=== PATIENT | male | born 1980 | race African-American/Black ===

== ENCOUNTER 2016-12-02 16:09 | Emergency (ER) | payer BC ==
[2016-12-02] MEDS ORDERED: KETOROLAC 30 MG/ML 1 ML VIAL IVP STA (17:15)
[2016-12-02] MEDS ORDERED: SODIUM CHLORIDE 0.9% 1,000 ML IV STA (17:15)
--- NOTE | 2016-12-02 17:20 | ED ---
Abdominal Pain HPI - General Chief Complaint: Abdominal Pain Stated Complaint: Abdominal Pain Time Seen by Provider: 12/02/16 17:08 Source: patient, RN notes reviewed Mode of arrival: ambulatory Limitations: no limitations - History of Present Illness Initial Comments: 36-year-old male presents to the emergency Department chief complaint of chronic lower abdominal pain. Patient states that ever since the baby he's had chronic abdominal pain. Patient states multiple surgeons multiple specialists and never figured out. Patient states that he recently moved here from [place] and he continues to have discomfort states that he could be seen. Patient denies any nausea vomiting fever or chills. Patient states pain is no different than his chronic abdominal pain. Patient states the pain gets just be so excruciating so he rushed to the emergency department. Patient states he hasn't had any other symptoms with this. Patient states there is nothing new or changing. Patient denies any recent fever, chills, shortness of breath, chest pain, back pain, nausea vomiting, numbness or tingling, dysuria or hematuria, constipation or diarrhea, headaches or visual changes, or any other current symptoms. - Related Data Home Medications Medication Instructions Recorded Confirmed Acetaminophen-Codeine 300-30mg 1 tab PO BID PRN 12/02/16 12/02/16 [Tylenol #3] Cyclobenzaprine HCl [Amrix] 15 mg PO DAILY PRN 12/02/16 12/02/16 Allergies Allergy/AdvReac Type Severity Reaction Status Date / Time No Known Allergies Allergy Verified 12/02/16 17:23 Review of Systems ROS Statement: Those systems with pertinent positive or pertinent negative responses have been documented in the HPI. ROS Other: All systems not noted in ROS Statement are negative. Past Medical History Additional Past Medical History / Comment(s): pericarditis, bowel obstruction History of Any Multi-Drug Resistant Organisms: None Reported Past Surgical History: Bowel Resection, Hernia Repair Past Psychological History: No Psychological Hx Reported Smoking Status: Current every day smoker Past Alcohol Use History: Daily Past Drug Use History: None Reported General Exam - General Exam Comments Initial Comments: General: The patient is awake and alert, in no distress, and does not appear acutely ill. Eye: Pupils are equal, round and reactive to light, extra-ocular movements are intact; there is normal conjunctiva bilaterally. No signs of icterus. Ears, nose, mouth and throat: There are moist mucous membranes. Neck: The neck is supple, there is no tenderness. Cardiovascular: There is a regular rate and rhythm. No murmur, rub or gallop is appreciated. Respiratory: Lungs are clear to auscultation, respirations are non-labored, breath sounds are equal. No wheezes, stridor, rales, or rhonchi. Gastrointestinal: Soft, non-distended, non-tender abdomen without masses or organomegaly noted. There is no rebound or guarding present. No CVA tenderness. Bowel sounds are unremarkable. Back: There is no tenderness to palpation in the midline. There is no obvious deformity. No rashes noted. Musculoskeletal: Normal ROM, no tenderness, There is no pedal edema. There is no calf tenderness or swelling. Sensation intact. Pulses equal bilaterally 2+. Neurological: CN II-XII intact, There are no obvious motor or sensory deficits. Coordination appears grossly intact. Speech is normal. Skin: Skin is warm and dry and no rashes or lesions are noted. Psychiatric: Cooperative, appropriate mood & affect, normal judgment. Limitations: no limitations Course Vital Signs 12/02/16 12/02/16 12/02/16 16:18 16:43 17:30 Temperature 97.7 F Pulse Rate 112 H 91 98 Respiratory 20 18 18 Rate Blood Pressure 132/99 114/54 129/79 O2 Sat by Pulse 99 98 98 Oximetry 12/02/16 18:00 Temperature Pulse Rate 86 Respiratory 18 Rate Blood Pressure 118/70 O2 Sat by Pulse 98 Oximetry Medical Decision Making - Medical Decision Making 36-year-old male presents to the emergency department with a chief complaint of chronic abdominal pain. This time the patient's lab work was reviewed and does not have any Modality. We Did Discuss That We'll Give Him Surgery On-Call since He Is New to the Area to Follow-Up with an Further Evaluate. Patient Stated He Understood He Isn't Given the Plan. He States He Is Going on for Years. This Time We Will Discharged Home. - Lab Data Result diagrams: 12/02/16 17:30 12/02/16 17:30 Lab Results 12/02/16 12/02/16 12/02/16 Range/Units 17:30 17:30 18:20 WBC 9.8 (3.8-10.6) k/uL RBC 4.79 (4.30-5.90) m/uL Hgb 15.3 (13.0-17.5) gm/dL Hct 46.4 (39.0-53.0) % MCV 96.8 (80.0-100.0) fL MCH 31.8 (25.0-35.0) pg MCHC 32.9 (31.0-37.0) g/dL RDW 13.0 (11.5-15.5) % Plt Count 231 (150-450) k/uL Neutrophils % 65 % Lymphocytes % 26 % Monocytes % 4 % Eosinophils % 2 % Basophils % 0 % Neutrophils # 6.3 (1.3-7.7) k/uL Lymphocytes # 2.5 (1.0-4.8) k/uL Monocytes # 0.4 (0-1.0) k/uL Eosinophils # 0.2 (0-0.7) k/uL Basophils # 0.0 (0-0.2) k/uL Sodium 144 (137-145) mmol/L Potassium 5.0 (3.5-5.1) mmol/L Chloride 106 (98-107) mmol/L Carbon Dioxide 23 (22-30) mmol/L Anion Gap 15 mmol/L BUN 10 (9-20) mg/dL Creatinine 0.90 (0.66-1.25) mg/dL Est GFR (MDRD) Af Amer >60 (>60 ml/min/1.73 sqM) Est GFR (MDRD) Non-Af >60 (>60 ml/min/1.73 sqM) Glucose 101 H (74-99) mg/dL Calcium 9.5 (8.4-10.2) mg/dL Total Bilirubin 0.5 (0.2-1.3) mg/dL AST 31 (17-59) U/L ALT 20 L (21-72) U/L Alkaline Phosphatase 83 (38-126) U/L Total Protein 8.1 (6.3-8.2) g/dL Albumin 4.6 (3.5-5.0) g/dL Amylase 58 (30-110) U/L Lipase 50 (23-300) U/L Urine Color Light Yellow Urine Appearance Clear (Clear) Urine pH 5.0 (5.0-8.0) Ur Specific [place] 1.008 (1.001-1.035) Urine Protein Negative (Negative) Urine Glucose (UA) Negative (Negative) Urine Ketones Negative (Negative) Urine Blood Negative (Negative) Urine Nitrate Negative (Negative) Urine Bilirubin Negative (Negative) Urine Urobilinogen <2.0 (<2.0) mg/dL Ur Leukocyte Esterase Negative (Negative) - Radiology Data Radiology results: report reviewed, image reviewed Disposition Clinical Impression: Chronic abdominal pain Disposition: HOME SELF-CARE Condition: Stable Instructions: Abdominal Pain (ED) Additional Instructions: Please use medication as discussed. Please follow up with family doctor if symptoms have not improved over the next two days. Please return to the emergency room if your symptoms increase or worsen or for any other concerns. Referrals: Merissa Wolfe MD [Primary Care Provider] - 1-2 days Abdullahi Vargas MD [STAFF PHYSICIAN] - 1-2 days Time of Disposition: 18:52
[2016-12-02 17:39] LABS: Basophils % (A) 0 %; CH 32.6; CHCM 33.8; Eosinophils # (A) 0.2 k/uL (0-0.7); Eosinophils % (A) 2 %; HCT 46.4 % (39.0-53.0); HDW 2.24; HGB 15.3 gm/dL (13.0-17.5); Luc # (Auto) 0.29; Luc % (Auto) 3; Lymphocytes # (A) 2.5 k/uL (1.0-4.8); Lymphocytes % (A) 26 %; MCH 31.8 pg (25.0-35.0); MCHC 32.9 g/dL (31.0-37.0); MCV 96.8 fL (80.0-100.0); Mean Platelet Volume 7.1; Monocytes # (A) 0.4 k/uL (0-1.0); Monocytes % (A) 4 %; Neutrophils # (A) 6.3 k/uL (1.3-7.7); Neutrophils % (A) 65 %; RBC 4.79 m/uL (4.30-5.90); WBC 9.8 k/uL (3.8-10.6)
--- NOTE | 2016-12-02 17:44 | XR ---
EXAMINATION TYPE: XR abdomen 2V DATE OF EXAM: 12/02/2016 5:39 PM COMPARISON: 04/07/2011 HISTORY: Abdominal pain TECHNIQUE: 2 views FINDINGS: Bowel gas pattern is normal. There is no sign of intestinal obstruction or pneumoperitoneum . Fecal pattern is normal. There is no sign of a mass. Lung bases are clear. There are no pathologic calcifications over the kidneys. IMPRESSION: Nonacute abdomen. No change.
[2016-12-02 17:52] LABS: ALT 20 U/L (21-72); AST 31 U/L (17-59); Alkaline Phosphatase 83 U/L (38-126); Amylase 58 U/L (30-110); Anion Gap 15 mmol/L; Blood Urea Nitrogen 10 mg/dL (9-20); Calcium 9.5 mg/dL (8.4-10.2); Carbon Dioxide 23 mmol/L (22-30); Chloride 106 mmol/L (98-107); Glucose 101 mg/dL (74-99); Non-African American GFR(MDRD) >60 (>60 ml/min/1.73 sqM); Sodium 144 mmol/L (137-145); Total Bilirubin 0.5 mg/dL (0.2-1.3); Total Protein 8.1 g/dL (6.3-8.2)
[2016-12-02 18:30] VITALS: RESP 18
[2016-12-02 18:35] LABS: Appearance,Urine Clear (Clear); Bilirubin,Urine Negative (Negative); Glucose,Urine (UA) Negative (Negative); Ketones,Urine Negative (Negative); Leukocyte Esterase,Urine Negative (Negative); Nitrite,Urine Negative (Negative); Protein,Urine Negative (Negative); Specific Gravity,Urine 1.008 (1.001-1.035); UA Billing (MACRO vs. MICRO) CHEM; Urobilinogen,Urine <2.0 mg/dL (<2.0)
[2016-12-02 19:11] VITALS: BP 127/82; PULSE 82; TEMP 97.2
== END 2016-12-02 19:11 | disposition home or self-care (01) ==
LOC: EC 16:09
DX: R10.30 Lower abdominal pain, unspecified (principal); G89.29 Other chronic pain; F17.200 Nicotine dependence, unspecified, uncomplicated
CPT/HCPCS: 36415; 80053; 82150; 83690; 85025; 81003; 87086; 74020; 99284; 96374; 96361; J1885

== ENCOUNTER → 2017-04-08 | Outpatient (CLI) | payer OTHER ==
--- NOTE | 2017-04-08 07:00 | XR ---
EXAMINATION TYPE: XR cervical spine limited, 3 VIEWS DATE OF EXAM ORDERED: 04/08/2017 HISTORY: pain. COMPARISON: None. FINDINGS: Vertebral body height and alignment are maintained. Atlantoaxial relationships are normal. There is extensive hypertrophic spondylosis extending from C3-4 through to C6-7. Prevertebral soft t issues are normal. There is uncovertebral joint disease, most marked at C5-6 and C6-7. IMPRESSION: 1. NO ACUTE OSSEOUS LESION. 2. DEGENERATIVE CHANGE.
--- NOTE | 2017-04-08 07:01 | XR ---
EXAMINATION TYPE: XR lumbar spine 2 or 3V, 3 VIEWS DATE OF EXAM ORDERED: 04/08/2017 HISTORY: pain. COMPARISON: None. FINDINGS: Vertebral body height and alignment are maintained. There is no spondylolysis or spondylol isthesis. Disc spaces are well maintained. The pedicles are intact. IMPRESSION: NORMAL LUMBAR SPINE.
--- NOTE | 2017-04-08 07:03 | XR ---
EXAMINATION TYPE: XR thoracic spine complete, 3 VIEWS DATE OF EXAM ORDERED: 04/08/2017 HISTORY: pain. COMPARISON: None. FINDINGS: There is a gentle dextroscoliosis. Vertebral body height and alignment are maintained. No fractures are seen. There is minimal hypertrop hic spondylosis in the mid dorsal spine. Paraspinal soft tissues are normal. The pedicles are intact. IMPRESSION: 1. NO ACUTE OSSEOUS LESION. 2. MILD DEGENERATIVE CHANGE.
== END | disposition home or self-care (01) ==
LOC: RADPROMAIN 00:09
PROVIDERS: ATTEND Internal Medicine
DX: M47.812 Spondylosis without myelopathy or radiculopathy, cervical region (principal); M47.814 Spondylosis without myelopathy or radiculopathy, thoracic region
CPT/HCPCS: 72040; 72072; 72100

== ENCOUNTER 2017-04-27 22:29 | Observation (INO) | payer BC, OTHER ==
[2017-04-27] MEDS ORDERED: RX INFO: IV CONTRAST WAS GIVEN 1 EACH MISC MISCELLANE PRN (23:00)
[2017-04-27] MEDS: SODIUM CHLORIDE 0.9% 500 ML IV SCH ×2 (23:00→23:34)
--- NOTE | 2017-04-27 23:01 | ED ---
General Adult HPI - General Chief complaint: Skin/Abscess/Foreign Body Stated complaint: Male Time Seen by Provider: 04/27/17 22:50 Source: patient Mode of arrival: ambulatory Limitations: no limitations - History of Present Illness Initial comments: Patient is a 36-year-old male with past medical history of perirectal abscess which was treated with incision and drainage and outside hospital approximately one year ago. Patient reports that for the past 3 days he has experienced perirectal pain, and today he noticed purulent foul-smelling drainage from his perineum. Patient states that approximately 3 days ago he began to notice tenderness in his right buttock around his anus. The pain has progressively worsened and he has felt increasing swelling which she now describes as feeling as though it is the size of a softball. Patient states that because of this pain and swelling he's been unable to walk or sit comfortably. Patient denies any history of hemorrhoids, Crohn's disease or inflammatory bowel disease, receptive anal intercourse or anal injury. A shunt does report that he has a "bowel tract rupture" the required abdominal surgery as a child, he states that they had to feed him with a syringe throughout hole in his head after his bowel surgery. He also states that parts were taken out of his ankle to repair his abdomen. - Related Data Home Medications Medication Instructions Recorded Confirmed No Known Home Medications [No 04/27/17 04/27/17 Known Home Medications] Allergies Allergy/AdvReac Type Severity Reaction Status Date / Time No Known Allergies Allergy Verified 04/27/17 23:03 Review of Systems ROS Statement: Those systems with pertinent positive or pertinent negative responses have been documented in the HPI. ROS Other: All systems not noted in ROS Statement are negative. Constitutional: Reports: chills. Denies: fever Eyes: Denies: vision change ENT: Denies: throat pain Respiratory: Denies: cough Cardiovascular: Denies: chest pain Endocrine: Denies: fatigue Gastrointestinal: Reports: constipation, other (Pain with bowel movements). Denies: abdominal pain, nausea, vomiting, diarrhea Genitourinary: Denies: urgency Musculoskeletal: Denies: back pain Skin: Reports: lesions Neurological: Denies: headache Psychiatric: Denies: anxiety Hematological/Lymphatic: Denies: easy bleeding, easy bruising Past Medical History Additional Past Medical History / Comment(s): pericarditis, bowel obstruction History of Any Multi-Drug Resistant Organisms: None Reported Past Surgical History: Bowel Resection, Hernia Repair Past Psychological History: No Psychological Hx Reported Smoking Status: Current every day smoker Past Alcohol Use History: Daily Past Drug Use History: Marijuana General Exam Limitations: no limitations General appearance: alert, other (Appears uncomfortable) Head exam: Present: atraumatic, normocephalic, normal inspection Eye exam: Present: normal appearance, PERRL ENT exam: Present: normal exam, mucous membranes moist Neck exam: Present: normal inspection. Absent: tenderness, meningismus, lymphadenopathy Respiratory exam: Present: normal lung sounds bilaterally. Absent: respiratory distress, wheezes, rales, rhonchi, stridor Cardiovascular Exam: Present: regular rate, tachycardia. Absent: systolic murmur, diastolic murmur GI/Abdominal exam: Present: soft, normal bowel sounds. Absent: distended, tenderness, guarding, rebound, rigid Rectal exam: Present: normal rectal tone, mass, tenderness, other (Large area of induration with purulent drainage in the left buttock lateral to the anus, patient not cooperative with rectal exam so he did state it was uncomfortable when I attempted). Absent: hemorrhoids Extremities exam: Present: normal inspection, full ROM, normal capillary refill. Absent: tenderness, pedal edema, joint swelling, calf tenderness Back exam: Absent: tenderness, CVA tenderness (R), muscle spasm, paraspinal tenderness, vertebral tenderness Neurological exam: Present: alert Psychiatric exam: Present: agitated, anxious, manic Skin exam: Present: warm, dry, other Course Vital Signs 04/27/17 04/27/17 04/28/17 22:30 23:36 00:26 Temperature 98.3 F Pulse Rate 115 H 81 76 Respiratory 20 18 16 Rate Blood Pressure 160/99 140/91 111/69 O2 Sat by Pulse 99 98 96 Oximetry - Reevaluation(s) Reevaluation #1: Patient was re-evaluated, sleeping comfortably in bed 04/28/17 01:06 Reevaluation #2: Patient was updated on plan for admission 04/28/17 01:30 Medical Decision Making - Medical Decision Making Patient seen and evaluated Vital signs reviewed, revealed tachycardia, afebrile normotensive History is somewhat convoluted as the patient appears to have flight of thoughts , he is speaking rapidly and at times nonsensical. He provided a long story about a previous "bowel tract rupture" and details including being fed with a syringe 0 hole in the top of his head. I am uncertain what the patient is trying to convey to me with the story or if he has any significance to his current condition. Physical exam concerning for perirectal abscess Complete sepsis workup and CT of the pelvis were ordered for evaluation IV Zosyn ordered for antibiotic CT reveals a left-sided. No abscess with surrounding inflammatory changes consistent with cellulitis Patient care was discussed with Dr. Vargas, covering for Dr. Cespedes who is the patient's PCP preference. Dr. Vargas recommends calling surgery carton forming machine adjuster for this patient as he has not an established patient of Dr. Cespedes. Patient care was discussed with surgery on-call, Dr Julia Castellon who accepts the admission for perirectal abscess, agrees with workup and treatment with IV Zosyn. Admission orders placed - Lab Data Result diagrams: 04/27/17 23:10 04/27/17 23:10 Lab Results 04/27/17 04/27/17 04/27/17 Range/Units 23:10 23:10 23:10 WBC 10.8 H (3.8-10.6) k/uL RBC 4.39 (4.30-5.90) m/uL Hgb 14.3 (13.0-17.5) gm/dL Hct 43.0 (39.0-53.0) % MCV 98.0 (80.0-100.0) fL MCH 32.6 (25.0-35.0) pg MCHC 33.2 (31.0-37.0) g/dL RDW 14.1 (11.5-15.5) % Plt Count 299 (150-450) k/uL Neutrophils % 60 % Lymphocytes % 29 % Monocytes % 7 % Eosinophils % 1 % Basophils % 1 % Neutrophils # 6.5 (1.3-7.7) k/uL Lymphocytes # 3.1 (1.0-4.8) k/uL Monocytes # 0.7 (0-1.0) k/uL Eosinophils # 0.1 (0-0.7) k/uL Basophils # 0.1 (0-0.2) k/uL PT (9.0-12.0) sec INR (<1.2) APTT (22.0-30.0) sec Sodium 150 H (137-145) mmol/L Potassium 4.1 (3.5-5.1) mmol/L Chloride 113 H (98-107) mmol/L Carbon Dioxide 24 (22-30) mmol/L Anion Gap 13 mmol/L BUN 7 L (9-20) mg/dL Creatinine 0.90 (0.66-1.25) mg/dL Est GFR (MDRD) Af Amer >60 (>60 ml/min/1.73 sqM) Est GFR (MDRD) Non-Af >60 (>60 ml/min/1.73 sqM) Glucose 94 (74-99) mg/dL Plasma Lactic Acid Jf 1.1 (0.7-2.0) mmol/L Calcium 9.0 (8.4-10.2) mg/dL Total Bilirubin 0.2 (0.2-1.3) mg/dL AST 34 (17-59) U/L ALT 28 (21-72) U/L Alkaline Phosphatase 111 (38-126) U/L Total Protein 7.1 (6.3-8.2) g/dL Albumin 4.1 (3.5-5.0) g/dL Urine Color Urine Appearance (Clear) Urine pH (5.0-8.0) Ur Specific [place] (1.001-1.035) Urine Protein (Negative) Urine Glucose (UA) (Negative) Urine Ketones (Negative) Urine Blood (Negative) Urine Nitrite (Negative) Urine Bilirubin (Negative) Urine Urobilinogen (<2.0) mg/dL Ur Leukocyte Esterase (Negative) 04/27/17 04/27/17 Range/Units 23:10 23:10 WBC (3.8-10.6) k/uL RBC (4.30-5.90) m/uL Hgb (13.0-17.5) gm/dL Hct (39.0-53.0) % MCV (80.0-100.0) fL MCH (25.0-35.0) pg MCHC (31.0-37.0) g/dL RDW (11.5-15.5) % Plt Count (150-450) k/uL Neutrophils % % Lymphocytes % % Monocytes % % Eosinophils % % Basophils % % Neutrophils # (1.3-7.7) k/uL Lymphocytes # (1.0-4.8) k/uL Monocytes # (0-1.0) k/uL Eosinophils # (0-0.7) k/uL Basophils # (0-0.2) k/uL PT 10.6 (9.0-12.0) sec INR 1.1 (<1.2) APTT 25.0 (22.0-30.0) sec Sodium (137-145) mmol/L Potassium (3.5-5.1) mmol/L Chloride (98-107) mmol/L Carbon Dioxide (22-30) mmol/L Anion Gap mmol/L BUN (9-20) mg/dL Creatinine (0.66-1.25) mg/dL Est GFR (MDRD) Af Amer (>60 ml/min/1.73 sqM) Est GFR (MDRD) Non-Af (>60 ml/min/1.73 sqM) Glucose (74-99) mg/dL Plasma Lactic Acid Jf (0.7-2.0) mmol/L Calcium (8.4-10.2) mg/dL Total Bilirubin (0.2-1.3) mg/dL AST (17-59) U/L ALT (21-72) U/L Alkaline Phosphatase (38-126) U/L Total Protein (6.3-8.2) g/dL Albumin (3.5-5.0) g/dL Urine Color Colorless Urine Appearance Clear (Clear) Urine pH 5.5 (5.0-8.0) Ur Specific [place] 1.001 (1.001-1.035) Urine Protein Negative (Negative) Urine Glucose (UA) Negative (Negative) Urine Ketones Negative (Negative) Urine Blood Negative (Negative) Urine Nitrite Negative (Negative) Urine Bilirubin Negative (Negative) Urine Urobilinogen <2.0 (<2.0) mg/dL Ur Leukocyte Esterase Negative (Negative) Disposition Clinical Impression: Perirectal abscess Disposition: ADMITTED IP TO THIS [facility] Condition: Good
[2017-04-27 23:40] LABS: Basophils # (A) 0.1 k/uL (0-0.2); Basophils % (A) 1 %; CH 32.6; CHCM 33.4; Eosinophils # (A) 0.1 k/uL (0-0.7); Eosinophils % (A) 1 %; HDW 2.34; HGB 14.3 gm/dL (13.0-17.5); Luc # (Auto) 0.34; Luc % (Auto) 3; Lymphocytes # (A) 3.1 k/uL (1.0-4.8); Lymphocytes % (A) 29 %; MCH 32.6 pg (25.0-35.0); MCHC 33.2 g/dL (31.0-37.0); Mean Platelet Volume 7.3; Monocytes # (A) 0.7 k/uL (0-1.0); Monocytes % (A) 7 %; Neutrophils # (A) 6.5 k/uL (1.3-7.7); Neutrophils % (A) 60 %; RBC 4.39 m/uL (4.30-5.90); RDW 14.1 % (11.5-15.5); WBC 10.8 k/uL (3.8-10.6); WBC (Perox) 9.74
[2017-04-27 23:41] LABS: Appearance,Urine Clear (Clear); Bilirubin,Urine Negative (Negative); Glucose,Urine (UA) Negative (Negative); Ketones,Urine Negative (Negative); Leukocyte Esterase,Urine Negative (Negative); Nitrite,Urine Negative (Negative); PH, Urine 5.5 (5.0-8.0); Protein,Urine Negative (Negative); Specific Gravity,Urine 1.001 (1.001-1.035); UA Billing (MACRO vs. MICRO) CHEM; Urobilinogen,Urine <2.0 mg/dL (<2.0)
[2017-04-27] MEDS ORDERED: PIPERACILLIN-TAZOBACTAM 3.375 GM in DEXTROSE/WATER 1 50ML.BAG IVPB STA (23:43)
[2017-04-27 23:48] LABS: INR 1.1 (<1.2); Prothrombin Time 10.6 sec (9.0-12.0)
[2017-04-27 23:57] LABS: ALT 28 U/L (21-72); AST 34 U/L (17-59); Alkaline Phosphatase 111 U/L (38-126); Anion Gap 13 mmol/L; Blood Urea Nitrogen 7 mg/dL (9-20); Carbon Dioxide 24 mmol/L (22-30); Chloride 113 mmol/L (98-107); Glucose 94 mg/dL (74-99); Non-African American GFR(MDRD) >60 (>60 ml/min/1.73 sqM); Potassium 4.1 mmol/L (3.5-5.1); Sodium 150 mmol/L (137-145); Total Bilirubin 0.2 mg/dL (0.2-1.3); Total Protein 7.1 g/dL (6.3-8.2)
[2017-04-28] MEDS: SODIUM CHLORIDE 0.9% 500 ML IV SCH ×2 (00:30→01:01)
--- NOTE | 2017-04-28 00:54 | CT ---
EXAM: CT Abdomen and Pelvis With Intravenous Contrast CLINICAL HISTORY: Botox TECHNIQUE: Axial computed tomography images of the abdomen and pelvis with intravenous contrast. CTDI is 15.3 mGy and DLP is 662.10 mGy-cm. This CT exam was performed using one or more of the following dose reduction techniques: automated exposure control, adjustment of the mA and/or kV according to patient size, and/or use of iterative reconstruction technique. COMPARISON: None. FINDINGS: Lower thorax: No acute findings. ABDOMEN: Liver: Unremarkable. No mass. Gallbladder and bile ducts: Unremarkable. No calcified stones. No ductal dilation. Pancreas: Unremarkable. No mass. No ductal dilation. Spleen: Unremarkable. No splenomegaly. Adrenals: Unremarkable. No mass. Kidneys and ureters: Unremarkable. No solid mass. No hydronephrosis. Stomach and bowel: Evaluation is limited without the use of oral contrast material. Within this limitation, no gross abnormality is seen. Appendix: No findings to suggest acute appendicitis. PELVIS: Bladder: Unremarkable. No mass. Reproductive: Unremarkable as visualized. ABDOMEN and PELVIS: Intraperitoneal space: Unremarkable. No free air. No significant fluid collection. Bones/joints: No acute fracture. No dislocation. Soft tissues: Subcutaneous fatty infiltration is seen involving the medial left buttock/perianal region. There appears to be a 3.9 x 2.3 x 1. 4 cm ill-defined hypodense lesion with peripheral enhancement in this region (series 3, image 89 and series 13, image 48) likely representing an abscess. Differential includes a phlegmon. Vasculature: Unremarkable. No abdominal aortic aneurysm. Lymph nodes: Unremarkable. No enlarged lymph nodes. IMPRESSION: Subcutaneous fatty infiltration involving the medial left buttock/perianal region. A 3.9 x 2.3 x 1.4 cm ill-defined hypodense lesion with peripheral enhancement in this region, likely representing a perianal abscess. Differential includes a phlegmon. MRI of the pelvis maybe performed for further evaluation/classification. Perianal abscesses can be seen in patient's with IBD, such as Crohn's. Correlate clinically.
[2017-04-28] MEDS ORDERED: NALOXONE 0.4 MG/ML 1 ML VIAL IV PRN (01:13)
[2017-04-28] MEDS: SODIUM CHLORIDE 0.9% 1,000 ML IV SCH ×4 (05:41→19:18)
--- NOTE | 2017-04-28 08:20 | P.GSHP ---
History of Present Illness H&P Date: 04/28/17 Patient is a 36-year-old black male who presents to the emergency room with a complaint of swelling in his left lateral perianal area. He states that this is become progressively worse over the past 3-4 days. He has had a prior abscess drained at this site approximately a year ago. He has had fever and chills however he is not certain as to how high his temperature has been. He denies any nausea or vomiting. His last bowel movement was yesterday. He ate last yesterday afternoon. Patient denies any trauma to the perianal area he denies any homosexual activity. Past surgical history : 1. I&D abscess perianal area 2. Abdominal bowel resection and hernia repair as an infant 3. Ankle surgery Past medical history: Negative Medications: Negative ALLERGIES: Negative Social history: Smoking one pack per day Alcohol: Beer daily Marijuana: Negative Recreational drugs: Negative Review of systems: HEENT: Negative Lungs: Negative Heart: Pericarditis approximately 3 years ago GI: As above : Negative - Constitutional Comment: thin - Cardiovascular Cardiovascular: Reports as per HPI - Respiratory Respiratory: Reports as per HPI - Gastrointestinal Gastrointestinal: Reports as per HPI - Genitourinary (Female) Genitourinary: Reports as per HPI - Integumentary Integumentary: Reports as per HPI Past Medical History Additional Past Medical History / Comment(s): pericarditis, bowel obstruction History of Any Multi-Drug Resistant Organisms: None Reported Past Surgical History: Bowel Resection, Hernia Repair Past Anesthesia/Blood Transfusion Reactions: No Reported Reaction Past Psychological History: No Psychological Hx Reported Smoking Status: Current every day smoker Past Alcohol Use History: Daily Past Drug Use History: Marijuana Medications and Allergies Home Medications Medication Instructions Recorded Confirmed Type No Known Home Medications [No 04/27/17 04/27/17 History Known Home Medications] Allergies Allergy/AdvReac Type Severity Reaction Status Date / Time No Known Allergies Allergy Verified 04/27/17 23:03 Surgical - Exam Vital Signs Temp Pulse Resp BP Pulse Ox 98.3 F 115 H 20 160/99 99 04/27/17 22:30 04/27/17 22:30 04/27/17 22:30 04/27/17 22:30 04/27/17 22:30 - General thin - Eyes normal ocular movement - ENT normal pinna, normal nares - Neck no masses, trachea midline, no lymphadectomy, no venous distension - Respiratory normal expansion, normal respiratory effort, clear to auscultation - Cardiovascular Rhythm: regular Heart Sounds: normal: S1, S2 - Abdomen no masses well healed scar Abdomen: soft, bowel sounds - Rectum Left perianal swelling Rectum: normal sphincter tone Results - Labs 04/27/17 23:10 04/27/17 23:10 Abnormal Lab Results - Last 24 Hours (Table) 04/27/17 04/27/17 Range/Units 23:10 23:10 WBC 10.8 H (3.8-10.6) k/uL Sodium 150 H (137-145) mmol/L Chloride 113 H (98-107) mmol/L BUN 7 L (9-20) mg/dL Diabetes panel 04/27/17 Range/Units 23:10 Sodium 150 H (137-145) mmol/L Potassium 4.1 (3.5-5.1) mmol/L Chloride 113 H (98-107) mmol/L Carbon Dioxide 24 (22-30) mmol/L BUN 7 L (9-20) mg/dL Creatinine 0.90 (0.66-1.25) mg/dL Glucose 94 (74-99) mg/dL Calcium 9.0 (8.4-10.2) mg/dL AST 34 (17-59) U/L ALT 28 (21-72) U/L Alkaline Phosphatase 111 (38-126) U/L Total Protein 7.1 (6.3-8.2) g/dL Albumin 4.1 (3.5-5.0) g/dL Calcium panel 04/27/17 Range/Units 23:10 Calcium 9.0 (8.4-10.2) mg/dL Albumin 4.1 (3.5-5.0) g/dL Pituitary panel 04/27/17 Range/Units 23:10 Sodium 150 H (137-145) mmol/L Potassium 4.1 (3.5-5.1) mmol/L Chloride 113 H (98-107) mmol/L Carbon Dioxide 24 (22-30) mmol/L BUN 7 L (9-20) mg/dL Creatinine 0.90 (0.66-1.25) mg/dL Glucose 94 (74-99) mg/dL Calcium 9.0 (8.4-10.2) mg/dL Adrenal panel 07/16/17 Range/Units 23:10 Sodium 150 H (137-145) mmol/L Potassium 4.1 (3.5-5.1) mmol/L Chloride 113 H (98-107) mmol/L Carbon Dioxide 24 (22-30) mmol/L BUN 7 L (9-20) mg/dL Creatinine 0.90 (0.66-1.25) mg/dL Glucose 94 (74-99) mg/dL Calcium 9.0 (8.4-10.2) mg/dL Total Bilirubin 0.2 (0.2-1.3) mg/dL AST 34 (17-59) U/L ALT 28 (21-72) U/L Alkaline Phosphatase 111 (38-126) U/L Total Protein 7.1 (6.3-8.2) g/dL Albumin 4.1 (3.5-5.0) g/dL - Imaging CT scan - abdomen: report reviewed, image reviewed CT scan - pelvis: report reviewed, image reviewed Assessment and Plan Plan: Impression/plan: 1. This 6-year-old black male with perianal abscess 2. History of substance abuse Plan: 1. I&D perianal abscess Risk and benefits have been discussed with the patient he understands and wishes to proceed. Risks include but are not limited to bleeding infection reaction to the anesthetic and the abscess returning. The patient wishes to proceed with surgery.
[2017-04-28] MEDS ORDERED: HEPARIN SODIUM,PORCINE 5,000 UNIT/ML 1 ML VIAL SQ ONE (08:21)
[2017-04-28] MEDS ORDERED: IV FLUID CONTINUATION 50 ML IV ONE (08:35)
[2017-04-28] MEDS ORDERED: LACTATED RINGERS 1,000 ML IV ONE (08:35)
[2017-04-28] MEDS ORDERED: ONDANSETRON 4 MG/2 ML VIAL IVP ONE (08:47)
[2017-04-28] MEDS ORDERED: DEXAMETHASONE SOD PHOSPHATE 10 MG/ML 1 ML VIAL IV ONE (08:48)
[2017-04-28] MEDS ORDERED: fentaNYL (PF) 50 MCG/ML 2 ML AMP ONE (09:08)
[2017-04-28] MEDS ORDERED: SUCCINYLCHOLINE CHLORIDE 100 MG/5 ML SYR IV ONE (09:08)
[2017-04-28] MEDS ORDERED: LIDOCAINE 1% INJ 10MG/ML (20 ML MDV) ONE (09:08)
[2017-04-28] MEDS ORDERED: PHENYLEPHRINE-0.9% NACL SYG 1 MG/10 ML SYRINGE ONE (09:08)
[2017-04-28] MEDS ORDERED: ePHEDrine 50 MG/ML 1 ML AMP ONE (09:08)
[2017-04-28] MEDS ORDERED: PROPOFOL 10 MG/ML 20 ML VIAL IV ONE (09:08)
[2017-04-28] MEDS ORDERED: MIDAZOLAM 2 MG/2 ML VIAL ONE (09:08)
--- NOTE | 2017-04-28 10:04 | P.OP ---
Date of Procedure: 04/28/17 Preoperative Diagnosis: Left perianal abscess Postoperative Diagnosis: phlegmon/abscess cavity/ chronic induration Procedure(s) Performed: Incision and drainage of abscess, biopsy of indurated cavity wall Implants: Anesthesia: LARS Surgeon: Desiree Castellon Estimated Blood Loss (ml): 5 IV fluids (ml): 700 Pathology: other (Wall of abscess cavity) Condition: stable Disposition: PACU Indications for Procedure: Painful indurated draining fluctuant area left perianal region Operative Findings: phlegman / Abscess cavity Description of Procedure: Patient is a 36-year-old black male who presented to the emergency room with swelling and induration and some suppurative drainage from the left perianal area. Preoperative computed tomography scan was consistent with a perianal abscess. Of significance is the fact that the patient has had drainage of this area and a smoldering complained of induration and swelling over the past year. This became more swollen and small amout of purulent draining over the past 4 days. The patient is believed to have an indurated abscess in the left perianal area. He agreed to incision and drainage. Patient was taken to the operating suite and following induction of general anesthesia was placed in the jackknife position. The area of induration was noted in the left perianal area. Incision was made in this area and the area was noted to be very indurated and approximately 5-8 mm deep before entering the area of the abscess cavity this was approximately 10 x 4 cm in size. We extended to a depth of approximately 2 cm. Upon entering the abscess cavity the area was indurated and there was some suppurative drainage. The amount of drainage was minimal. Cultures were obtained. The wall of the abscess cavity was very thickened and indurated and a biopsy was obtained of the wall. There is no evidence of any penetration into the area of the colon. The area of induration is lateral to the colon. To fully open the cavity approximately a 4 cm incision was performed. There was a 1 cm cruciate extension of the incision. Following this the cavity was well irrigated with a liter of saline solution. After being assured that there was no evidence of any bleeding the most distal portion of the limb of the incision was closed using a nylon suture. The cavity was still widely open. The skin and wall of the cavity was very thickened and indurated. The cavity was then packed with gauze. The patient tolerated the procedure in stable condition. All instrument and sponge counts were correct at the end of the case.
[2017-04-28] MEDS ORDERED: HYDROmorphone 1 MG/ML 1 ML SYRINGE IVP ONE (10:39)
[2017-04-28] MEDS: PIPERACILLIN-TAZOBACTAM 3.375 GM in DEXTROSE/WATER 1 50ML.BAG IVPB SCH ×2 (11:25→17:04)
[2017-04-28] MEDS: MORPHINE SULFATE 4 MG/ML SYRINGE IV PRN ×2 (11:38→15:15)
[2017-04-28] MEDS ORDERED: HYDROcodone/APAP 5-325MG 1 EACH TAB PO PRN (20:18)
--- NOTE | 2017-04-28 20:26 | P.CONS ---
History of Present Illness - Reason for Consult Consult date: 04/28/17 - Chief Complaint Left Buttocks pain - History of Present Illness Pleasant 36-year-old male who presents to emergency center with significant pain to his left buttocks area. The patient relates he's had small abscess in the region in the past have all been treated readily with some topical therapy. Over the last 4 days he's been having increasing amounts of pain and swelling to the left buttocks. Apparently a large abscess had developed and it was not spontaneously draining. He developed fevers and chills and increasing amount of pain. Because of the symptoms he presented to the emergency center. Imaging revealed evidence of a significant abscess in this area and counseling was taken to the operating room today for the incision and drainage. Abscess plus a large phlegmon was noted and was drained, surgical closure and a drain tube was placed. Patient's pain is better controlled at this time. Not having significant fevers or chills. Overall feeling somewhat better. Nursing staff relates there was putrid drainage from the area. At this time the patient relates that he's been able to eat and drink after surgery with no difficulty with nausea or emesis. No other new acute complaints. Review of Systems HEENT:Denies headache or acute visual change. Denies sinus or mouth discomforts. Denies neck stiffness or pain. Denies significant oral cavity pain. Denies difficulty on swallowing. Lungs: Denies significant shortness of breath, cough, sputum production, or hemoptysis. Cardiovascular: Denies significant shortness of breath, chest pain, chest wall pain, orthopnea, dyspnea on exertion, syncope Gastrointestinal:Denies nausea, vomiting, diarrhea, constipation, hematemesis, melena, hematochezia. No no significant change of bowel habit noticed. Musculoskeletal: denies significant myalgias or arthralgias. No new joint swelling. Denies new back pain. Skin: Per the HPI Neuro: Denies headache or visual change. Denies any new onset weakness or difficulty with ambulation. Denies falls or seizures. Psychiatric:Denies anxiety or depression. Endocrine: Denies significant fatigue, denies significant weight loss or weight gain. Past Medical History Additional Past Medical History / Comment(s): pericarditis, bowel obstruction History of Any Multi-Drug Resistant Organisms: None Reported Past Surgical History: Bowel Resection, Hernia Repair Past Anesthesia/Blood Transfusion Reactions: No Reported Reaction Past Psychological History: No Psychological Hx Reported Additional Psychological History / Comment(s): Patient lives with his girlfriend and her daughter. Used to work in manufacturing. Utilizes a bicycle for transportation. Positive daily tobacco and alcohol use. Denies injection or recreational drug use. No experience. No extensive travels. Pet cat in the home. Parents are alive and well Smoking Status: Current every day smoker Past Alcohol Use History: Daily Past Drug Use History: Marijuana Medications and Allergies Home Medications and Allergies Comment(s): Current Medications Sodium Chloride (Saline 0.9%) 1,000 mls @ 125 mls/hr IV .Q8H [facility] Last Admin: 04/28/17 19:18 Dose: 125 mls/hr Piperacillin/Tazobactam/ (Dextrose 3.375 gm/ IV Solution) 50 mls @ 12.5 mls/hr IVPB Q8HR [facility] Last Admin: 04/28/17 17:04 Dose: 12.5 mls/hr Miscellaneous Information (Rx Info: Iv Contrast Was Given) 1 each MISCELLANE DAILY PRN PRN Reason: Per Protocol Stop: 04/29/17 23:01 Last Admin: 04/27/17 23:34 Dose: 1 each Morphine Sulfate (Morphine Sulfate (Inj)) 4 mg IV Q4HR PRN PRN Reason: Pain Last Admin: 04/28/17 15:15 Dose: 4 mg Naloxone HCl (Narcan) 0.2 mg IV Q2M PRN PRN Reason: Opioid Reversal Home Medications Medication Instructions Recorded Confirmed Type No Known Home Medications [No 04/27/17 04/27/17 History Known Home Medications] Allergies Allergy/AdvReac Type Severity Reaction Status Date / Time No Known Allergies Allergy Verified 04/28/17 08:36 Physical Exam Vitals: Vital Signs Temp Pulse Pulse Pulse Resp BP BP 04/28/17 15:47 98.2 F 81 16 140/81 04/28/17 12:30 64 138/64 04/28/17 12:15 72 144/81 04/28/17 12:00 131/79 04/28/17 11:45 71 145/82 04/28/17 11:30 90 141/91 04/28/17 11:15 77 131/81 04/28/17 11:00 98.0 F 88 16 138/99 04/28/17 10:52 76 16 146/86 04/28/17 10:40 89 16 128/81 04/28/17 10:25 87 16 131/85 04/28/17 10:12 97.6 F 105 H 24 130/87 04/28/17 08:36 97.6 F 75 16 04/28/17 07:42 87 16 04/28/17 07:00 97.8 F 87 16 04/28/17 02:27 97.6 F 80 16 04/28/17 01:49 97.0 F L 2 L 18 117/71 04/28/17 00:26 76 16 111/69 04/27/17 23:36 81 18 140/91 04/27/17 22:30 98.3 F 115 H 20 160/99 BP Pulse Ox 04/28/17 15:47 98 04/28/17 12:30 04/28/17 12:15 04/28/17 12:00 04/28/17 11:45 04/28/17 11:30 04/28/17 11:15 04/28/17 11:00 95 04/28/17 10:52 97 04/28/17 10:40 91 L 04/28/17 10:25 98 04/28/17 10:12 99 04/28/17 08:36 141/94 97 04/28/17 07:42 136/84 99 04/28/17 07:00 136/84 99 04/28/17 02:27 131/85 98 04/28/17 01:49 95 04/28/17 00:26 96 04/27/17 23:36 98 04/27/17 22:30 99 Intake and Output 04/28/17 04/28/17 04/28/17 06:59 14:59 22:59 Intake Total 550 1785 Output Total 705 600 Balance 550 1080 -600 Intake: IV 850 Intake, IV Titration 550 935 Amount Piperacillin-Tazobactam 3 50 .375 gm In Dextrose/Water 1 50ml.bag @ 12.5 mls/hr IVPB ONCE STA Rx#: [id number] Sodium Chloride 0.9% 1, 500 935 000 ml @ 125 mls/hr IV . Q8H [facility] Rx#:[id number] Output: Urine 700 600 Estimated Blood Loss 5 Other: Voiding Method Toilet # Voids 1 Pleasant 36-year-old male who is of a thin muscular build HEENT: Anicteric conjunctiva are pink and moist nasal mucosa grossly intact without significant lesions, there is no thrush. Neck: The neck is supple without significant lymphadenopathy or thyromegaly. Lungs: Good bilateral air entry without significant crackles or wheezing. There is no significant bronchial sounds. There is no egophony or dullness. Heart: Regular rate and rhythm with an audible S1-S2, no S3 no S4. There is no significant murmur click or rub, PMI was nondisplaced. Abdomen: Positive bowel sounds soft and nontender without palpable masses or organomegaly. There was no guarding or rebound. Extremities: The upper extremities have excellent pulses they are symmetric, no significant petechiae or telangiectasia. No splinter hemorrhages were noted. The lower extremities are free from significant edema. The peripheral pulses were 2+ and symmetric. Neuro: Awake alert oriented to person place and time. There are no acute new gross focal sensory motor deficits. Skin: With the nurse present the left buttocks evaluated. The surgical wound is noted. It is not unpacked given the recent packing from surgery. The dressing is changed that was sero sanguinous and purulent. Site is tender. Minimal erythema is noted. The rectal area is intact without evidence of extensive rectal tenderness Results CBC & Chem 7: 04/27/17 23:10 04/27/17 23:10 Labs: Abnormal Lab Results - Last 24 Hours (Table) 04/27/17 04/27/17 Range/Units 23:10 23:10 WBC 10.8 H (3.8-10.6) k/uL Sodium 150 H (137-145) mmol/L Chloride 113 H (98-107) mmol/L BUN 7 L (9-20) mg/dL Microbiology - Last 24 Hours (Table) 04/28/17 09:54 Anaerobic Culture - Preliminary Perianal 04/28/17 09:54 Wound Culture - Preliminary Perianal 04/28/17 09:54 Anaerobic Culture - Preliminary Perianal 04/28/17 09:54 Wound Culture - Preliminary Perianal 04/27/17 23:10 Urine Culture - Preliminary Urine,Voided Laboratory Results WBC 10.8 k/uL (3.8-10.6) H 04/27/17 23:10 RBC 4.39 m/uL (4.30-5.90) 04/27/17 23:10 Hgb 14.3 gm/dL (13.0-17.5) 04/27/17 23:10 Hct 43.0 % (39.0-53.0) 04/27/17 23:10 MCV 98.0 fL (80.0-100.0) 04/27/17 23:10 MCH 32.6 pg (25.0-35.0) 04/27/17 23:10 MCHC 33.2 g/dL (31.0-37.0) 04/27/17 23:10 RDW 14.1 % (11.5-15.5) 04/27/17 23:10 Plt Count 299 k/uL (150-450) 04/27/17 23:10 Neutrophils % 60 % 04/27/17 23:10 Lymphocytes % 29 % 04/27/17 23:10 Monocytes % 7 % 04/27/17 23:10 Eosinophils % 1 % 04/27/17 23:10 Basophils % 1 % 04/27/17 23:10 Neutrophils # 6.5 k/uL (1.3-7.7) 04/27/17 23:10 Lymphocytes # 3.1 k/uL (1.0-4.8) 04/27/17 23:10 Monocytes # 0.7 k/uL (0-1.0) 04/27/17 23:10 Eosinophils # 0.1 k/uL (0-0.7) 04/27/17 23:10 Basophils # 0.1 k/uL (0-0.2) 04/27/17 23:10 PT 10.6 sec (9.0-12.0) 04/27/17 23:10 INR 1.1 (<1.2) 04/27/17 23:10 APTT 25.0 sec (22.0-30.0) 04/27/17 23:10 Sodium 150 mmol/L (137-145) H 04/27/17 23:10 Potassium 4.1 mmol/L (3.5-5.1) 04/27/17 23:10 Chloride 113 mmol/L (98-107) H 04/27/17 23:10 Carbon Dioxide 24 mmol/L (22-30) 04/27/17 23:10 Anion Gap 13 mmol/L 04/27/17 23:10 BUN 7 mg/dL (9-20) L 04/27/17 23:10 Creatinine 0.90 mg/dL (0.66-1.25) 04/27/17 23:10 Est GFR (MDRD) Af Amer >60 (>60 ml/min/1.73 sqM) 04/27/17 23:10 Est GFR (MDRD) Non-Af >60 (>60 ml/min/1.73 sqM) 04/27/17 23:10 Glucose 94 mg/dL (74-99) 04/27/17 23:10 Plasma Lactic Acid Jf 1.1 mmol/L (0.7-2.0) 04/27/17 23:10 Calcium 9.0 mg/dL (8.4-10.2) 04/27/17 23:10 Total Bilirubin 0.2 mg/dL (0.2-1.3) 04/27/17 23:10 AST 34 U/L (17-59) 04/27/17 23:10 ALT 28 U/L (21-72) 04/27/17 23:10 Alkaline Phosphatase 111 U/L (38-126) 04/27/17 23:10 Total Protein 7.1 g/dL (6.3-8.2) 04/27/17 23:10 Albumin 4.1 g/dL (3.5-5.0) 04/27/17 23:10 Urine Color Colorless 04/27/17 23:10 Urine Appearance Clear (Clear) 04/27/17 23:10 Urine pH 5.5 (5.0-8.0) 04/27/17 23:10 Ur Specific [place] 1.001 (1.001-1.035) 04/27/17 23:10 Urine Protein Negative (Negative) 04/27/17 23:10 Urine Glucose (UA) Negative (Negative) 04/27/17 23:10 Urine Ketones Negative (Negative) 04/27/17 23:10 Urine Blood Negative (Negative) 04/27/17 23:10 Urine Nitrite Negative (Negative) 04/27/17 23:10 Urine Bilirubin Negative (Negative) 04/27/17 23:10 Urine Urobilinogen <2.0 mg/dL (<2.0) 04/27/17 23:10 Ur Leukocyte Esterase Negative (Negative) 04/27/17 23:10 Microbiology 04/28/17 09:54 Perianal Anaerobic Culture - Preliminary 04/28/17 09:54 Perianal Wound Culture - Preliminary 04/28/17 09:54 Perianal Anaerobic Culture - Preliminary 04/28/17 09:54 Perianal Wound Culture - Preliminary 04/27/17 23:10 Urine,Voided Urine Culture - Preliminary CT scan - pelvis: image reviewed (Abscess/phlegmon noted left buttocks) Assessment and Plan (1) Abscess of left buttock Narrative/Plan: Pleasant 36-year-old male presents to hospital with increasing pain to his left buttocks. A significant abscess/phlegmon was noted. He has been taking to the operating room for the drainage. He is now doing somewhat better. Other than pain at the site he is doing well. He does have a mild leukocytosis related to the abscess process. As he improves would be a candidate for transition to oral antibiotic therapy. The patient does not have a known history of MRSA, and the drainage was quite putrid in nature which would not correlate well to staph infection. Constantly likely will utilize Augmentin the time of his discharge. Local wound care could be with iodoform gauze, as long as his girlfriend can be trained to pack. Offloaded the site well he is in bed We discussed the etiology. He utilizes a bicycle for transportation. It is likely the trauma from the seat that is causing the difficulty. He should obtain a different seat that with improved padding should cause less trauma to this area. As noted he is thin and does not have a significant amount of underlying fatty subcutaneous tissue. Status: Acute (2) Leukocytosis Status: Acute
[2017-04-28] MEDS: HYDROcodone/APAP 5-325MG 1 EACH TAB PO PRN (21:04)
[2017-04-29] MEDS: PIPERACILLIN-TAZOBACTAM 3.375 GM in DEXTROSE/WATER 1 50ML.BAG IVPB SCH ×4 (00:14→23:50)
[2017-04-29] MEDS: HYDROcodone/APAP 5-325MG 1 EACH TAB PO PRN ×4 (03:33→23:50)
[2017-04-29] MEDS: SODIUM CHLORIDE 0.9% 1,000 ML IV SCH (11:06)
[2017-04-29] MEDS ORDERED: LACTATED RINGERS 1,000 ML IV SCH (11:45)
--- NOTE | 2017-04-29 12:12 | P.CONS ---
History of Present Illness - Reason for Consult Hypernatremia - History of Present Illness Patient is a 36-year-old black male who presents to the emergency room with a complaint of swelling in his left lateral perianal area. He states that this is become progressively worse over the past 3-4 days. He has had a prior abscess drained at this site approximately a year ago. He has had fever and chills however he is not certain as to how high his temperature has been. He denies any nausea or vomiting. His last bowel movement was yesterday. He ate last yesterday afternoon. She underwent incision and drainage and infectious disease evaluate the patient and patient is presently on Zosyn for the buttock abscess. Patient is on IV normal saline leading to hyponatremia which is being disconnected and patient was encouraged to drink water will repeat basic metabolic profile today. Review of Systems REVIEW OF SYSTEMS: CONSTITUTIONAL: No fever, no malaise, no fatigue. HEENT: No recent visual problems or hearing problems. Denied any sore throat. CARDIOVASCULAR: No chest pain, orthopnea, PND, no palpitations, no syncope. PULMONARY: No shortness of breath, no cough, no hemoptysis. GASTROINTESTINAL: No diarrhea, no nausea, no vomiting, no abdominal pain. Normoactive bowel sounds. NEUROLOGICAL: No headaches, no weakness, no numbness. HEMATOLOGICAL: Denies any bleeding or petechiae. GENITOURINARY: Denies any burning micturition, frequency, or urgency. MUSCULOSKELETAL/RHEUMATOLOGICAL: Denies any joint pain, swelling, or any muscle pain. ENDOCRINE: Denies any polyuria or polydipsia. The rest of the 14-point review of systems is negative. Past Medical History Additional Past Medical History / Comment(s): pericarditis, bowel obstruction History of Any Multi-Drug Resistant Organisms: None Reported Past Surgical History: Bowel Resection, Hernia Repair Past Anesthesia/Blood Transfusion Reactions: No Reported Reaction Past Psychological History: No Psychological Hx Reported Additional Psychological History / Comment(s): Patient lives with his girlfriend and her daughter. Used to work in manufacturing. Utilizes a bicycle for transportation. Positive daily tobacco and alcohol use. Denies injection or recreational drug use. No experience. No extensive travels. Pet cat in the home. Parents are alive and well Smoking Status: Current every day smoker Past Alcohol Use History: Daily Past Drug Use History: Marijuana Medications and Allergies Home Medications Medication Instructions Recorded Confirmed Type No Known Home Medications [No 04/27/17 04/27/17 History Known Home Medications] Allergies Allergy/AdvReac Type Severity Reaction Status Date / Time No Known Allergies Allergy Verified 04/28/17 08:36 Physical Exam Vitals: Vital Signs Temp Pulse Resp BP Pulse Ox 04/29/17 07:00 98.1 F 51 L 14 154/90 95 04/29/17 04:50 97 F L 99 18 161/99 96 04/28/17 15:47 98.2 F 81 16 140/81 98 04/28/17 12:30 64 138/64 04/28/17 12:15 72 144/81 Intake and Output 04/28/17 04/29/17 04/29/17 22:59 06:59 14:59 Intake Total 455 1505 Output Total 950 300 Balance -495 1205 Intake: Intake, IV Titration 1000 Amount Sodium Chloride 0.9% 1, 1000 000 ml @ 125 mls/hr IV . Q8H [facility] Rx#:[id number] Oral 455 505 Output: Urine 950 300 Other: # Voids 2 1 PHYSICAL EXAMINATION: GENERAL: The patient is alert and oriented x3, not in any acute distress. Well developed, well nourished. HEENT: Pupils are round and equally reacting to light. EOMI. No scleral icterus. No conjunctival pallor. Normocephalic, atraumatic. No pharyngeal erythema. No thyromegaly. CARDIOVASCULAR: S1 and S2 present. No murmurs, rubs, or gallops. Is having loud S1 and S2 probably related to his thin body habitus PULMONARY: Chest is clear to auscultation, no wheezing or crackles. ABDOMEN: Soft, nontender, nondistended, normoactive bowel sounds. No palpable organomegaly. MUSCULOSKELETAL: No joint swelling or deformity. EXTREMITIES: No cyanosis, clubbing, or pedal edema. NEUROLOGICAL: Gross neurological examination did not reveal any focal deficits. SKIN: Abscess site area exam deferred to infectious disease and surgery. Results CBC & Chem 7: 04/27/17 23:10 04/27/17 23:10 Labs: Microbiology - Last 24 Hours (Table) 04/28/17 09:54 Gram Stain - Preliminary Perianal Wound Culture - Preliminary 04/28/17 09:54 Gram Stain - Preliminary Perianal Wound Culture - Preliminary 04/27/17 23:10 Blood Culture - Preliminary Blood No Growth after 24 hours 04/28/17 09:54 Anaerobic Culture - Preliminary Perianal 04/28/17 09:54 Anaerobic Culture - Preliminary Perianal 04/27/17 23:10 Urine Culture - Preliminary Urine,Voided Assessment and Plan Plan: 1 abscess in the left buttock: Patient is status post incision and drainage patient is on Zosyn. Patient was encouraged to drink water because of hyponatremia and normal saline will be dyspnea. 2 hypernatremia secondary to IV normal saline will repeat basic met profile profiled describing IV normal saline. 3 Alcoholl abuse: Patient will be monitored for any withdrawal symptoms which I do not expect. counselling was provided 4 nicotine abuse: Counseling was provided
[2017-04-29 12:29] LABS: Anion Gap 8 mmol/L; Blood Urea Nitrogen 9 mg/dL (9-20); Calcium 8.6 mg/dL (8.4-10.2); Carbon Dioxide 24 mmol/L (22-30); Chloride 106 mmol/L (98-107); Glucose 89 mg/dL (74-99); Non-African American GFR(MDRD) >60 (>60 ml/min/1.73 sqM); Potassium 3.9 mmol/L (3.5-5.1); Sodium 138 mmol/L (137-145)
[2017-04-29] MEDS: MORPHINE SULFATE 4 MG/ML SYRINGE IV PRN (13:57)
--- NOTE | 2017-04-29 13:58 | P.PN ---
Subjective Patient is postop day #1 I&D of perianal abscess the patient was also noted to have hypernatremia which has been addressed as per internal medicine. His sodium was 1:15 is now 138. The patient also has a history of alcohol abuse and smoking. The patient today states that his discomfort has improved. Preliminary cultures revealed no organisms and no growth after 24 hours. He has been seen by Dr. Chinchilla who has suggested Augmentin at the time of discharge. Additionally it was felt that the etiology of this may be from top, related to a bicycle which he uses for transportation. Objective - Vital Signs Vital signs: Vital Signs Temp 98.1 F 04/29/17 07:00 Pulse 51 L 04/29/17 07:00 Resp 14 04/29/17 07:00 BP 154/90 04/29/17 07:00 Pulse Ox 95 04/29/17 07:00 Intake & Output 04/28/17 04/29/17 04/29/17 18:59 06:59 18:59 Intake Total 1785 1960 Output Total 1305 650 Balance 480 1310 Intake: IV 850 Intake, IV Titration 935 1000 Amount Sodium Chloride 0.9% 1, 935 1000 000 ml @ 125 mls/hr IV . Q8H [facility] Rx#:[id number] Oral 960 Output: Urine 1300 650 Estimated Blood Loss 5 Other: # Voids 1 - Constitutional General appearance: Present: thin - Respiratory Respiratory: bilateral: CTA - Cardiovascular Rhythm: regular Heart sounds: normal: S1, S2 - Gastrointestinal Gastrointestinal Comment(s): Perianal incision clean and dry/ packing in place General gastrointestinal: Present: normal bowel sounds, soft - Psychiatric Psychiatric: Present: appropriate affect, intact judgment & insight - Labs CBC & Chem 7: 04/27/17 23:10 04/29/17 12:05 Labs: Microbiology - Last 24 Hours (Table) 04/27/17 23:10 Urine Culture - Final Urine,Voided 04/28/17 09:54 Gram Stain - Preliminary Perianal Wound Culture - Preliminary 04/28/17 09:54 Gram Stain - Preliminary Perianal Wound Culture - Preliminary 04/27/17 23:10 Blood Culture - Preliminary Blood No Growth after 24 hours 04/28/17 09:54 Anaerobic Culture - Preliminary Perianal 04/28/17 09:54 Anaerobic Culture - Preliminary Perianal Assessment and Plan Plan: Impression/plan: 1. This 36-year-old black male with perianal abscess 2. History of substance abuse Plan: 1. I&D perianal abscess/postop day #1 2. Probable discharge home tomorrow
[2017-04-29 15:01] VITALS: RESP 16
[2017-04-30] MEDS: MORPHINE SULFATE 4 MG/ML SYRINGE IV PRN (04:31)
[2017-04-30 07:23] LABS: Anion Gap 7 mmol/L; Blood Urea Nitrogen 8 mg/dL (9-20); Carbon Dioxide 29 mmol/L (22-30); Chloride 103 mmol/L (98-107); Glucose 81 mg/dL (74-99); Non-African American GFR(MDRD) >60 (>60 ml/min/1.73 sqM); Potassium 4.2 mmol/L (3.5-5.1); Sodium 139 mmol/L (137-145)
[2017-04-30 08:12] VITALS: BP 175/100; PULSE 57; TEMP 97.4
[2017-04-30] MEDS: PIPERACILLIN-TAZOBACTAM 3.375 GM in DEXTROSE/WATER 1 50ML.BAG IVPB SCH (11:17)
[2017-04-30] MEDS: HYDROcodone/APAP 5-325MG 1 EACH TAB PO PRN (11:27)
--- NOTE | 2017-04-30 14:10 | P.PN ---
Subjective Patient is postop day #2 I&D of perianal abscess the patient was also noted to have hypernatremia which has been addressed as per internal medicine. The patient also has a history of alcohol abuse and smoking. The patient today states that his discomfort has improved. Preliminary cultures revealed no organisms and no growth after 24 hours. He has been seen by Dr. Chinchilla who has suggested Augmentin at the time of discharge. Additionally it was felt that the etiology of this may be from iritation related to a bicycle which he uses for transportation. Objective - Vital Signs Vital signs: Vital Signs Temp 97.4 F L 04/30/17 07:00 Pulse 57 L 04/30/17 07:00 Resp 16 04/30/17 07:00 BP 175/100 04/30/17 07:00 Pulse Ox 97 04/30/17 07:00 Intake & Output 04/29/17 04/30/17 04/30/17 18:59 06:59 18:59 Intake Total 2605 240 Output Total 1275 600 Balance 1330 -360 Intake: Intake, IV Titration 1050 Amount Piperacillin-Tazobactam 3 50 .375 gm In Dextrose/Water 1 50ml.bag @ 12.5 mls/hr IVPB Q8HR [facility] Rx#: [id number] Sodium Chloride 0.9% 1, 1000 000 ml @ 125 mls/hr IV . Q8H [facility] Rx#:[id number] Oral 1555 240 Output: Urine 1275 600 Other: Voiding Method Urinal # Voids 2 2 - Constitutional General appearance: Present: thin - Respiratory Respiratory: bilateral: CTA - Cardiovascular Rhythm: regular Heart sounds: normal: S1, S2 - Gastrointestinal Gastrointestinal Comment(s): Perianal incision clean and dry Decreased induration General gastrointestinal: Present: normal bowel sounds, soft - Psychiatric Psychiatric: Present: appropriate affect, intact judgment & insight - Labs CBC & Chem 7: 04/27/17 23:10 04/30/17 06:18 Labs: Abnormal Lab Results - Last 24 Hours (Table) 04/30/17 Range/Units 06:18 BUN 8 L (9-20) mg/dL Microbiology - Last 24 Hours (Table) 04/28/17 09:54 Gram Stain - Final Perianal Wound Culture - Final 04/28/17 09:54 Gram Stain - Final Perianal Wound Culture - Final 07/16/17 23:10 Blood Culture - Preliminary Blood No Growth after 48 hours 04/27/17 23:10 Urine Culture - Final Urine,Voided Assessment and Plan Plan: Impression/plan: 1. This 36-year-old black male with perianal abscess 2. History of substance abuse Plan: 1. I&D perianal abscess/postop day #2 2. Probable discharge home today
--- NOTE | 2017-04-30 14:18 | P.DS ---
Providers Date of admission: 04/28/17 01:17 Attending physician: Desiree Castellon Consults: 04/28/17 10:04 Consult Physician Routine Consulting Provider: Calvin Chinchilla Consult Reason/Comments: abcess Do you want consulting provider notified?: Yes 04/29/17 05:45 Consult Physician Routine Consulting Provider: Ha Leavitt Consult Reason/Comments: Low Heart rate, high blood pressure Do you want consulting provider notified?: Yes, Notify in am Primary care physician: Yan[facility] Course: Patient is a 36-year-old black male who presented to the emergency room with swelling in the perianal area. He underwent incision and drainage in the operating room. He is feeling better at this time with decreased induration. He is been seen by infectious disease who recommended discharge home on Augmentin. Patient Condition at Discharge: Good Plan - Discharge Summary New Discharge Prescriptions: New Amoxic-Pot Clav 500-125 mg [Augmentin 500-125 mg] 1 tab PO Q12HR #14 tab Discharge Medication List Amoxic-Pot Clav 500-125 mg [Augmentin 500-125 mg] 1 tab PO Q12HR #14 tab [Rx] Follow up Appointment(s)/Referral(s): Merissa Wolfe MD [Primary Care Provider] - 1-2 days Activity/Diet/Wound Care/Special Instructions: Sitz baths 3 times a day Iodoform gauze packing change twice a day Do not drive until seen by Dr. Lora Do not drive if taking narcotic pain medication Discharge Disposition: HOME SELF-CARE
--- NOTE | 2017-04-30 16:59 | P.PN ---
Subjective Principal diagnosis: Abscess left buttocks Pleasant 36-year-old male who presents to emergency center with significant pain to his left buttocks area. The patient relates he's had small abscess in the region in the past have all been treated readily with some topical therapy. Over the last 4 days he's been having increasing amounts of pain and swelling to the left buttocks. Apparently a large abscess had developed and it was not spontaneously draining. He developed fevers and chills and increasing amount of pain. Because of the symptoms he presented to the emergency center. Imaging revealed evidence of a significant abscess in this area and counseling was taken to the operating room today for the incision and drainage. Abscess plus a large phlegmon was noted and was drained, surgical closure and a drain tube was placed. Patient's pain is better controlled at this time. Not having significant fevers or chills. Overall feeling somewhat better. Nursing staff relates there was putrid drainage from the area. At this time the patient relates that he's been able to eat and drink after surgery with no difficulty with nausea or emesis. No other new acute complaints. Is feeling considerably better today. Pain is improving. Drainage is improving. Ability to move about his improved. Fevers resolved. Objective - Vital Signs Vital signs: Vital Signs Temp 97.4 F L 04/30/17 07:00 Pulse 57 L 04/30/17 07:00 Resp 16 04/30/17 07:00 BP 175/100 04/30/17 07:00 Pulse Ox 97 04/30/17 07:00 Intake & Output 04/29/17 04/30/17 04/30/17 18:59 06:59 18:59 Intake Total 2605 240 Output Total 1275 600 Balance 1330 -360 Intake: Intake, IV Titration 1050 Amount Piperacillin-Tazobactam 3 50 .375 gm In Dextrose/Water 1 50ml.bag @ 12.5 mls/hr IVPB Q8HR LO Rx#: [id number] Sodium Chloride 0.9% 1, 1000 000 ml @ 125 mls/hr IV . Q8H LO Rx#:[id number] Oral 1555 240 Output: Urine 1275 600 Other: Voiding Method Urinal # Voids 2 2 - Exam Pleasant 36-year-old male who is of a thin muscular build HEENT: Anicteric conjunctiva are pink and moist nasal mucosa grossly intact without significant lesions, there is no thrush. Neck: The neck is supple without significant lymphadenopathy or thyromegaly. Lungs: Good bilateral air entry without significant crackles or wheezing. There is no significant bronchial sounds. There is no egophony or dullness. Heart: Regular rate and rhythm with an audible S1-S2, no S3 no S4. There is no significant murmur click or rub, PMI was nondisplaced. Abdomen: Positive bowel sounds soft and nontender without palpable masses or organomegaly. There was no guarding or rebound. Extremities: The upper extremities have excellent pulses they are symmetric, no significant petechiae or telangiectasia. No splinter hemorrhages were noted. The lower extremities are free from significant edema. The peripheral pulses were 2+ and symmetric. Neuro: Awake alert oriented to person place and time. There are no acute new gross focal sensory motor deficits. Skin: left buttocks evaluated. The surgical wound is noted. It is unpacked very little difficulty repacking was without significant pain The dressing is changed that was sero sanguinous no longer purulent. Tenderness is improved erythema resolved. The rectal area is intact without evidence of extensive rectal tenderness - Labs CBC & Chem 7: 04/27/17 23:10 04/30/17 06:18 Labs: Abnormal Lab Results - Last 24 Hours (Table) 04/30/17 Range/Units 06:18 BUN 8 L (9-20) mg/dL Microbiology - Last 24 Hours (Table) 04/28/17 09:54 Gram Stain - Final Perianal Wound Culture - Final 04/28/17 09:54 Gram Stain - Final Perianal Wound Culture - Final 04/27/17 23:10 Blood Culture - Preliminary Blood No Growth after 48 hours Laboratory Results WBC 10.8 k/uL (3.8-10.6) H 04/27/17 23:10 RBC 4.39 m/uL (4.30-5.90) 04/27/17 23:10 Hgb 14.3 gm/dL (13.0-17.5) 04/27/17 23:10 Hct 43.0 % (39.0-53.0) 04/27/17 23:10 MCV 98.0 fL (80.0-100.0) 04/27/17 23:10 MCH 32.6 pg (25.0-35.0) 04/27/17 23:10 MCHC 33.2 g/dL (31.0-37.0) 04/27/17 23:10 RDW 14.1 % (11.5-15.5) 04/27/17 23:10 Plt Count 299 k/uL (150-450) 04/27/17 23:10 Neutrophils % 60 % 04/27/17 23:10 Lymphocytes % 29 % 04/27/17 23:10 Monocytes % 7 % 04/27/17 23:10 Eosinophils % 1 % 04/27/17 23:10 Basophils % 1 % 04/27/17 23:10 Neutrophils # 6.5 k/uL (1.3-7.7) 04/27/17 23:10 Lymphocytes # 3.1 k/uL (1.0-4.8) 04/27/17 23:10 Monocytes # 0.7 k/uL (0-1.0) 04/27/17 23:10 Eosinophils # 0.1 k/uL (0-0.7) 04/27/17 23:10 Basophils # 0.1 k/uL (0-0.2) 04/27/17 23:10 PT 10.6 sec (9.0-12.0) 04/27/17 23:10 INR 1.1 (<1.2) 04/27/17 23:10 APTT 25.0 sec (22.0-30.0) 04/27/17 23:10 Sodium 139 mmol/L (137-145) 04/30/17 06:18 Potassium 4.2 mmol/L (3.5-5.1) 04/30/17 06:18 Chloride 103 mmol/L (98-107) 04/30/17 06:18 Carbon Dioxide 29 mmol/L (22-30) 04/30/17 06:18 Anion Gap 7 mmol/L 04/30/17 06:18 BUN 8 mg/dL (9-20) L 04/30/17 06:18 Creatinine 0.90 mg/dL (0.66-1.25) 04/30/17 06:18 Est GFR (MDRD) Af Amer >60 (>60 ml/min/1.73 sqM) 04/30/17 06:18 Est GFR (MDRD) Non-Af >60 (>60 ml/min/1.73 sqM) 04/30/17 06:18 Glucose 81 mg/dL (74-99) 04/30/17 06:18 Plasma Lactic Acid Jf 1.1 mmol/L (0.7-2.0) 04/27/17 23:10 Calcium 9.0 mg/dL (8.4-10.2) 04/30/17 06:18 Total Bilirubin 0.2 mg/dL (0.2-1.3) 04/27/17 23:10 AST 34 U/L (17-59) 04/27/17 23:10 ALT 28 U/L (21-72) 04/27/17 23:10 Alkaline Phosphatase 111 U/L (38-126) 04/27/17 23:10 Total Protein 7.1 g/dL (6.3-8.2) 04/27/17 23:10 Albumin 4.1 g/dL (3.5-5.0) 04/27/17 23:10 Urine Color Colorless 04/27/17 23:10 Urine Appearance Clear (Clear) 04/27/17 23:10 Urine pH 5.5 (5.0-8.0) 04/27/17 23:10 Ur Specific [place] 1.001 (1.001-1.035) 04/27/17 23:10 Urine Protein Negative (Negative) 04/27/17 23:10 Urine Glucose (UA) Negative (Negative) 04/27/17 23:10 Urine Ketones Negative (Negative) 04/27/17 23:10 Urine Blood Negative (Negative) 04/27/17 23:10 Urine Nitrite Negative (Negative) 04/27/17 23:10 Urine Bilirubin Negative (Negative) 04/27/17 23:10 Urine Urobilinogen <2.0 mg/dL (<2.0) 04/27/17 23:10 Ur Leukocyte Esterase Negative (Negative) 04/27/17 23:10 Microbiology 04/28/17 09:54 Perianal Gram Stain - Final 04/28/17 09:54 Perianal Wound Culture - Final 04/28/17 09:54 Perianal Gram Stain - Final 04/28/17 09:54 Perianal Wound Culture - Final 04/27/17 23:10 Blood Blood Culture - Preliminary No Growth after 48 hours 04/27/17 23:10 Urine,Voided Urine Culture - Final 04/28/17 09:54 Perianal Anaerobic Culture - Preliminary 04/28/17 09:54 Perianal Anaerobic Culture - Preliminary Assessment and Plan (1) Abscess of left buttock Narrative/Plan: Pleasant 36-year-old male presents to hospital with increasing pain to his left buttocks. A significant abscess/phlegmon was noted. He has been taking to the operating room for the drainage. He is now doing somewhat better. Other than pain at the site he is doing well. He does have a mild leukocytosis related to the abscess process. As he improves would be a candidate for transition to oral antibiotic therapy. The patient does not have a known history of MRSA, and the drainage was quite putrid in nature which would not correlate well to staph infection. Constantly likely will utilize Augmentin the time of his discharge. Local wound care could be with iodoform gauze, as long as his girlfriend can be trained to pack. Offloaded the site well he is in bed We discussed the etiology. He utilizes a bicycle for transportation. It is likely the trauma from the seat that is causing the difficulty. He should obtain a different seat that with improved padding should cause less trauma to this area. As noted he is thin and does not have a significant amount of underlying fatty subcutaneous tissue. As noted as noted the patient is improved. He said good drainage of the abscess. His pain is under good control. No evidence of any positive blood cultures. He is ready for discharge to home. Antibiotic therapy is alter to Augmentin to cover the usual pathogens especially since MRSA has not been isolated. Limiting trauma to his buttocks will be helpful and changing his bicycle seat may also help. Home care nurse will help with packing likely he' ll the next week or so. If Needed he can be sent from the surgical office for outpatient follow-up Status: Acute (2) Leukocytosis Status: Acute
== END 2017-04-30 18:32 | disposition home health service (06) ==
LOC: EC 22:29 → 3SUR 04-28 01:17 → INTOOBSV 04-28 01:17
PROVIDERS: ADMIT Surgery; ATTEND Surgery
DX: K61.0 Anal abscess (principal); E87.0 Hyperosmolality and hypernatremia; L02.31 Cutaneous abscess of buttock; R00.0 Tachycardia, unspecified; I31.9 Disease of pericardium, unspecified; K56.60 Unspecified intestinal obstruction; F17.210 Nicotine dependence, cigarettes, uncomplicated; F10.10 Alcohol abuse, uncomplicated
CPT/HCPCS: 46050; 96366 ×3; 96365; 99285; 36415; 93005; 88304; 80053; 80048 ×2; 83605; 85025; 85610; 85730; 81003; 87040; 87070; 87086; 87205; 87075; 74177; G0378 ×3; J2250; J2270 ×3; J1644; J1100; J2405; J2001; J3010; J1170; J2543 ×3; Q9967; J2370; J0330; J2704

== ENCOUNTER → 2019-03-17 | Outpatient (CLI) | payer OTHER ==
--- NOTE | 2019-03-18 21:59 | EST ---
EXERCISE STRESS DATE OF SERVICE: 03/18/2019 AGE: 38 SEX: Male. HT: 5'9" WT: 142 pounds PROTOCOL: STAGE: 3 DURATION OF EXERCISE: 9:00 HEART RATE REST: 91 BLOOD PRESSURE REST: 153/96 MAXIMUM HEART RATE ACHIEVED: 169 MAXIMUM BLOOD PRESSURE: 180/88 85% MPHR: 155 100% MPHR: 182 METS: 10.1 INDICATIONS: Chest pain. CLINICAL INFORMATION: STRESS DATA: Pre-testing physical examination showed a heart rate of 91, pressure 153/96 mmHg. Baseline EKG showed sinus mechanism. The patient exercised on the treadmill according to Dillon protocol for a total of 9 minutes and achieved 10.1 METs. Maximum heart rate was 169, which is about 100% of maximum predicted heart rate. Maximum blood pressure was 180/88 mmHg. Clinically, the patient did not have any symptoms of chest pain or discomfort and the EKG did not show any significant ST or T- wave abnormalities concerning for ischemia. CONCLUSION: 1. Excellent exercise tolerance. 2. Normal EKG in response to exercise. 3. Essentially normal stress test for the patient. MMODL / IJN: [id number] /
== END | disposition home or self-care (01) ==
LOC: RADNMMAIN 09:05
PROVIDERS: ATTEND Family Medicine
DX: R94.31 Abnormal electrocardiogram [ECG] [EKG] (principal)
CPT/HCPCS: 93017

== ENCOUNTER 2019-07-26 20:55 | Observation (INO) | payer OTHER ==
--- NOTE | 2019-07-26 21:00 | ED ---
Chest Pain HPI - General Stated Complaint: Poss Stemi Time Seen by Provider: 07/26/19 20:56 Source: RN notes reviewed, old records reviewed Mode of arrival: EMS Limitations: no limitations - History of Present Illness Initial Comments: This is a 38-year-old male the ER for evaluation of chest pain today chest pain much improved currently. History of high blood pressure possible history of MO although he did not follow up, family history of heart disease and history of smoking MARIJUANA and cigarettes. Patient comes in with chest pain left-sided heaviness now currently improved. Otherwise no travel history no sick contacts no shortness of breath currently no diaphoresis cough or congestion. No recent fevers or illness MD Complaint: chest pain -: hour(s) (1) Onset: during rest Pain Location: left chest Pain Radiation: none Severity: moderate Severity scale (1-10): 4 Quality: tightness Consistency: constant Improves With: nothing Worsens With: nothing Anginal Symptoms: dyspnea Treatments Prior to Arrival: none - Related Data Home Medications Medication Instructions Recorded Confirmed Hydrochlorothiazide 25 mg PO DAILY 07/26/19 07/26/19 Lisinopril 20 mg PO DAILY 07/26/19 07/26/19 Allergies Allergy/AdvReac Type Severity Reaction Status Date / Time No Known Allergies Allergy Verified 07/26/19 21:13 Review of Systems ROS Statement: Those systems with pertinent positive or pertinent negative responses have been documented in the HPI. ROS Other: All systems not noted in ROS Statement are negative. EKG Findings - EKG Comments: EKG Findings:: EKG shows sinus rhythm rate of 83, IL 124, QRS 86, QTc 425 Past Medical History Additional Past Medical History / Comment(s): pericarditis, bowel obstruction History of Any Multi-Drug Resistant Organisms: None Reported Past Surgical History: Bowel Resection, Hernia Repair Past Anesthesia/Blood Transfusion Reactions: No Reported Reaction Past Psychological History: No Psychological Hx Reported Additional Psychological History / Comment(s): Patient lives with his girlfriend and her daughter. Used to work in manufacturing. Utilizes a bicycle for transportation. Positive daily tobacco and alcohol use. Denies injection or recreational drug use. No experience. No extensive travels. Pet cat in the home. Parents are alive and well Smoking Status: Current every day smoker Past Alcohol Use History: Daily Past Drug Use History: Marijuana General Exam General appearance: alert, in no apparent distress Head exam: Present: atraumatic, normocephalic, normal inspection Eye exam: Present: normal appearance, PERRL, EOMI. Absent: scleral icterus, conjunctival injection, periorbital swelling ENT exam: Present: normal exam, mucous membranes moist Neck exam: Present: normal inspection. Absent: tenderness, meningismus, lymphadenopathy Respiratory exam: Present: normal lung sounds bilaterally. Absent: respiratory distress, wheezes, rales, rhonchi, stridor Cardiovascular Exam: Present: regular rate, normal rhythm, normal heart sounds. Absent: systolic murmur, diastolic murmur, rubs, gallop, clicks GI/Abdominal exam: Present: soft, normal bowel sounds. Absent: distended, tenderness, guarding, rebound, rigid Extremities exam: Present: normal inspection, full ROM, normal capillary refill. Absent: tenderness, pedal edema, joint swelling, calf tenderness Back exam: Present: normal inspection Neurological exam: Present: alert, oriented X3, CN II-XII intact Psychiatric exam: Present: normal affect, normal mood Skin exam: Present: warm, dry, intact, normal color. Absent: rash Course Vital Signs 07/26/19 07/26/19 20:56 21:05 Temperature 97.1 F L Pulse Rate 70 Respiratory 18 20 Rate Blood Pressure 143/98 O2 Sat by Pulse 99 Oximetry - Reevaluation(s) Reevaluation #1: 07/26/19 22:51 Medical records reviewed Reevaluation #2: 07/26/19 22:51 Patient has no current chest pain - Consultations Consultation #1: With cardiology, cardiology is aware of EKGs, will treat as chest pain multiple conversations with cardiology repeat EKGs, will admit for cardiology observation, Dr. Barnes is agreeable Chest Pain MDM - MDM 38 male the ER with history of heart disease high blood pressure smoking coming in with chest pain. Patient will be admitted, patient has history of chest pain. He thinks he has a history of heart attack. Abnormal EKGs. Patient be admitted for cardiac observation and management Critical Care Time Critical Care Time: Yes Total Critical Care Time: 31 Disposition Clinical Impression: Chest pain Disposition: [facility] Condition: Undetermined Is patient prescribed a controlled substance at d/c from ED?: No Referrals: Nehemiah Bedoya DO [Primary Care Provider] - 1-2 days
[2019-07-26] MEDS ORDERED: SODIUM CHLORIDE 0.9% 1,000 ML IV STA (21:16)
[2019-07-26 21:25] LABS: Basophils % (A) 0 %; Eosinophils # (A) 0.2 k/uL (0-0.7); Eosinophils % (A) 2 %; HCT 42.7 % (39.0-53.0); Lymphocytes # (A) 3.2 k/uL (1.0-4.8); Lymphocytes % (A) 31 %; MCH 33.8 pg (25.0-35.0); MCHC 35.1 g/dL (31.0-37.0); MCV 96.3 fL (80.0-100.0); Mean Platelet Volume 6.2; Monocytes # (A) 0.8 k/uL (0-1.0); Monocytes % (A) 7 %; Neutrophils # (A) 5.9 k/uL (1.3-7.7); Neutrophils % (A) 56 %; Platelet Count 219 k/uL (150-450); RBC 4.44 m/uL (4.30-5.90); RDW 12.8 % (11.5-15.5); WBC 10.5 k/uL (3.8-10.6)
[2019-07-26 21:34] LABS: INR 0.9 (<1.2); Prothrombin Time 10.1 sec (9.0-12.0)
[2019-07-26 21:35] LABS: ALT 34 U/L (21-72); AST 45 U/L (17-59); African American GFR (CKD) >90 (>60 ml/min/1.73 sqM); Albumin 4.5 g/dL (3.5-5.0); Alkaline Phosphatase 87 U/L (38-126); Anion Gap 14 mmol/L; Blood Urea Nitrogen 15 mg/dL (9-20); Calcium 9.5 mg/dL (8.4-10.2); Carbon Dioxide 18 mmol/L (22-30); Chloride 104 mmol/L (98-107); Creatine Kinase 150 U/L (55-170); Glucose 97 mg/dL (74-99); Magnesium 1.7 mg/dL (1.6-2.3); Partial Thromboplastin Time 23.8 sec (22.0-30.0); Sodium 136 mmol/L (137-145); Total Bilirubin 0.4 mg/dL (0.2-1.3); Total Protein 7.7 g/dL (6.3-8.2)
[2019-07-26] MEDS ORDERED: HEPARIN SODIUM,PORCINE 5,000 UNIT/ML 1 ML VIAL IV ONE (22:50)
[2019-07-26] MEDS ORDERED: ASPIRIN 81 MG PO STA (22:50)
[2019-07-26] MEDS ORDERED: HEPARIN SODIUM,PORCINE 5,000 UNIT/ML 1 ML VIAL IV PRN (22:50)
[2019-07-26] MEDS ORDERED: NITROGLYCERIN SL TABS 0.4 MG TAB SUBLINGUAL PRN (22:50)
--- NOTE | 2019-07-26 22:57 | XR ---
EXAMINATION TYPE: XR chest 2V DATE OF EXAM: 07/26/2019 COMPARISON: 05/20/2011 HISTORY: Chest pain TECHNIQUE: Frontal and lateral views of the chest are obtained. FINDINGS: Heart and mediastinum are normal. Lungs are clear. Diaphragm is normal. Bony thorax appear s normal. There are chest leads. IMPRESSION: Normal chest. No change.
[2019-07-26] MEDS ORDERED: HEPARIN SOD,PORK IN 0.45% NACL 25,000 UNIT in 0.45% NACL 1 250ML.BAG IV SCH (23:00)
[2019-07-27 06:56] LABS: Mean Platelet Volume 6.9; Platelet Count 198 k/uL (150-450)
[2019-07-27 08:24] LABS: Cholesterol 184 mg/dL (<200); HDL Cholesterol 65 mg/dL (40-60); Triglycerides 422 mg/dL (<150)
[2019-07-27] MEDS ORDERED: ASPIRIN 81 MG PO SCH (09:00)
[2019-07-27] MEDS ORDERED: METOPROLOL TARTRATE 25 MG TAB PO SCH (09:00)
[2019-07-27] MEDS ORDERED: FENOFIBRATE 160 MG TAB PO SCH (09:00)
[2019-07-27] MEDS ORDERED: ASPIRIN 325 MG TAB PO SCH (09:00)
[2019-07-27 11:54] VITALS: RESP 18; TEMP 98.4
--- NOTE | 2019-07-27 12:31 | P.CRDCN ---
History of Present Illness History of present illness: This is a pleasant 38-year-old -[place] male past medical history significant for hypertension, chronic daily alcohol use, chronic nicotine dependance and regular marijuana use. He states he had an MO 5 yrs ago but is unclear on the details. He does not recall having a stent or heart catheterization. We have been asked to see him in consultation secondary to chest pain. He states yesterday while he was sitting down watching television he developed a pain in the left precordial region described as someone reaching in and squeezing his heart. The episode was brief lasting only a few minutes and subsided on its own with no specific aggravating or alleviating factors. The discomfort was associated with mild shortness of breath. No palpitations, nausea, vomiting, dizziness or diaphoresis. The pain is not respirophasic and not reproducible on exam. He has experienced pain like this in the past and underwent an exercise stress test per his PCP March 2019 that was negative for evidence of stress-induced ischemia with excellent exercise tolerance. He is seen and examined resting comfortably in bed in no acute distress. He denies active chest discomfort. Multiple EKGs obtained in the emergency department and reviewed reveal sinus mechanism, LVH, ST-T changes in the anterior, lateral and inferior leads consistent with early repolarization. Consistent with old EKGs back to 2017. No acute changes. Chest x-ray is negative for an acute cardiopulmonary process. Laboratory data reviewed, WBC 10.5, hemoglobin 15, platelets 198, sodium 136, potassium 4.0, creatinine 1.06, magnesium 1.7, cardiac enzymes negative 3, proBNP 17, triglycerides 422. Current daily cardiac medications include lisinopril 20 mg daily and hydrochlorothiazide 25 mg daily. At the time of my exam: CONSTITUTIONAL: Denies fever. Denies chills. EYES: Denies blurred vision. Denies vision changes. Denies eye pain. EARS, NOSE, MOUTH & THROAT: Denies headache. Denies sore throat. Denies ear pain. CARDIOVASCULAR: Denies chest pain. Denies shortness of breath. Denies orthopnea. Denies PND. Denies palpitations. RESPIRATORY: Denies cough. GASTROINTESTINAL: Denies abdominal pain. Denies diarrhea. Denies constipation. Denies nausea. Denies vomiting. MUSCULOSKELETAL: Denies myalgias. INTEGUMENTARY: Denies pruitis. Denies rash. NEUROLOGIC: Denies numbness. Denies tingling. Denies weakness. PSYCHIATRIC: Denies anxiety. Denies depression. ENDOCRINE: Denies fatigue. Denies weight change. Denies polydipsia. Denies polyurina. GENITOURINARY: Denies burning, hematuria or urgency with micturation. HEMATOLOGIC: Denies history of anemia. Denies bleeding. Blood pressure 135/89 heart rate 77 afebrile maintaining oxygen saturation on room air GENERAL: This is a 38-year-old -[place] male in no apparent distress at the time of my examination. HEENT: Head is atraumatic, normocephalic. Pupils are equal, round. Sclerae anicteric. Conjunctivae are clear. Mucous membranes of the mouth are moist. Neck is supple. There is no jugular venous distention. No carotid bruit is heard. LUNGS: Clear to auscultation no wheezes, rales or rhonchi. No chest wall tenderness is noted on palpation or with deep breathing. HEART: Regular rate and rhythm with murmur at the left sternal border, no rubs or gallops. S1 and S2 heard. ABDOMEN: Soft, nontender. Bowel sounds are heard. No organomegaly noted. EXTREMITIES: No evidence of peripheral edema and no calf tenderness noted. VASCULAR: Radial and dorsalis pedis pulses palpated, no evidence of clubbing. NEUROLOGIC: Patient is awake, alert and oriented x3. ASSESSMENT Chest pain at rest, atypical for angina. An acute event has been ruled out. Hypertension Dyslipidemia Chronic nicotine dependence Daily alcohol use PLAN An acute coronary event has been ruled out. Discontinue heparin infusion. Obtain 2D echocardiogram and doppler study to assess cardiac structure and function. Perform stress echocardiogram secondary to baseline EKG abnormalities, echo imaging preferred. Smoking and alcohol cessation strongly recommended. Thank you kindly for this consultation. Nurse Practitioner note has been reviewed, I agree with a documented findings an d plan of care. Patient was seen and examined. Past Medical History Past Medical History: Hypertension Additional Past Medical History / Comment(s): pericarditis, bowel obstruction History of Any Multi-Drug Resistant Organisms: None Reported Past Surgical History: Bowel Resection, Hernia Repair Past Anesthesia/Blood Transfusion Reactions: No Reported Reaction Past Psychological History: No Psychological Hx Reported Additional Psychological History / Comment(s): Patient lives with his girlfriend and her daughter. Used to work in manufacturing. Utilizes a bicycle for transportation. Positive daily tobacco and alcohol use. Denies injection or recreational drug use. No experience. No extensive travels. Pet cat in the home. Parents are alive and well Smoking Status: Current every day smoker Past Alcohol Use History: Daily, Heavy Past Drug Use History: Marijuana - Past Family History Mother Family Medical History: Cancer, Coronary Artery Disease (CAD), Diabetes Mellitus, Hypertension Father Family Medical History: Coronary Artery Disease (CAD) Medications and Allergies Home Medications Medication Instructions Recorded Confirmed Type Hydrochlorothiazide 25 mg PO DAILY 07/26/19 07/26/19 History Lisinopril 20 mg PO DAILY 07/26/19 07/26/19 History Allergies Allergy/AdvReac Type Severity Reaction Status Date / Time No Known Allergies Allergy Verified 07/26/19 21:13 Physical Exam Vitals: Vital Signs Temp Pulse Pulse Resp BP BP Pulse Ox 07/27/19 07:25 98.2 F 79 16 116/81 99 07/27/19 04:00 98.4 F 75 18 118/78 100 07/27/19 00:00 98 F 80 18 120/83 99 07/26/19 23:00 80 15 112/82 99 07/26/19 22:30 81 16 117/84 99 07/26/19 22:00 90 18 123/89 100 07/26/19 21:05 20 07/26/19 20:56 97.1 F L 70 18 143/98 99 Intake and Output 07/26/19 07/27/19 07/27/19 22:59 06:59 14:59 Intake Total 100 Output Total 400 Balance 100 -400 Intake: Amount of Fluid Infused ( 100 ml) Output: Urine 400 Other: Weight 63.503 kg Results 07/27/19 06:44 07/26/19 21:11 Cardiac Enzymes 07/26/19 07/26/19 07/27/19 Range/Units 21:11 21:11 03:34 AST 45 (17-59) U/L Troponin I <0.012 <0.012 (0.000-0.034) ng/mL 07/27/19 Range/Units 06:44 AST (17-59) U/L Troponin I <0.012 (0.000-0.034) ng/mL Coagulation 07/26/19 07/27/19 Range/Units 21:11 06:44 PT 10.1 (9.0-12.0) sec APTT 23.8 36.5 H (22.0-30.0) sec CBC 07/26/19 07/27/19 Range/Units 21:11 06:44 WBC 10.5 (3.8-10.6) k/uL RBC 4.44 (4.30-5.90) m/uL Hgb 15.0 (13.0-17.5) gm/dL Hct 42.7 (39.0-53.0) % Plt Count 219 198 (150-450) k/uL Comprehensive Metabolic Panel 07/26/19 Range/Units 21:11 Sodium 136 L (137-145) mmol/L Potassium 4.0 (3.5-5.1) mmol/L Chloride 104 (98-107) mmol/L Carbon Dioxide 18 L (22-30) mmol/L BUN 15 (9-20) mg/dL Creatinine 1.06 (0.66-1.25) mg/dL Glucose 97 (74-99) mg/dL Calcium 9.5 (8.4-10.2) mg/dL AST 45 (17-59) U/L ALT 34 (21-72) U/L Alkaline Phosphatase 87 (38-126) U/L Total Protein 7.7 (6.3-8.2) g/dL Albumin 4.5 (3.5-5.0) g/dL Current Medications Generic Name Dose Route Start Last Admin Trade Name Freq PRN Reason Stop Dose Admin Heparin Sodium (Porcine) 0 unit 07/26/19 22:50 Heparin IV Q6HR PRN Low PTT Protocol Heparin Sodium/Sodium Chloride 250 mls @ 7.62 mls/hr 07/26/19 23:00 07/26/19 23:26 25,000 unit/ Sodium Chloride IV 12 units/kg/hr .Q24H LO 7.62 mls/hr Administration Protocol 12 UNITS/KG/HR Metoprolol Tartrate 25 mg 07/27/19 09:00 Lopressor PO BID LO Nitroglycerin 0.4 mg 07/26/19 22:50 Nitrostat SUBLINGUAL Q5M PRN Chest Pain Intake and Output 07/26/19 07/27/19 07/27/19 22:59 06:59 14:59 Intake Total 100 Output Total 400 Balance 100 -400 Intake: Amount of Fluid Infused ( 100 ml) Output: Urine 400 Other: Weight 63.503 kg 07/27/19 06:44 07/26/19 21:11
[2019-07-27 15:54] VITALS: BP 143/94; PULSE 73
--- NOTE | 2019-07-27 16:40 | P.HPIM ---
History of Present Illness 32-year-old male came in for chest pain was admitted to rule out a concurrent syndromes patient does have history of hypertension patient is on a diuretic therapy and SHYANNE inhibitor for that. Patient started having chest pain which a ppears to be noncardiac after smoking marijuana and nicotine. Chest pain has some pleuritic competent moderate severity nonradiating denied any nausea vomiting diaphoresis nonpleuritic not associated with food. Patient chest pain resolved patient underwent stress test in March 2019 that was negative patient is cleared by cardiology to be discharged rule out acute Beck syndromes with the teachers of troponins and EKGs. Review of Systems REVIEW OF SYSTEMS: CONSTITUTIONAL: No fever, no malaise, no fatigue. HEENT: No recent visual problems or hearing problems. Denied any sore throat. CARDIOVASCULAR: No orthopnea, PND, no palpitations, no syncope. PULMONARY: No shortness of breath, no cough, no hemoptysis. GASTROINTESTINAL: No diarrhea, no nausea, no vomiting, no abdominal pain. NEUROLOGICAL: No headaches, no weakness, no numbness. HEMATOLOGICAL: Denies any bleeding or petechiae. GENITOURINARY: Denies any burning micturition, frequency, or urgency. MUSCULOSKELETAL/RHEUMATOLOGICAL: Denies any joint pain, swelling, or any muscle pain. ENDOCRINE: Denies any polyuria or polydipsia. The rest of the 14-point review of systems is negative. Past Medical History Past Medical History: Hypertension Additional Past Medical History / Comment(s): pericarditis, bowel obstruction History of Any Multi-Drug Resistant Organisms: None Reported Past Surgical History: Bowel Resection, Hernia Repair Past Anesthesia/Blood Transfusion Reactions: No Reported Reaction Past Psychological History: No Psychological Hx Reported Additional Psychological History / Comment(s): Patient lives with his girlfriend and her daughter. Used to work in manufacturing. Utilizes a bicycle for transportation. Positive daily tobacco and alcohol use. Denies injection or recreational drug use. No experience. No extensive travels. Pet cat in the home. Parents are alive and well Smoking Status: Current every day smoker Past Alcohol Use History: Daily, Heavy Past Drug Use History: Marijuana - Past Family History Mother Family Medical History: Cancer, Coronary Artery Disease (CAD), Diabetes Mellitus, Hypertension Father Family Medical History: Coronary Artery Disease (CAD) Medications and Allergies Home Medications Medication Instructions Recorded Confirmed Type Hydrochlorothiazide 25 mg PO DAILY 07/26/19 07/26/19 History Lisinopril 20 mg PO DAILY 07/26/19 07/26/19 History Allergies Allergy/AdvReac Type Severity Reaction Status Date / Time No Known Allergies Allergy Verified 07/26/19 21:13 Physical Exam Vitals: Vital Signs Temp Pulse Pulse Resp BP BP BP 07/27/19 15:54 98.4 F 73 143/94 07/27/19 11:53 98.4 F 77 18 135/89 07/27/19 07:25 98.2 F 79 16 116/81 07/27/19 04:00 98.4 F 75 18 118/78 07/27/19 00:00 98 F 80 18 120/83 07/26/19 23:00 80 15 112/82 07/26/19 22:30 81 16 117/84 07/26/19 22:00 90 18 123/89 07/26/19 21:05 20 07/26/19 20:56 97.1 F L 70 18 143/98 Pulse Ox 07/27/19 15:54 99 07/27/19 11:53 100 07/27/19 07:25 99 07/27/19 04:00 100 07/27/19 00:00 99 07/26/19 23:00 99 07/26/19 22:30 99 07/26/19 22:00 100 07/26/19 21:05 07/26/19 20:56 99 Intake and Output 07/27/19 07/27/19 07/27/19 06:59 14:59 22:59 Intake Total 100 Output Total 400 Balance 100 -400 Intake: Amount of Fluid Infused ( 100 ml) Output: Urine 400 Other: Weight 63.503 kg PHYSICAL EXAMINATION: GENERAL: The patient is alert and oriented x3, not in any acute distress. Well developed, well nourished. HEENT: Pupils are round and equally reacting to light. EOMI. No scleral icterus. No conjunctival pallor. Normocephalic, atraumatic. No pharyngeal erythema. No thyromegaly. CARDIOVASCULAR: S1 and S2 present. No murmurs, rubs, or gallops. PULMONARY: Chest is clear to auscultation, no wheezing or crackles. ABDOMEN: Soft, nontender, nondistended, normoactive bowel sounds. No palpable organomegaly. MUSCULOSKELETAL: No joint swelling or deformity. EXTREMITIES: No cyanosis, clubbing, or pedal edema. NEUROLOGICAL: Gross neurological examination did not reveal any focal deficits. SKIN: No rashes. Results CBC & Chem 7: 07/27/19 06:44 07/26/19 21:11 Labs: Abnormal Lab Results - Last 24 Hours (Table) 07/26/19 07/27/19 07/27/19 Range/Units 21:11 06:44 06:44 APTT 36.5 H (22.0-30.0) sec Sodium 136 L (137-145) mmol/L Carbon Dioxide 18 L (22-30) mmol/L Triglycerides 422 H (<150) mg/dL HDL Cholesterol 65 H (40-60) mg/dL Thrombosis Risk Factor Assmnt - Choose All That Apply Any of the Below Risk Factors Present?: Yes Each Factor Represents 1 point: Acute NC Other Risk Factors: No Other congenital or acquired thrombophilia - If yes, enter type in comment: No Thrombosis Risk Factor Assessment Total Risk Factor Score: 1 Thrombosis Risk Factor Assessment Level: Low Risk Assessment and Plan Plan: -Chest pain noncardiac appears to be musculoskeletal resolved ruled out acute concurrent syndromes had a recent stress test area at counseling regarding marijuana use good and uses provided. -Hypertension patient blood pressure is well controlled and patient will be resumed and continued on SHYANNE inhibitor and diuretic therapy -Nicotine dependence and marijuana use: Counseling was provided -Alcohol abuse: Counseling was provided
--- NOTE | 2019-07-27 16:41 | P.DS ---
Providers Date of admission: 07/26/19 22:50 Attending physician: Andrew Barnes Consults: 07/26/19 22:50 Consult Physician Urgent Consulting Provider: Pj Alvarado Consult Reason/Comments: cp Do you want consulting provider notified?: Yes Primary care physician: Nehemiah Bedoya [facility] Course: As mentioned in HPI Patient Condition at Discharge: Undetermined Plan - Discharge Summary Discharge Rx Participant: No New Discharge Prescriptions: No Action Lisinopril 20 mg PO DAILY Hydrochlorothiazide 25 mg PO DAILY Discharge Medication List Hydrochlorothiazide 25 mg PO DAILY 07/26/19 [History] Lisinopril 20 mg PO DAILY 07/26/19 [History] Follow up Appointment(s)/Referral(s): Nehemiah Bedoya DO [Primary Care Provider] - 3 Days Nicole Burton MD [STAFF PHYSICIAN] - 08/12/19 1:15 pm Patient Instructions/Handouts: Chest Pain (DC) Discharge Disposition: HOME SELF-CARE
--- NOTE | 2019-07-27 18:55 | P.STRESS ---
- Stress Test Note Stress Test Results/Findings: Exam Performed: stress echo exercise Exam Date: 07/27/19 Reason for Exam: CHEST PAIN Height: 5 ft 9 in Weight: 63.503 kg Protocol: STRESS ECHO Stage: 3 Duration of Exercise: 10:07 MINUTES Resting Heart Rate: 78 Resting Blood Pressure: 136/100 Maximum Achieved Heart Rate: 182 Maximum Achieved Blood Pressure: 169/91 85% PMHR: 155 100% PMHR: 182 METS: 11.5 Technologist Comment: Stress Test Results/Findings: This is a 38-year-old gentleman was admitted to hospital with chest pain and shortness of breath. Stress data: Baseline EKG showed sinus rhythm with normal VA interval, QRS duration with early repolarization changes. Patient blood pressure at rest is 136/100 with pulse rate of 78. Patient walked on the Dillon protocol for 10 minutes achieving a maximum rate of 182 with blood pressure 161/91. EKGs taken during and after x-rays continued to show some early repolarization changes without any ischemic changes. Echo data: Baseline echo images show normal wall motion and thickening. Exercise echo images showed progressive augmentation of wall motion and thickening in all the segments. Final impression: #1. Negative stress test #2. Negative stress echo
--- NOTE | 2019-07-28 09:08 | ECHOS ---
Stress Test Results/Findings: Exam Performed: stress echo exercise Exam Date: 07/27/19 Reason for Exam: CHEST PAIN Height: 5 ft 9 in Weight: 63.503 kg Protocol: STRESS ECHO Stage: 3 Duration of Exercise: 10:07 MINUTES Resting Heart Rate: 78 Resting Blood Pressure: 136/100 Maximum Achieved Heart Rate: 182 Maximum Achieved Blood Pressure: 169/91 85% PMHR: 155 100% PMHR: 182 METS: 11.5 Technologist Comment: Stress Test Results/Findings: This is a 38-year-old gentleman was admitted to hospital with chest pain and shortness of breath. Stress data: Baseline EKG showed sinus rhythm with normal AL interval, QRS duration with early repolarization changes. Patient blood pressure at rest is 136/100 with pulse rate of 78. Patient walked on the Dillon protocol for 10 minutes achieving a maximum rate of 182 with blood pressure 161/91. EKGs taken during and after x-rays continued to show some early repolarization changes without any ischemic changes. Echo data: Baseline echo images show normal wall motion and thickening. Exercise echo images showed progressive augmentation of wall motion and thickening in all the segments. Final impression: #1. Negative stress test #2. Negative stress echo MTDD
--- NOTE | 2019-08-25 11:27 | ECHOF ---
Referral Reason: MEASUREMENTS -------- HEIGHT: 175.3 cm WEIGHT: 63.5 kg BP: 116/81 RVIDd: 3.0 cm (< 3.3) IVSd: 1.1 cm (0.6 - 1.1) LVIDd: 4.2 cm (3.9 - 5.3) LVPWd: 1.3 cm (0.6 - 1.1) IVSs: 1.3 cm LVIDs: 3.2 cm LVPWs: 1.5 cm LAESV Index (A-L): 19.70 ml/m Ao Diam: 3.3 cm (2.0 - 3.7) AV Cusp: 1.9 cm (1.5 - 2.6) LA Diam: 3.3 cm (2.7 - 3.8) MV EXCURSION: 23.189 mm (> 18.000) MV EF SLOPE: 207 mm/s (70 - 150) EPSS: 0.4 cm MV E Alphonse: 0.49 m/s MV DecT: 190 ms MV A Alphonse: 0.56 m/s MV E/A Ratio: 0.88 RAP: 5.00 mmHg RVSP: 19.85 mmHg FINDINGS -------- Sinus rhythm. This was a technically adequate study. The left ventricular size is normal. There is mild concentric left ventricular hypertrophy. Overa ll left ventricular systolic function is mildly impaired with, an EF between 45 - 50 %. The diastol ic filling pattern is normal for the age of the patient 6.06. The right ventricle is normal in size. LA is midly dilated 29-33ml/m2. The right atrial size is normal. Interatrial and interventricular septum intact. The aortic valve is trileaflet and appears structurally normal. There is no evidence of aortic regu rgitation. There is no evidence of aortic stenosis. Mild mitral regurgitation is present. Mild tricuspid regurgitation present. There is no evidence of pulmonary hypertension. The right v entricular systolic pressure, as measured by Doppler, is 19.85mmHg. There is no pulmonic regurgitation present. The aortic root size is normal. Normal inferior vena cava with normal inspiratory collapse consistent with estimated right atrial pre ssure of 5 mmHg. There is no pericardial effusion. CONCLUSIONS -------- 1. Sinus rhythm. 2. This was a technically adequate study. 3. The left ventricular size is normal. 4. There is mild concentric left ventricular hypertrophy. 5. Overall left ventricular systolic function is mildly impaired with, an EF between 45 - 50 %. 6. The diastolic filling pattern is normal for the age of the patient 6.06 7. The right ventricle is normal in size. 8. LA is midly dilated 29-33ml/m2. 9. The right atrial size is normal. 10. Interatrial and interventricular septum intact. 11. The aortic valve is trileaflet and appears structurally normal. 12. There is no evidence of aortic regurgitation. 13. There is no evidence of aortic stenosis. 14. Mild mitral regurgitation is present. 15. Mild tricuspid regurgitation present. 16. There is no evidence of pulmonary hypertension. 17. The right ventricular systolic pressure, as measured by Doppler, is 19.85mmHg. 18. There is no pulmonic regurgitation present. 19. The aortic root size is normal. 20. Normal inferior vena cava with normal inspiratory collapse consistent with estimated right atrial pressure of 5 mmHg. 21. There is no pericardial effusion. [employer]: Gely Diaz RDCS
== END 2019-07-27 17:18 | disposition home or self-care (01) ==
LOC: EC 20:55 → 1SOBS 22:50
PROVIDERS: ADMIT Hospitalist; ATTEND Hospitalist
DX: R07.89 Other chest pain (principal); R94.31 Abnormal electrocardiogram [ECG] [EKG]; R06.00 Dyspnea, unspecified; I10 Essential (primary) hypertension; E78.5 Hyperlipidemia, unspecified; F12.90 Cannabis use, unspecified, uncomplicated; F17.200 Nicotine dependence, unspecified, uncomplicated; F10.10 Alcohol abuse, uncomplicated; Z79.899 Other long term (current) drug therapy; Z87.19 Personal history of other diseases of the digestive system; Z86.79 Personal history of other diseases of the circulatory system; I25.2 Old myocardial infarction; Z83.3 Family history of diabetes mellitus; Z80.9 Family history of malignant neoplasm, unspecified; Z82.49 Family history of ischemic heart disease and other diseases of the circulatory system
CPT/HCPCS: 93005 ×2; 96366; 96376; 96361; 96365; 99291; 36415; 93306; 93351; 83880; 80061; 80053; 82550; 83690; 83735; 84484 ×2; 85025; 85049; 85610; 85730 ×2; 71046; G0378 ×2; J1644 ×2

== ENCOUNTER → 2020-07-07 | Outpatient (CLI) | payer OTHER ==
[2020-07-07 16:46] LABS: HCT 48.5 % (39.0-53.0); HGB 16.3 gm/dL (13.0-17.5); MCH 32.5 pg (25.0-35.0); MCHC 33.5 g/dL (31.0-37.0); MCV 96.9 fL (80.0-100.0); Mean Platelet Volume 7.8; Platelet Count 185 k/uL (150-450); RDW 13.3 % (11.5-15.5); WBC 8.6 k/uL (3.8-10.6)
== END | disposition home or self-care (01) ==
LOC: LABPAT 16:24
PROVIDERS: ATTEND Surgery Plastic and Reconstructive Surgery
DX: Z01.818 Encounter for other preprocedural examination (principal); D64.9 Anemia, unspecified
CPT/HCPCS: 36415; 85027

== ENCOUNTER 2020-07-10 07:14 | Day surgery (SDC) | payer OTHER ==
--- NOTE | 2020-07-09 15:56 | P.GSHP ---
History of Present Illness H&P Date: 07/10/20 CHIEF COMPLAINT: Ventral hernia HISTORY OF PRESENT ILLNESS: The patient is a 39-year-old male who presents with a history of swelling and pain along the abdomen from a hernia. Now he presents for surgical intervention. PAST MEDICAL HISTORY: Please see list. PAST SURGICAL HISTORY: Please see list. MEDICATIONS: Please see list. ALLERGIES: Please see list. SOCIAL HISTORY: Please see list. FAMILY HISTORY: No reports of Crohn disease or ulcerative colitis. REVIEW OF ORGAN SYSTEMS: CONSTITUTIONAL: No reports of fevers or chills. PHYSICAL EXAM: VITAL SIGNS: Stable GENERAL: Well-developed pleasant male in no acute distress. HEENT: No scleral icterus. Extraocular movements grossly intact. Moist buccal mucosa. NECK: Supple without lymphadenopathy. CHEST: Unlabored respirations. Equal bilateral excursions. CARDIOVASCULAR: Regular rate and rhythm. Distal 2+ pulses. ABDOMEN: Soft, nondistended. Palpable defect of the abdomen. No peritoneal signs. MUSCULOSKELETAL: No clubbing, cyanosis, or edema. ASSESSMENT: 1. Ventral hernia PLAN: 1. Recommend proceeding with robotic ventral hernia repair with mesh. 2. Benefits and risks of surgical intervention was discussed including possibility of open technique. 3. DVT prophylaxis. 4. Antibiotic prophylaxis. Past Medical History Past Medical History: Hypertension Additional Past Medical History / Comment(s): pericarditis, bowel obstruction History of Any Multi-Drug Resistant Organisms: None Reported Past Surgical History: Bowel Resection, Hernia Repair Past Anesthesia/Blood Transfusion Reactions: No Reported Reaction Smoking Status: Current every day smoker - Past Family History Mother Family Medical History: Cancer, Coronary Artery Disease (CAD), Diabetes Mellitus, Hypertension Father Family Medical History: Coronary Artery Disease (CAD) Medications and Allergies Home Medications Medication Instructions Recorded Confirmed Type hydroCHLOROthiazide 25 mg PO DAILY 07/26/19 07/26/19 History lisinopriL 20 mg PO DAILY 07/26/19 07/26/19 History Allergies Allergy/AdvReac Type Severity Reaction Status Date / Time lisinopril Allergy Rash/Hives Verified 07/06/20 11:44
[~2020-07-10 07:14] MED LIST: ACETAMINOPHEN TAB 500 MG TAB PO STA; DEXAMETHASONE SOD PHOSPHATE 10 MG/ML 1 ML VIAL IV ONE; GABAPENTIN 300 MG CAP PO STA; HEPARIN SODIUM,PORCINE 5,000 UNIT/ML 1 ML VIAL SQ ONE; HYDROmorphone 0.5 MG/0.5 ML SYRINGE IVP PRN; LACTATED RINGERS 1,000 ML IV SCH; ONDANSETRON 4 MG/2 ML VIAL IVP ONE; SCOPOLAMINE 1.5MG/72HR PATCH TRANSDERM ONE; TAMSULOSIN 0.4 MG CAP.ER.24H PO STA
[2020-07-10 08:11] LABS: ALT 37 U/L (4-49); AST 79 U/L (17-59); African American GFR (CKD) >90 (>60 ml/min/1.73 sqM); Albumin 4.8 g/dL (3.5-5.0); Alkaline Phosphatase 80 U/L (38-126); Anion Gap 9 mmol/L; Blood Urea Nitrogen 10 mg/dL (9-20); Calcium 9.1 mg/dL (8.4-10.2); Carbon Dioxide 28 mmol/L (22-30); Chloride 105 mmol/L (98-107); Glucose 101 mg/dL (74-99); Non-African American GFR(CKD) >90 (>60 ml/min/1.73 sqM); Sodium 142 mmol/L (137-145); Total Bilirubin 1.1 mg/dL (0.2-1.3)
[2020-07-10 08:28] LABS: Potassium 4.7 mmol/L (3.5-5.1)
[2020-07-10] MEDS ORDERED: MIDAZOLAM 2 MG/2 ML VIAL IV ONE (08:29)
[2020-07-10] MEDS ORDERED: fentaNYL (PF) 50 MCG/ML 2 ML AMP IV ONE (08:29)
--- NOTE | 2020-07-10 08:42 | P.ANPRN ---
Procedure Note - Anesthesia - Nerve Block Performed Bilateral Transversus Abdominis Single Time Out Performed: Yes Date of Procedure: 07/10/20 Procedure Start Time: Procedure Stop Time: : Indication: Acute Post-Operative Pain, Requested by Surgeon Sedation Type: Sedate with meaningful contact maintained Position: Supine Catheter: None Needle Types: Pajunk Needle Gauge: 21 Ultrasound used to visualize needle placement: Yes Ultrasound used to observe medication spread: Yes Injectate: 0.5% Ropivacaine (see comment for volume) (30 ml) Blood Aspirated: No Pain Paresthesia on Injection Noted: No Resistance on Injection: Normal Image Stored and Saved: Yes Events: Uneventful and Well Tolerated
[2020-07-10] MEDS ORDERED: ROCURONIUM 10 MG/ML (5 ML VIAL) IV ONE (08:59)
[2020-07-10] MEDS ORDERED: GLYCOPYRROLATE 0.2 MG/ML 2 ML VIAL ONE (08:59)
[2020-07-10] MEDS ORDERED: fentaNYL (PF) 50 MCG/ML 2 ML AMP ONE (08:59)
[2020-07-10] MEDS ORDERED: NEOSTIGMINE 1 MG/ML 10 ML VIAL ONE (08:59)
[2020-07-10] MEDS ORDERED: HYDROmorphone (PF) 1 MG/ML ONE (08:59)
[2020-07-10] MEDS ORDERED: LIDOCAINE 1% INJ 10MG/ML (20 ML MDV) ONE (08:59)
[2020-07-10] MEDS ORDERED: SUCCINYLCHOLINE CHLORIDE 100 MG/5 ML SYR IV ONE (08:59)
[2020-07-10] MEDS ORDERED: hydrALAZINE HCL 20 MG/ML 1 ML VIAL ONE (08:59)
[2020-07-10] MEDS ORDERED: MIDAZOLAM 2 MG/2 ML VIAL ONE (08:59)
[2020-07-10] MEDS ORDERED: PROPOFOL 10 MG/ML 20 ML VIAL IV ONE (08:59)
[2020-07-10] MEDS ORDERED: LIDOCAINE 1%-EPI 1:100,000 20 ML VIAL SQ ONE (09:26)
[2020-07-10 10:20] VITALS: TEMP 97.5
[2020-07-10 10:25] VITALS: RESP 16
[2020-07-10] MEDS: KETOROLAC 15 MG/ML 1 ML VIAL IVP SCH ×2 (11:12→12:23)
[2020-07-10] MEDS ORDERED: KETOROLAC 15 MG/ML 1 ML VIAL IVP ONE (11:13)
[2020-07-10] MEDS ORDERED: LACTATED RINGERS 1,000 ML IV ONE (11:14)
--- NOTE | 2020-07-10 11:16 | P.OP ---
Date of Procedure: 07/10/20 Description of Procedure: SURGEON: MICHELLE LINN MD IUSS ANALYST: None. PREOPERATIVE DIAGNOSES: 1. Left lower quadrant abdominal pain 2. History of bowel obstruction 3. History of gastroschisis and abdominal wall hernia repair as a child 4. Hypertensive heart disease 5. Tobacco use POSTOPERATIVE DIAGNOSES: 1. Severe peritoneal adhesions with frozen abdomen 2. Left lower quadrant abdominal pain 3. History of bowel obstruction 4. History of gastroschisis and abdominal wall hernia repair as a child 5. Hypertensive heart disease 6. Tobacco use PROCEDURES PERFORMED: 1. Aborted robot-assisted incisional hernia repair with lysis of adhesions 2. Diagnostic laparoscopy ANESTHESIA: General, local, abdominal wall block ESTIMATED BLOOD LOSS: 5 mL. SPECIMENS REMOVED: None. COMPLICATIONS: None. OPERATIVE FINDINGS: 1. Complete frozen abdomen from severe peritoneal adhesions as a result, procedure aborted INDICATIONS: The patient is a 39-year-old male with history of multiple abdominal surgeries a child including gastroschisis with abdominal wall hernia repair. He presented with abdominal pain concerning for peritoneal lesions and occult incisional hernia. Given the severity of his symptoms, he elected for surgical intervention. Benefits and risks, including possibility of open technique were described at length. Informed consent was obtained. DESCRIPTION OF PROCEDURE: Patient was brought to the operating room, laid in supine position. After general induction, the abdomen was prepped and draped in standard sterile fashion. Prior to incision, a timeout protocol was confirmed with surgical team regarding patient's name including procedure to be performed. Preoperative medications including antibiotics were given. Additionally, bilateral SCDs including subcutaneous DVT prophylaxis was administered. A 5 mm laparoscopic trocar entry was performed at the left upper quadrant subcostal after anesthetizing the skin with local anesthetic. Careful entry with diagnostic laparoscopy into the abdomen demonstrated peritoneal adhesions too dense to advance the trocar and scope. A different entry sight was proposed. A separate 5 mm trocar entry along the right upper quadrant was performed away from any prior incisions. Despite this attempt, severe dense adhesions were also identified prohibiting progression of the case. Findings were consistent with frozen abdomen. The procedure was aborted. All instruments and pneumoperitoneum were evacuated from the abdominal cavity. Local anesthetic was infiltrated in all wounds for postop analgesia. Dermabond was applied to the skin after reapproximating the incisions with 4-0 Monocryl as described. At the end of the procedure, needle, sponge, and instrument count was verified correct by quality control technician. The patient had tolerated the procedure well, was taken to the postanesthesia care unit in stable condition. Intraoperative abdominal films were described with the patient's family where due to features of frozen abdomen, only emergent exploratory laparotomy is advised. Elective surgical exploration in frozen abdomen is contraindicated. Plan - Discharge Summary Discharge Rx Participant: Yes New Discharge Prescriptions: New Acetaminophen Tab [Tylenol Tab] 500 mg PO Q6H PRN #30 tablet PRN Reason: Pain Continue hydroCHLOROthiazide 25 mg PO DAILY amLODIPine [Norvasc] 5 mg PO DAILY Discharge Medication List hydroCHLOROthiazide 25 mg PO DAILY 07/26/19 [History] Acetaminophen Tab [Tylenol Tab] 500 mg PO Q6H PRN #30 tablet 07/10/20 [Rx] amLODIPine [Norvasc] 5 mg PO DAILY 07/10/20 [History] Follow up Appointment(s)/Referral(s): Michelle Linn MD [STAFF PHYSICIAN] - 07/18/20 (YOU WILL NEED TO CALL TO SCHEDULE YOUR FOLLOW UP APPOINTMENT) Patient Instructions/Handouts: *Surgery [facility] - (Anesthesia) Discharge Instructions Outpatient Surgery, Exploratory Laparoscopy (DC) Discharge Disposition: HOME SELF-CARE
[2020-07-10 12:34] VITALS: BP 130/86; PULSE 90
== END 2020-07-10 12:10 | disposition home or self-care (01) ==
LOC: OR 07:14
PROVIDERS: ATTEND Surgery Plastic and Reconstructive Surgery
DX: K66.0 Peritoneal adhesions (postprocedural) (postinfection) (principal); K43.2 Incisional hernia without obstruction or gangrene; Z87.738 Personal history of other specified (corrected) congenital malformations of digestive system; I10 Essential (primary) hypertension; F17.210 Nicotine dependence, cigarettes, uncomplicated; Z88.8 Allergy status to other drugs, medicaments and biological substances; Z79.899 Other long term (current) drug therapy; Z90.49 Acquired absence of other specified parts of digestive tract; Z98.890 Other specified postprocedural states; Z82.49 Family history of ischemic heart disease and other diseases of the circulatory system; Z83.3 Family history of diabetes mellitus; Z80.9 Family history of malignant neoplasm, unspecified
CPT/HCPCS: 64488; 80053; 49320; J2250; J0360; J1644; J1100; J2710; J0690; J2405; J2001; J3010; J1170 ×2; J1885; J0330; J2704

== ENCOUNTER → 2020-07-27 | Outpatient (CLI) | payer OTHER ==
--- NOTE | 2020-07-27 14:07 | FL ---
EXAMINATION TYPE: FL UGI air w small bowel DATE OF EXAM: 07/27/2020 COMPARISON: Correlation CT 04/27/2017. HISTORY: 39-year-old male Z87.19, history of bowel obstruction. Intermittent left-sided pain and swel ling. Recent exploratory surgery on June 2020 showing multiple adhesions and a frozen abdomen. R [facility] history of gastroschisis repaired as an . Total fluoroscopy time: 2 minutes 51 seconds. Total images: 65. TECHNIQUE: A double contrast UGI study is performed with small bowel follow through. FINDINGS: Human Resources Technician image of the abdomen shows nonobstructive bowel gas pattern with scattered mild to moderate sto ol in pelvic phlebolith. The esophagus shows normal motility and emptying into the stomach. There is a small sliding hiatal hernia and moderate to severe gastroesophageal reflux with Valsalva m aneuver. The stomach shows normal distensibility. Mild fold thickening and small foci of contrast accumulation scattered throughout. No filling defect is identified. The duodenal bulb and sweep are unremarkable. The small bowel study shows normal transit to the colon at 2 hours. A few of the left-sided small bow el loops are patulous measuring up to 3.4 cm but with normal mucosal fold pattern throughout the smal l bowel. Spot compression shows no evidence of any stricture or filling defect. The region of the ter vasquez ileum is unremarkable. IMPRESSION: 1. Small sliding hiatal hernia and moderate to severe gastroesophageal reflux elicited with Valsalva maneuver. 2. Mild diffuse fold thickening throughout the stomach, possible gastritis. In addition, there are t iny foci of contrast pooling scattered throughout the stomach. Consider direct visualization to exclu de small ulcers. 3. Normal small bowel transit time of 2 hours. A few of the left-sided jejunal loops are borderline t o mildly dilated measuring up to 3.4 cm. No evidence for bowel obstruction, stricture, or mucosal abn ormality.
== END | disposition home or self-care (01) ==
LOC: RADFLMAIN 07:49
PROVIDERS: ATTEND Surgery Plastic and Reconstructive Surgery
DX: K44.9 Diaphragmatic hernia without obstruction or gangrene (principal); K59.89 Other specified functional intestinal disorders; K21.9 Gastro-esophageal reflux disease without esophagitis; K31.89 Other diseases of stomach and duodenum; Z87.19 Personal history of other diseases of the digestive system
CPT/HCPCS: 74240; 74248

== ENCOUNTER → 2020-09-21 | Outpatient (CLI) | payer OTHER ==
--- NOTE | 2020-09-21 16:06 | XR ---
EXAMINATION TYPE: XR thoracic spine complete DATE OF EXAM: 09/21/2020 COMPARISON: 04/08/2017 HISTORY: Thoracic pain TECHNIQUE: Three-view thoracic spine FINDINGS: There are 12 thoracic type vertebral bodies. The pedicles are intact. There is some side be nding towards the left within the upper thoracic level. Disc heights appear preserved. IMPRESSION: 1. No acute osseous abnormality thoracic spine. 2. No significant interval change
== END | disposition home or self-care (01) ==
LOC: RADXRMAIN 10:21
PROVIDERS: ATTEND Nurse Practitioner Family
DX: M54.6 Pain in thoracic spine (principal)
CPT/HCPCS: 72072

== ENCOUNTER → 2020-12-25 | Outpatient (CLI) | payer OTHER ==
--- NOTE | 2020-12-25 23:19 | MR ---
EXAMINATION TYPE: MR cervical spine wo con DATE OF EXAM: 12/25/2020 COMPARISON: None HISTORY: Neck pain, headaches, left arm weakness Multiplanar multiecho imaging of the cervical spine was performed without contrast. Cervical vertebra have normal alignment. There is mild spurring of the endplates in the mid and lower cervical spine. There is small posterior disc herniation at C4-5. Spinal canal measures 8.5 mm which is the narrowest point. There is a small posterior disc bulge at C6-7. Cervical spinal cord shows no edema. Brainstem is intact. There is no evidence of cervical spinal cord mass. The posterior elements are intact. There is mild cervical hypertrophic facet arthropathy. There is no cervical spine compression fracture. IMPRESSION: Multilevel spondylotic changes. Small posterior disc herniations at C4-5 and C6-7 without any signifi cant spinal stenosis. No fracture.
== END ==
LOC: RADMRIMAIN 19:50
PROVIDERS: ATTEND Orthopaedic Surgery
DX: M50.223 Other cervical disc displacement at C6-C7 level (principal); M47.812 Spondylosis without myelopathy or radiculopathy, cervical region
CPT/HCPCS: 72141

== ENCOUNTER → 2021-02-12 | Outpatient (CLI) | payer OTHER ==
[2021-02-12 14:17] VITALS: BP 128/90; PULSE 105; RESP 18; TEMP 98.7
--- NOTE | 2021-02-12 14:27 | P.PAINCN ---
History of Present Illness - Reason for Consult Consult date: 02/12/21 - History of Present Illness This is 40 years old male with a chronic history of severe neck pain with radiation to the upper extremity and into the shoulder blade area, did 6 months ago and he denies any initiating event, but he reported that the patient used to do a lot of lifting , and repetitive movement, he reported that the intensity of the pain increased over time and currently is constant and increases with any n fredy movement, interfer with the quality of life, he denies any fever or night sweats. Denies any change in bowel movement or urination, but he feels some weakness in his upper extremity, also patient complaining of some occasional numbness and tingling sensation in the upper extremity bilaterally Past Medical History Past Medical History: Chest Pain / Angina, Hypertension Additional Past Medical History / Comment(s): pericarditis, bowel obstruction History of Any Multi-Drug Resistant Organisms: None Reported Past Surgical History: Bowel Resection Additional Past Surgical History / Comment(s): aborted hernia repair, laproscopy 06/2020, Past Anesthesia/Blood Transfusion Reactions: No Reported Reaction Past Psychological History: No Psychological Hx Reported Additional Psychological History / Comment(s): Patient lives with his girlfriend and her daughter. Used to work in manufacturing. Utilizes a bicycle for transportation. Positive daily tobacco and alcohol use. Denies injection or recreational drug use. No experience. No extensive travels. Pet cat in the home. Parents are alive and well Smoking Status: Current every day smoker Past Alcohol Use History: Occasional Additional Past Alcohol Use History / Comment(s): SMOKES 1 PPD SINCE AGE 15 Past Drug Use History: Marijuana Additional Drug Use History / Comment(s): USES MARIJUANA DAILY-INSTRUCTED TO REFRAIN FROM USE FOR AT LEAST 24 HOURS PRIOR TO PROCEDURE - Past Family History Mother Family Medical History: Cancer, Coronary Artery Disease (CAD), Diabetes Mellitus, Hypertension Father Family Medical History: Coronary Artery Disease (CAD) Medications and Allergies Home Medications Medication Instructions Recorded Confirmed Type hydroCHLOROthiazide 25 mg PO DAILY 07/26/19 02/09/21 History Acetaminophen Tab [Tylenol Tab] 500 mg PO Q6H PRN #30 tablet 07/10/20 02/09/21 Rx amLODIPine [Norvasc] 5 mg PO DAILY 07/10/20 02/09/21 History Naproxen Sodium [Aleve] 220 mg PO BID 02/09/21 02/09/21 History Allergies Allergy/AdvReac Type Severity Reaction Status Date / Time lisinopril Allergy Rash/Hives Verified 02/09/21 11:41 Physical Exam Vitals: Vital Signs Temp Pulse Resp BP Pulse Ox 02/12/21 14:08 98.7 F 105 H 18 128/90 97 Physical Examinations : -Constitutiona : Cooperative , not in acute distress . -HEENT : nech : supple , no Lymphadenopathy , normal thyroid size . : eyes : no ptosis , no icterus, no photophobia . - neurologic : Cranial nerve II to XII intact , no focal neurological deffecit . -psychatric : alert , oriented X 3 , appropriate affect , intact judgment and insight . -Lymphatic : no Lymphadenopathy . - musculoskeltal : Cervical Spine motor stregnth in the deltoid and biceps, normal right side , normal Left side motor stregnth biceps and the wrist extensors normal right side ,normal left side . motor stregnth in the triceps muscle . normal Right side , normal Left side deep tendon reflexes normal at the biceps , normal at Brachioradialis , normal at triceps. cervical facet loading test: Positive Bilaterally Spurling test= positive Right , positive left. Neck distraction test= positive Right , positive left. Asad sign= positive right, positive left . Lumber spine moter stegnth lower extremities ,thigh and legs 5/5 Right side , 5/5 Left side Results Comments: Number of the cervical spine multilevel cervical spondylosis with facet arthropathy and multilevel cervical disc disease Assessment and Plan Plan: Assessment and plan=1-cervical spondylosis with cervical facet arthropathy without myelopathy. 2-cervical degenerative disc disease. Patient could benefit from bilateral cervical medial branch block C4, C5 ,C6 and possible RFA Time with Patient: Greater than 30 PQRS Measure Charge Sheet Measure #130: Documentation of Current Meds in Medical Chart: Patient's medications documented in chart Measure #226: Tobacco Use: Screen & Cessation Intervention: Pt screened for to bacco use AND intervention given Measure #111: Pneumonia Vaccination: Pneumococcal vaccine NOT administered or previously given Measure #47: Advance Care Plan: Advance care planning discussed & documented, pt chose/unable to give Measure #412: Opioid Treatment Agreement: No documentation of signed opioid treatment agreement Measure #408: Opioid Therapy Follow-up Evaluation: Patient had NO f/u eval minimum every 3 months during opioid therapy Measure #317: Preventitive Care & Scrn High Bld Press & F/U: Normal blood pressure, f/u not required Measure #128: Body Mass Index (BMI) Screening & Follow-up: BMI documented within normal parameters Measure #131: Pain Assessment & Follow-up: Pain positive & plan documented, Follow-up scheduled Measure #431: Unhealthy Alcohol Use Preventative Care & Scrn: Patient not identified as an unhealthy alcohol user PQRS Narrative: Smoking Status Current every day smoker Blood Pressure 128/90 Pain Intensity [Neck] 7 Scale Used Numeric (1 - 10) Hx Alcohol Use (MH) Yes Home Medications: Ambulatory Orders hydroCHLOROthiazide 25 mg PO DAILY 07/26/19 Acetaminophen Tab [Tylenol Tab] 500 mg PO Q6H PRN #30 tablet 07/10/20 amLODIPine [Norvasc] 5 mg PO DAILY 07/10/20 Naproxen Sodium [Aleve] 220 mg PO BID 02/09/21
== END ==
LOC: PNWHC3 13:36
PROVIDERS: ATTEND Specialist
DX: M47.812 Spondylosis without myelopathy or radiculopathy, cervical region (principal); M50.30 Other cervical disc degeneration, unspecified cervical region; I10 Essential (primary) hypertension; F17.210 Nicotine dependence, cigarettes, uncomplicated
CPT/HCPCS: 99211

== ENCOUNTER 2021-03-09 09:22 | Day surgery (SDC) | payer OTHER ==
[2021-03-07 15:50] VITALS: BMI 21.4
[~2021-03-09 09:22] MED LIST changes: -ACETAMINOPHEN TAB 500 MG TAB PO STA; -DEXAMETHASONE SOD PHOSPHATE 10 MG/ML 1 ML VIAL IV ONE; -GABAPENTIN 300 MG CAP PO STA; -HEPARIN SODIUM,PORCINE 5,000 UNIT/ML 1 ML VIAL SQ ONE; -HYDROmorphone 0.5 MG/0.5 ML SYRINGE IVP PRN; -ONDANSETRON 4 MG/2 ML VIAL IVP ONE; -SCOPOLAMINE 1.5MG/72HR PATCH TRANSDERM ONE; -TAMSULOSIN 0.4 MG CAP.ER.24H PO STA
[2021-03-09 09:45] VITALS: TEMP 98.5
[2021-03-09] MEDS ORDERED: ROPIVACAINE 5MG/ML 20ML VIAL ONE (10:40)
[2021-03-09] MEDS ORDERED: methylPREDNISolone ACETATE 40 MG/ML 1 ML VIAL ONE (10:40)
[2021-03-09] MEDS ORDERED: MIDAZOLAM 2 MG/2 ML VIAL ONE (10:40)
[2021-03-09] MEDS ORDERED: fentaNYL (PF) 50 MCG/ML 2 ML AMP ONE (10:40)
--- NOTE | 2021-03-09 11:00 | P.PCN ---
Date of Procedure: 03/09/21 Procedure(s) Performed: PREOPERATIVE DIAGNOSIS: Cervical Spondylosis with Facet Arthropathy.without myelopathy. POSTOPERATIVE DIAGNOSIS: Cervical Spondylosis Facet Arthropathy. Without myelopathy. PROCEDURES: Diagnostic bilateral C4 , C5 , and C6 medial branch blocks, with fluoroscopic guidance (fluoroscopy images available in radiology department ) ( to target the facet joint at C4- 5 , C5- 6 ) ANESTHESIA:monitered anesthesia care as per anesthesia department. EBL: Minimal PROCEDURE INDICATION: The patient with neck pain secondary to cervical arthropathy unresponsive to more conservative treatments. PROCEDURE DESCRIPTION / TECHNIQUE: The patient was seen and identified in the preoperative area. Risks, benefits, complications, and alternatives were discussed with the patient, the patient agreed to proceed with the procedure and signed the consent. IV was started. Vital signs remained stable throughout the procedure. Patient was taken to the OR and time out was completed. The patient was placed in the prone position on the procedure table. A pillow was placed under the patients chest to increase the cervical interlaminar space. The cervical area was prepped and draped in the usual sterile fashion. Critical pause was taken. Vital signs were closely monitored during the procedure. Conscious sedation was used during the procedure to decrease patients anxiety. Using cross-table lateral fluoroscopy, the centroid of the trapezoid of right C4 , C5 and C6, was identified, marked, and localized with 1% lidocaine 1 ml at each level for skin and Sub Q infiltrations . Subsequently, a 25 G 3 spinal needle was advanced guided by fluoroscopy to the centroid of the trapezoid of Right C4 , C5, C6 . [place] tip position was confirmed at the centroid of the trapezoids of Right C4 , C5 ,C6 with anteroposterior fluoroscopy. Subsequently, 1.5 ml of preservative-free Ropivacaine 0.5% mixed with Depo- Medrol 20 mg and half ml of the mixture was injected after negative aspiration for blood and CSF. [place] was then removed intact the same procedure was repeated at the left , C4 , C5 , and C6 levels. COMPLICATIONS: No acute complications. DISPOSITION / PLANS: The patient was placed in a supine position and transferred to the recovery area in a stable condition for observation and was discharged from the recovery room after meeting discharge criteria. Home discharge instructions given to the patient by the staff. The patient was reexamined prior to discharge. The patient will schedule a follow up in the clinic in 2-4 weeks.
[2021-03-09] MEDS ORDERED: LACTATED RINGERS 1,000 ML IV ONE (11:01)
[2021-03-09 11:32] VITALS: BP 113/77; PULSE 73; RESP 16
--- NOTE | 2021-03-09 13:33 | FL ---
Fluoroscopy HISTORY: Pain 11 seconds fluoroscopy time supplied to the referring clinician. 2 intraoperative C-arm images docum ent the procedure. See dictated report from anesthesia.
== END 2021-03-09 11:35 | disposition home or self-care (01) ==
LOC: ORPAIN 09:22
PROVIDERS: ATTEND Specialist
DX: M47.812 Spondylosis without myelopathy or radiculopathy, cervical region (principal); Z88.8 Allergy status to other drugs, medicaments and biological substances; I10 Essential (primary) hypertension; Z79.1 Long term (current) use of non-steroidal anti-inflammatories (NSAID); Z79.899 Other long term (current) drug therapy
CPT/HCPCS: 64490; 64491; J2250; J1030; J3010; J2795

== ENCOUNTER 2021-04-13 08:34 | Day surgery (SDC) | payer OTHER ==
[2021-04-11 13:21] VITALS: BMI 20.5
[2021-04-13 08:54] VITALS: TEMP 973
[2021-04-13] MEDS ORDERED: LACTATED RINGERS 1,000 ML IV ONE (09:05)
[2021-04-13] MEDS ORDERED: ROPIVACAINE 5MG/ML 20ML VIAL ONE (09:39)
[2021-04-13] MEDS ORDERED: DEXAMETHASONE SOD PHOSPHATE 10 MG/ML 1 ML VIAL ONE (09:39)
[2021-04-13] MEDS ORDERED: IOPAMIDOL M200 10 ML VIAL ONE (09:39)
[2021-04-13] MEDS ORDERED: fentaNYL (PF) 50 MCG/ML 2 ML AMP ONE (09:40)
[2021-04-13] MEDS ORDERED: MIDAZOLAM 2 MG/2 ML VIAL ONE (09:40)
--- NOTE | 2021-04-13 09:57 | P.PCN ---
Date of Procedure: 04/13/21 Description of Procedure: PREOPERATIVE DIAGNOSIS: Cervical Spondylosis with Facet Arthropathy.without myelopathy. POSTOPERATIVE DIAGNOSIS: Cervical Spondylosis Facet Arthropathy. Without myelopathy. PROCEDURES: Diagnostic bilateral C4 , C5 , and C6 medial branch blocks, with fluoroscopic guidance (fluoroscopy images available in radiology department ) ( to target the facet joint at C4- 5 , C5- 6 ) #2 ANESTHESIA:monitered anesthesia care as per anesthesia department. EBL: Minimal PROCEDURE INDICATION: The patient with neck pain secondary to cervical arthropathy unresponsive to more conservative treatments. PROCEDURE DESCRIPTION / TECHNIQUE: The patient was seen and identified in the preoperative area. Risks, benefits, complications, and alternatives were discussed with the patient, the patient agreed to proceed with the procedure and signed the consent. IV was started. Vital signs remained stable throughout the procedure. Patient was taken to the OR and time out was completed. The patient was placed in the prone position on the procedure table. A pillow was placed under the patients chest to increase the cervical interlaminar space. The cervical area was prepped and draped in the usual sterile fashion. Critical pause was taken. Vital signs were closely monitored during the procedure. Conscious sedation was used during the procedure to decrease patients anxiety. Using cross-table lateral fluoroscopy, the centroid of the trapezoid of right C4 , C5 and C6, was identified, marked, and localized with 1% lidocaine 1 ml at each level for skin and Sub Q infiltrations . Subsequently, a 25 G 3 spinal needle was advanced guided by fluoroscopy to the centroid of the trapezoid of Right C4 , C5, C6 . [place] tip position was confirmed at the centroid of the trapezoids of Right C4 , C5 ,C6 with anteroposterior fluoroscopy. Subsequently, 1.5 ml of preservative-free Ropivacaine 0.5% mixed with Depo- Medrol 20 mg and half ml of the mixture was injected after negative aspiration for blood and CSF. [place] was then removed intact the same procedure was repeated at the left , C4 , C5 , and C6 levels. COMPLICATIONS: No acute complications. DISPOSITION / PLANS: The patient was placed in a supine position and transferred to the recovery area in a stable condition for observation and was discharged from the recovery room after meeting discharge criteria. Home discharge instructions given to the patient by the staff. The patient was reexamined prior to discharge. The patient will schedule a follow up in the clinic in 2-4 weeks.
[2021-04-13] MEDS ORDERED: IV FLUID CONTINUATION 1,000 ML IV ONE (10:02)
[2021-04-13 10:05] VITALS: RESP 16
[2021-04-13 10:24] VITALS: BP 113/76; PULSE 79
--- NOTE | 2021-04-13 16:10 | FL ---
Fluoroscopy HISTORY: Pain 19 seconds fluoroscopy time supplied to the referring clinician. 6 intraoperative C-arm images docum ent the procedure. See dictated report from anesthesia.
== END 2021-04-13 10:41 | disposition home or self-care (01) ==
LOC: ORPAIN 08:34
PROVIDERS: ATTEND Anesthesiology
DX: M47.812 Spondylosis without myelopathy or radiculopathy, cervical region (principal); I10 Essential (primary) hypertension; Z88.8 Allergy status to other drugs, medicaments and biological substances; Z79.899 Other long term (current) drug therapy
CPT/HCPCS: 64490; 64491; J2250; J1100; J3010; Q9966; J2795

== ENCOUNTER → 2021-04-26 | Outpatient (CLI) | payer OTHER ==
--- NOTE | 2021-04-26 18:34 | CT ---
EXAMINATION TYPE: CT cervical spine wo con DATE OF EXAM: 04/26/2021 COMPARISON: 12/15/2020 HISTORY: Spondylosis without myelopathy or radiculopathy. CT DLP: 339.50 mGycm Automated exposure control for dose reduction was used. TECHNIQUE: CT scan of the cervical spine is obtained without contrast, axial images are obtained, sa gittal and coronal reformatted images are also reviewed. FINDINGS: Assessment spinal canal limited due to resolution artifact. Grossly craniocervical junction maintaine d. Prevertebral soft tissue structures within normal limits. C2-C3 there is no evidence of disc herniation or canal stenosis. Neural foramina patent. C3-C4 there is degenerative disc disease with bilateral uncovertebral joint hypertrophy. Greater on t he right. Facet arthropathy contributes to mild to moderate right-sided foraminal encroachment. At C4-C5 there is severe degenerative disc disease with posterior spondylosis and bilateral uncoverte bral joint hypertrophy. Facet arthropathy greater on the right. Moderate to severe right-sided forami nal encroachment and mild left foraminal encroachment. Central disc protrusion suspected could not ex clude canal stenosis. At C5-C6 there is extensive hypertrophic cervical spondylosis. Large anterior osteophytic spurs are n oted. There is bilateral uncovertebral joint hypertrophy with moderate to severe right foraminal and mild left foraminal encroachment. Effacement of thecal sac seen. Cannot exclude canal stenosis. At C6-C7 there severe degenerative disc disease with uncovertebral joint hypertrophy and anterior lar ge osteophyte formation. Severe bilateral foraminal encroachment. There is central disc bulging. Effa cement of thecal sac could not exclude canal stenosis. C7-T1 is severe artifact limits assessment spinal canal. There is degenerative disc disease and cervi jonny spondylosis with no obvious foraminal encroachment. IMPRESSION: 1. Severe multilevel hypertrophic and degenerative changes most marked at levels C4-C7. Could not exc lude canal stenosis at these levels. Multilevel severe right-sided foraminal encroachment is noted as discussed above.
== END | disposition home or self-care (01) ==
LOC: RADCTMAIN 17:25
PROVIDERS: ATTEND Orthopaedic Surgery
DX: M47.812 Spondylosis without myelopathy or radiculopathy, cervical region (principal); M99.71 Connective tissue and disc stenosis of intervertebral foramina of cervical region
CPT/HCPCS: 72125

== ENCOUNTER 2021-07-05 13:12 | Day surgery (SDC) | payer OTHER ==
[2021-07-03 15:46] VITALS: BMI 20.7
[2021-07-05] MEDS ORDERED: fentaNYL (PF) 50 MCG/ML 2 ML AMP ONE (13:36)
[2021-07-05] MEDS ORDERED: MIDAZOLAM 2 MG/2 ML VIAL ONE (13:36)
[2021-07-05] MEDS ORDERED: IOPAMIDOL M200 10 ML VIAL ONE (13:36)
[2021-07-05] MEDS ORDERED: DEXAMETHASONE SOD PHOSPHATE 10 MG/ML 1 ML VIAL ONE (13:36)
[2021-07-05 13:42] VITALS: TEMP 97.5
[2021-07-05] MEDS ORDERED: IV FLUID CONTINUATION 800 ML IV ONE (13:52)
--- NOTE | 2021-07-05 13:54 | P.PCN ---
Date of Procedure: 07/05/21 Procedure(s) Performed: . PROCEDURE 1. Cervical epidural steroid injection under fluoroscopic guidance, at C4-5 (fluoroscopy images available in the radiology department ) 2. Cervical epidurogram. PREOPERATIVE DIAGNOSIS: 1- Cervical Degenerative Disc Diseases 2- Cervical herniated disc 3-cervical spondylosis with cervical Facet arthropathy without myelopathy POSTOPERATIVE DIAGNOSIS: : 1- Cervical Degenerative Disc Diseases , 2- Cervical herniated disc. 3-,cervical spondylosis with cervical Facet arthropathy without myelopathy ANESTHESIA: Local anesthesia with lidocaine 1 % , and moderate sedation, with Versed 2 mg and Fentanyl 50 mcg. EBL 0 PROCEDURE INDICATION: The patient with neck pain and radiculitis unresponsive to conservative treatment consents for procedure. PROCEDURE DESCRIPTION / TECHNIQUE: The patient was seen and identified in the preoperative area. Risks, benefits, complications, including but not limited to infections ,bleeding , allergic reactions to the medications ,and not complete pain releife, and alternatives were discussed with the patient, the patient agreed to proceed with the procedure and signed the consent. Patient was taken to the OR and time out was completed. The patient was placed in the prone position on the procedure table. A pillow was placed under the patients chest to increase the cervical interlaminar space. The cervical area was prepped and draped in the usual sterile fashion. Vital signs were closely monitored during the procedure. Conscious sedation was used during the procedure to decrease patients anxiety. Using anterior-posterior fluoroscopy, the C4-5 interlaminar space was identified and the skin over this site was marked and then infiltrated with 1% lidocaine subcutaneously. Subsequently, a 20-gauge 3-1/2-inch Tuohy epidural needle was inserted and advanced toward the epidural space by means of the ``hanging-drop technique and guided by AP and lateral fluoroscopy. The correct needle position in the epidural space was verified with the injection of 2 mL of the water soluble contrast dye Isovue-200 and observing an excellent epidurogram with the epidural spread of the dye, after negative aspiration for blood and CSF and in the absence of paresthesias. then, mixture containing 20 mg Dexamethasone and 1 ml of preservative-free normal saline injected and a washout of epidurogram was seen. Needle was withdrawn intact, skin was cleansed, and bandages were applied. Complications= none. Disposition= patient was placed in supine position and transferred to the recovery room area in stable condition and there was no evidence of upper or lower extremity motor or sensory deficit after the procedure patient was discharged from recovery room after discharge criteria met and home discharge instructions was given by the staff and patient will follow with the pain clinic in 2-4 weeks note = patient had diagnostic medial branch block, he was schedualed to follow up in the pain clinic to discuss with him the results of the block, but he did not follow up with the pain clinic he saw Dr. Caldera ,and ,reffered him to have cervical epidural steroid injection, patient will follow up in the pain clinic, within a few weeks ,to evaluate the result of the injec tion today, also to evaluate the result of the injection of the medial branch block,if patient had a good result, with the medial branch block, then will consider doing RFA of the medial branch cervical area.
[2021-07-05 14:01] VITALS: RESP 16
--- NOTE | 2021-07-05 14:02 | FL ---
Fluoroscopy HISTORY: Pain 2 seconds fluoroscopy time supplied to the referring clinician. 1 intraoperative C-arm images docume nt the procedure. See dictated report from anesthesia.
[2021-07-05 14:09] VITALS: BP 133/90; PULSE 76
== END 2021-07-05 14:28 | disposition home or self-care (01) ==
LOC: ORPAIN 13:12
PROVIDERS: ATTEND Specialist
DX: M50.30 Other cervical disc degeneration, unspecified cervical region (principal); M50.20 Other cervical disc displacement, unspecified cervical region; M47.812 Spondylosis without myelopathy or radiculopathy, cervical region
CPT/HCPCS: 62321; J2250; J1100; J3010; Q9966; 99152

== ENCOUNTER → 2021-07-26 | Outpatient (CLI) | payer OTHER ==
[2021-07-26 11:14] VITALS: BP 130/85; PULSE 77; RESP 18; TEMP 98.5
--- NOTE | 2021-07-26 11:24 | P.PN ---
Subjective Progress Note Date: 07/26/21 This is a 40-year-old gentleman with history of neck pain with radiation to the left arm down to the left hand with occasional numbness and tingling in the fingerswith radicular distribution. The patient received cervical epidural steroid injection recently which did not help his pain however he did have 75% of pain relief after diagnostic cervical medial branch block for levels C4, C5, and C6 bilaterally. The left side of his neck is more painful than the right side. Patient denies new-onset weakness, bowel/bladder incontinence, or any other signs or symptoms of cauda equina syndrome. There are no signs of acute intoxication, and no indications of medication diversion or overuse. In addition to above, 13-point review of systems is also negative for chest pain, shortness of breath, changes in vision, changes in hearing, new onset weakness, abdominal pain, diarrhea, extreme fatigue, malaise, fever, skin changes, homicidal or suicidal ideation, or bowel or bladder incontinence. Vital Signs: Reviewed in EMR Gen: AAOx3, NAD HEENT: PERRLA,hearing grossly normal Pulm: resp unlabored Neck: supple, trachea midline Neuro exam of the upper extremities: Normal muscle strength bilaterally and symmetrical deep tendon reflexes with absent biceps reflex bilaterally Straight leg raising test: Fuad's test: Range of motion of the cervical spine: Mildly decreased with pain with extreme range of motion especially to left rotation Facet loading test: Tenderness in the paravertebral musculature: Positive in the cervical area bilaterally Neuro: CN II-XII grossly intact, Imaging: Reviewed in EMR/chart Assessment: Cervical spondylosis without myelopathy Left cervical radiculopathy Myofascial pain Plan: 1. Explanation: When patients on opioids, opioid and psychological risk scores were reviewed. Diagnoses, prognoses, and multiple treatment options including but not limited to physical therapy, interventional therapies, adjuvant medical therapies, narcotic medication therapies, and surgery were discussed with the patient and all questions were answered to the patient's satisfaction. 2. Opioid agreement:When patients are prescribed opoids through our clinic, opioid agreement is signed with the patient and the patient is warned not to use opioids while driving or before driving and not to combine opioids with benzodiazepines or alcohol. 3. Counseling: When patient is smoking or obese, the patient was counseled extensively on SMOKING CESSATION, BODY MASS INDEX, EXERCISE. Specifically, the patient was instructed regarding the importance of smoking cessation, obesity, and exercise in the context of both chronic pain and overall health. 4. Procedures: Scheduled for cervical medial branch RFA on the left side for levels C4, C5, and C6. We will proceed with the right-sided later on. 5. Consultations: None 6. Investigations: None 7. Medications: None prescribed 8. Disposition: Return to the above-mentioned procedure as soon as possible 9. Maps were reviewed and were appropriate. Objective - Vital Signs Vital signs: Vital Signs Temp 98.5 F 07/26/21 11:07 Pulse 77 07/26/21 11:07 Resp 18 07/26/21 11:07 BP 130/85 07/26/21 11:07 Pulse Ox 98 07/26/21 11:07 Intake & Output 07/25/21 07/26/21 07/26/21 18:59 06:59 18:59 Weight 64.864 kg
== END ==
LOC: PNWHC3 10:59
PROVIDERS: ATTEND Anesthesiology
DX: M47.22 Other spondylosis with radiculopathy, cervical region (principal); M79.18 Myalgia, other site; F17.200 Nicotine dependence, unspecified, uncomplicated; Z88.8 Allergy status to other drugs, medicaments and biological substances
CPT/HCPCS: 99211

== ENCOUNTER 2021-09-28 11:33 | Day surgery (SDC) | payer OTHER ==
[2021-09-27 08:28] VITALS: BMI 19.8
[2021-09-28] MEDS ORDERED: LACTATED RINGERS 1,000 ML IV SCH (11:45)
[2021-09-28 11:57] VITALS: RESP 16; TEMP 98.6
[2021-09-28] MEDS ORDERED: methylPREDNISolone ACETATE 40 MG/ML 1 ML VIAL ONE (12:39)
[2021-09-28] MEDS ORDERED: ROPIVACAINE 5MG/ML 20ML VIAL ONE (12:39)
[2021-09-28] MEDS ORDERED: .fentaNYL (PF) 50 MCG/ML 2 ML AMP ONE ×2 (12:40)
[2021-09-28] MEDS ORDERED: MIDAZOLAM 2 MG/2 ML VIAL ONE ×2 (12:40)
--- NOTE | 2021-09-28 13:09 | P.PCN ---
Date of Procedure: 09/28/21 Procedure(s) Performed: PREOPERATIVE DIAGNOSIS: Cervical spondylosis with Facet Arthropathy without myelopathy. POSTOPERATIVE DIAGNOSIS: Cervical spondylosis with Facet Arthropathy without myelopathy. PROCEDURES: Radiofrequency thermocoagulation, Left C4, C5, C6 medial branch with Fluroscopy [place](fluoroscopy was available in etiology department ) (to denervate the facet joint at Left C4- 5 , C5- 6 ) ANESTHESIA: Monitored anesthesia care as per anesthesia department. EBL: Minimal PROCEDURE INDICATION: The patient with neck pain secondary to cervical arthropathy who had more than 50% relief of her pain with previous diagnostic cervical medial branch block. PROCEDURE DESCRIPTION / TECHNIQUE: The patient was seen and identified in the preoperative area. Risks, benefits, complications, and alternatives were discussed with the patient, the patient agreed to proceed with the procedure and signed the consent. IV was started. Vital signs remained stable throughout the procedure. Patient was taken to the OR and time out was completed. The patient was placed in the prone position on the procedure table. A pillow was placed under the patients chest to increase the cervical interlaminar space. The cervical area was prepped and draped in the usual sterile fashion. Critical pause was taken. Vital signs were closely monitored during the procedure. Conscious sedation was used during the procedure to decrease patients anxiety. Using cross-table lateral fluoroscopy, the centroid of the trapezoid of left C4, C5, and C6 were identified, marked, and localized with 1% lidocaine. Subsequently, a 20 [id number] radiofrequency cannula with a 10-mm active tip was advanced guided by fluoroscopy to the centroid of the trapezoid of left C4, C5, and C6 . Needle tip position was confirmed at the centroid of the trapezoids of left C4, C5, and C6 with anteroposterior fluoroscopy. Each site then underwent sensory testing at 50 Hz and 0 to 1 volt and motor testing at 2 Hz and 0 to 3 volt with local stimulation, but no radicular symptoms down the arm. Thereafter each sites underwent radiofrequency thermocoagulation at 80 degrees celsius for 90 seconds after injecting 0.5 ml of PF Ropivacaine 0.5 %. After thermocoagulation, 1 ml of the block solution containing Depo-Medrol 40 mg and 3 mL of preservative-free normal saline was injected at the left C4, C5, and C6 levels after negative aspiration of CSF and blood and with no paresthesias. Natanael ulas were retracted while injecting lidocaine 1% until the needle is out. Skin was cleansed and bandages were applied. COMPLICATIONS: No acute complications. DISPOSITION / PLANS: The patient was placed in a supine position and transferred to the recovery area in a stable condition for observation and was discharged from the recovery room after meeting discharge criteria. Home discharge instructions given to the patient by the staff. The patient was reexamined prior to discharge. The patient will schedule a follow up in the clinic in 2-4 weeks.
[2021-09-28] MEDS ORDERED: IV FLUID CONTINUATION 1,000 ML IV ONE (13:11)
--- NOTE | 2021-09-28 13:17 | FL ---
EXAMINATION TYPE: FL guided pain mgmt statistic DATE OF EXAM: 09/28/2021 CLINICAL HISTORY: Neck pain. TECHNIQUE: Fluoroscopy. COMPARISON: None. FINDINGS: Fluoroscopic guidance was provided during pain relief procedure performed by Dr. Nails . A total of 28 seconds of fluoroscopic time was utilized during the procedure and 1 spot images are acquired. Single image acquired shows needle localization from posterior approach at several levels in the mid to lower cervical spine. IMPRESSION: As Above.
[2021-09-28 13:33] VITALS: BP 120/82; PULSE 73
== END 2021-09-28 13:53 | disposition home or self-care (01) ==
LOC: ORPAIN 11:33
PROVIDERS: ATTEND Specialist
DX: M47.22 Other spondylosis with radiculopathy, cervical region (principal); M48.02 Spinal stenosis, cervical region
CPT/HCPCS: 64633; 64634; J2250; J1030; J3010; J2795

== ENCOUNTER → 2021-10-24 | Outpatient (CLI) | payer OTHER ==
[2021-10-24 15:32] VITALS: BP 138/91; PULSE 113; RESP 18; TEMP 98.4
--- NOTE | 2021-10-24 16:13 | P.PN ---
Subjective Progress Note Date: 10/24/21 Principal diagnosis: A 41 yr old male with a history of severe and chronic neck pain secondary to cervical degenerative disc diseases and spondylosis with facet arthropathy presents today for evaluation of R sided cervical RFA and follow up of L cervical RFA. Pt completed L sided cervical RFA on 09/28/2021 and his pain level on the left side is currently 9 /10. Pt states he felt significant pain relief on the left side s/p procedure, but that the pain progressed after 1 week. Pain is localized to the mid to lower neck region, dull/ achy in character and at times shoots towards the shoulders bilaterally. Pt states his "shoulders feel swollen" from the radiation of the pain. Pain in his neck is provoked by standing for periods of 1 hr or more, turning head or lifting. Pain is alleviated with medications, injections, physical therapy in the past, a home based PT regimen, massage, laying on his side, heat and rest. Interventional pain procedures completed include L C4, C5, C6 RFA Patient is currently on Gabapentin and Aleve Patient denies any side effects of the medication(s), denies excessive drowsiness or sleepiness, denies suicidal ideation and reports that the current pain medication is helping to control the pain and improve activities of daily living. Patient denies any motor or sensory deficits. Patient denies any fever or night sweats, denies any change in the bowel movements or urination. Physical Examination: -Constitutional: Cooperative. Not in acute distress . -HEENT: Neck is supple. No lymphadenopathy. No thyromegaly. Normal thyroid size. Eyes: No ptosis , no icterus, no photophobia. ENT: No auditory deficits. Normal oropharynx. No Thrush. - Respiratory: Chest clear to auscultations bilaterally. No wheezing. No rhonchi. - Cardiovascular: Regular rate and rhythm. S1 / S2 , no S3 , no S4. - Gastrointestinal: Abdomen soft no tenderness. Bowel sounds positive in all four quadrants. No organomegaly. - Genitourinary: Deferred. - Neurologic: Cranial nerve II to XII intact. No focal neurological deficits. - Psychatric: Alert & oriented x 3. Matching mood & appropriate affect. Judgment and insight intact. - Lymphatic: No Lymphadenopathy. - Musculoskeletal: Cervical spine: Muscle bulk/ tone in the bilateral upper extremities normal. Cervical lateral flexion is limited due to pain Spurling test positive Facet loading test cervical area positive over BL C4, C5, C6, C7 Distraction test positive Lumbar spine: Motor bulk/ tone/ strength lower extremities , thigh and legs : 5/5 Deep tendon reflexes : Normal Knee Jerk. Normal Ankle Jerk . Lumbar Facet Loading Test positive Straight Leg Raise: positive at 30 degree right side/ left side Darrell test: positive right side / left side Range of motion: Range of motion in flexion of the lumbar spine <60 degrees Range of motion: Extension of the lumbar spine <20 degrees Severe tenderness over the Sacroiliac joint: right side / left side Assessment and plan: Chronic neck pain secondary to cervical degenerative disc disease , spondylosis with facet arthropathy without myelopathy Recommendation of R cervical C4, C5, C6 Risks/ benefits of procedure discussed and pt verbalized understanding To follow up within 2-4 weeks after procedure for evaluation and medical management Denies use of aspirin or other anticoagulants All patient questions answered MAPS reviewed and it was appropriate. Prescription filled for BioFreeze gel I have spent 31 minutes on patient care today. Dr Nails was available by phone for the evaluation of this patient. The time was used to review the medical records including relevant urine studies and Prescription history (MAPs), review of the available imaging, evaluation and examination of the patient, coordination of care with the medical staff and if applicable referring physicians, as well as creation of the medical record Objective - Vital Signs Vital signs: Vital Signs Temp 98.4 F 10/24/21 15:14 Pulse 113 H 10/24/21 15:14 Resp 18 10/24/21 15:14 BP 138/91 10/24/21 15:14 Pulse Ox 100 10/24/21 15:14 PQRS Measure Charge Sheet Mode of Arrival: Ambulatory - Pain Location Neck Non-Pharmacological Interventions: Heat, Inactivity, Massage, Meditation, Physical Therapy, Stretching Pharmacological Interventions: Block, PRN Medication PQRS Narrative: Smoking Status Current every day smoker Blood Pressure 138/91 Pain Intensity [Neck] 9 Scale Used Numeric (1 - 10) Hx Alcohol Use (MH) Yes Home Medications: Ambulatory Orders hydroCHLOROthiazide 25 mg PO QAM 07/26/19 amLODIPine [Norvasc] 10 mg PO QAM 07/10/20 Naproxen Sodium [Aleve] 440 mg PO BID PRN 02/09/21 Atorvastatin [Lipitor] 20 mg PO HS 07/05/21 Omeprazole [PriLOSEC] 20 mg PO AC-BRKFST 07/05/21 Meloxicam 15 mg PO 1900 07/25/21 Minocycline [Minocin] 100 mg PO BID 10/18/21
== END ==
LOC: PNWHC3 13:52
PROVIDERS: ATTEND Physician Assistant Medical
DX: M50.30 Other cervical disc degeneration, unspecified cervical region (principal); M47.812 Spondylosis without myelopathy or radiculopathy, cervical region; G89.29 Other chronic pain; F17.200 Nicotine dependence, unspecified, uncomplicated; Z88.8 Allergy status to other drugs, medicaments and biological substances
CPT/HCPCS: 99211

== ENCOUNTER → 2021-11-01 | Outpatient (CLI) | payer OTHER ==
--- NOTE | 2021-11-01 15:55 | US ---
TYPE: US gallbladder DATE OF EXAM: 11/01/2021 COMPARISON: NONE CLINICAL HISTORY: pain. EXAM MEASUREMENTS: Liver Length: 14.5 cm Gallbladder Wall: 0.3 cm CBD: 0.6 cm Right Kidney: 9.6 cm Pancreas: wnl, partially obscured by bowel gas Liver: wnl Gallbladder: wnl Evidence for sonographic Suggs's sign: no CBD: wnl Right Kidney: No hydronephrosis or masses seen, inferior pole obscured by bowel gas IMPRESSION: 1. Normal right upper quadrant ultrasound
== END | disposition home or self-care (01) ==
LOC: RADUSWWP 08:08
PROVIDERS: ATTEND Family Medicine
DX: R74.8 Abnormal levels of other serum enzymes (principal)
CPT/HCPCS: 76705

== ENCOUNTER 2021-12-14 06:57 | Day surgery (SDC) | payer OTHER ==
[2021-12-13 13:23] VITALS: BMI 19.9
[2021-12-14 07:21] VITALS: TEMP 98.3
[2021-12-14] MEDS ORDERED: LACTATED RINGERS 1,000 ML IV ONE ×2 (07:21)
[2021-12-14] MEDS ORDERED: fentaNYL (PF) 50 MCG/ML 2 ML AMP ONE (07:33)
[2021-12-14] MEDS ORDERED: MIDAZOLAM 2 MG/2 ML VIAL ONE (07:33)
[2021-12-14] MEDS ORDERED: ROPIVACAINE 5MG/ML 20ML VIAL ONE (07:33)
--- NOTE | 2021-12-14 07:56 | P.PCN ---
Date of Procedure: 12/14/21 Procedure(s) Performed: PREOPERATIVE DIAGNOSIS: Cervical spondylosis without myelopathy POSTOPERATIVE DIAGNOSIS: Cervical spondylosis without myelopathy PROCEDURES: Radiofrequency thermocoagulation of C5 6 - C6 7 on the right Imaging: Fluoroscopy was used, images where saved to the medical record ANESTHESIA: Anesthesia per nurse facility maintenance technician please see anesthesia record EBL: Minimal PROCEDURE INDICATION: The patient with neck pain secondary to cervical arthropathy who had more than 50% relief of her pain with previous diagnostic cervical medial branch block. PROCEDURE DESCRIPTION / TECHNIQUE: The patient was seen and identified in the preoperative area. Risks, benefits, complications, and alternatives were d iscussed with the patient, the patient agreed to proceed with the procedure and signed the consent. IV was started. Vital signs remained stable throughout the procedure. Patient was taken to the OR and time out was completed. The patient was placed in the prone position on the procedure table. A pillow was placed under the patient's chest to increase the cervical interlaminar space. The cervical area was prepped and draped in the usual sterile fashion. Critical pause was taken. Vital signs were closely monitored during the procedure. Conscious sedation was used during the procedure to decrease patient's anxiety. Using cross-table lateral fluoroscopy, the centroid of the trapezoid of the above referenced levels were identified, marked, and localized with 1% lidocaine. Subsequently, a 20 [id number] radiofrequency cannula with a 10-mm active tip was advanced guided by fluoroscopy to the centroid of the trapezoid of the above referenced levels. Needle tip position was confirmed at the centroid of the trapezoids of the above referenced levels with anteroposterior fluoroscopy. Each site then underwent sensory testing at 50 Hz and 0 to 1 volt and motor testing at 2 Hz and 0 to 3 volt with local stimulation, but no radicular symptoms down the arm. Thereafter the targeted sites underwent radiofrequency thermocoagulation at 80 degrees celsius for 90 seconds after injecting 0.5 ml of PF lidocaine 1%. After thermocoagulation of the targeted sites, 1 ml of 0.5% ropivacaine at each level was then injected after negative aspiration of CSF and blood and with no paresthesias. Cannulas were retracted while injecting her 0.5% ropivacaine until the needle is out. Skin was cleansed and bandages were applied. COMPLICATIONS: No acute complications. DISPOSITION / PLANS: The patient was placed in a supine position and transferred to the recovery area in a stable condition for observation and was discharged from the recovery room after meeting discharge criteria. Home discharge instructions given to the patient by the staff. The patient was reexamined prior to discharge. The patient will schedule a follow up as directed.
[2021-12-14] MEDS ORDERED: IV FLUID CONTINUATION 1,000 ML IV ONE ×2 (08:05)
--- NOTE | 2021-12-14 08:10 | FL ---
Fluoroscopy History: Cerv Rad Freq 9 sec fl time used cervical rf
[2021-12-14 08:23] VITALS: BP 121/80; PULSE 77; RESP 16
== END 2021-12-14 08:34 | disposition home or self-care (01) ==
LOC: ORPAIN 06:57
PROVIDERS: ATTEND Hospitalist
DX: M47.812 Spondylosis without myelopathy or radiculopathy, cervical region (principal)
CPT/HCPCS: 64633; 64634; J2250; J3010; J2795

== ENCOUNTER 2022-02-19 06:54 | Day surgery (SDC) | payer OTHER ==
[2022-02-18 13:26] VITALS: BMI 20.5
[2022-02-19 07:15] VITALS: TEMP 98.5
[2022-02-19] MEDS ORDERED: LACTATED RINGERS 1,000 ML IV ONE (07:20)
[2022-02-19] MEDS ORDERED: IV FLUID CONTINUATION 1,000 ML IV ONE (08:27)
--- NOTE | 2022-02-19 08:30 | P.PAINPG ---
Subjective Progress Note Date: 02/19/22 This is 41 years old male , who is diagnosed with cervical degenerative disc disease, cervical spondylosis with cervical facet arthropathy, patient had the frequency ablation of the medial branch cervical area, patient continued to have severe neck pain and he was scheduled to have transforaminal epidural steroid injection at C4 5 bilaterally, patient reported that currently most of his pain in the cervical spinal area, also in the shoulder blade area, patient denies any numbness or tingling sensation in the upper extremity, as any motor or sensory deficit, denies any change in the bowel movements or urination, and already done physical therapy previously and he continue to use [id number] pain medication, the pain increases with any activity of daily livings and increased with lifting or any physical activity, patient continued to use naproxen 440 milligrams twice a day and denies any side effect of the medication Objective - Vital Signs Vital signs: Vital Signs Temp 98.5 F 02/19/22 07:11 Pulse 121 H 02/19/22 07:11 Resp 16 02/19/22 07:11 BP 136/82 02/19/22 07:11 Pulse Ox 99 02/19/22 07:11 Intake & Output 02/18/22 02/19/22 02/19/22 18:59 06:59 18:59 Intake Total 200 Balance 200 Weight 61.235 kg 62.4 kg Intake: IV 200 - Exam Physical Examinations : -Constitutiona : Cooperative , not in acute distress . -HEENT : nech : supple , no Lymphadenopathy , normal thyroid size . : eyes : no ptosis , no icterus, no photophobia . - neurologic : Cranial nerve II to XII intact , no focal neurological deffecit . -psychatric : alert , oriented X 3 , appropriate affect , intact judgment and insight . -Lymphatic : no Lymphadenopathy . - musculoskeltal : Cervical Spine motor stregnth in the deltoid and biceps, normal right side , normal Left side motor stregnth biceps and the wrist extensors normal right side ,normal left side . motor stregnth in the triceps muscle . normal Right side , normal Left side deep tendon reflexes normal at the biceps , normal at Brachioradialis , normal at triceps. cervical facet loading test: Positive Bilaterally Spurling test= positive Right , positive left. Neck distraction test= positive Right , positive left. Asad sign= positive right, positive left . multiple trigger point identified in the cervical upper thoracic paraspinal muscles bilaterally. Total trigger point identified in the shoulder blade area bilaterally Lumber spine moter stegnth lower extremities ,thigh and legs 5/5 Right side , 5/5 Left side Assessment and Plan Plan: Assessment and plan=1-cervical spondylosis with cervical facet arthropathy. 2-cervical degenerative disc disease. 3-myofascial pain syndrome cervical paraspinal muscles, thoracic paraspinal muscles, shoulder blade area bilaterally. Patient continued to have neck pain , and shoulder blade area pain, and upper thoracic area, after RFA of the medial branch cervical area, examinations for the currently most of the pain is coming from the myofascial component, for this reason patient could benefit from trigger point injection cervical paraspinal muscles thoracic paraspinal muscles and shoulder blade area. PQRS Measure Charge Sheet Measure #130: Documentation of Current Meds in Medical Chart: Patient's medications documented in chart Measure #412: Opioid Treatment Agreement: No documentation of signed opioid treatment agreement - Pain Location Upper Back Non-Pharmacological Interventions: Position/Reposition PQRS Narrative: Smoking Status Current every day smoker Blood Pressure [Right Arm 136/82 Sitting] Pain Intensity [Upper Back] 6 Pain Scale Used [Upper Back] Numeric (1 - 10) Hx Alcohol Use (MH) Yes Home Medications: Ambulatory Orders hydroCHLOROthiazide 25 mg PO QAM 07/26/19 amLODIPine [Norvasc] 10 mg PO QAM 07/10/20 Naproxen Sodium [Aleve] 440 mg PO BID PRN 02/09/21 Atorvastatin [Lipitor] 20 mg PO HS 07/05/21 Omeprazole [PriLOSEC] 20 mg PO AC-BRKFST 07/05/21 Meloxicam 15 mg PO HS 07/25/21 Controlled Substance Measures - Controlled Substance Measures Is patient prescribed a controlled substance at discharge?: No
--- NOTE | 2022-02-19 08:33 | P.PN ---
Progress Note - Text Progress Note Date: 02/19/22 Patient was scheduled to have cervical transforaminal epidural steroid injection, but the procedure was changed to a trigger point injection, post patient reported that most of the pain in the cervical and thoracic and shoulder blade area, exam was positive for multiple trigger point, patient was given Rocephin 1 mg and fentanyl 50 g and then after that we found out , that the insurance needs prior authorization before we'll proceed with the trigger point injection, all this reason the procedure was canceled and the patient will be rescheduled for trigger point injection in the cervical and thoracic and shoulder blade area.
[2022-02-19 08:41] VITALS: BP 125/85; PULSE 77; RESP 16
== END 2022-02-19 08:45 | disposition home or self-care (01) ==
LOC: ORPAIN 06:54
PROVIDERS: ATTEND Specialist
DX: M50.30 Other cervical disc degeneration, unspecified cervical region (principal); M47.812 Spondylosis without myelopathy or radiculopathy, cervical region

== ENCOUNTER 2022-03-05 10:20 | Day surgery (SDC) | payer OTHER ==
[2022-03-04 10:50] VITALS: BMI 20.8
[2022-03-05 10:41] VITALS: TEMP 98
[2022-03-05] MEDS ORDERED: MIDAZOLAM 2 MG/2 ML VIAL ONE (11:23)
[2022-03-05] MEDS ORDERED: fentaNYL (PF) 50 MCG/ML 2 ML AMP ONE (11:23)
[2022-03-05] MEDS ORDERED: ROPIVACAINE 5MG/ML 20ML VIAL ONE (11:23)
[2022-03-05] MEDS ORDERED: methylPREDNISolone ACETATE 40 MG/ML 1 ML VIAL ONE (11:23)
--- NOTE | 2022-03-05 11:31 | P.PCN ---
Date of Procedure: 03/05/22 Description of Procedure: Preoperative Diagnosis: myofascial pain syndrome of cervical and thoracic paraspinal muscles Postoperative diagnosis: Same Anesthesia: Local with IV sedation 1 mg of Versed and 50 g of fentanyl Surgeon: Dirk Foote MD Indications for procedure: This is a 41-year-old patient with myofascial pain and palpable trigger points in thoracic and cervical paraspinal muscles. The patient consents for an injection after an explanation of risks including but not limited to bleeding and infection, benefits, and alternatives and the patient has signed a consent form indicating understanding of all of them. Description of procedure: After informed consent was obtained the patient's painful area was sterilely prepped in the usual fashion with ChloraPrep. Cervical and thoracic paraspinal muscle trigger points were identified via palpation of the cervical and thoracic paraspinal muscles and marked sterilely. Each trigger point was injected with a 25-gauge one and a half inch needle. At that point a solution consisting of 9ml of 0.5% ropivacaine with 40mg of depomedrol was distributed evenly over the trigger points. The patient's vital signs were stable afterwards and the proc edure was tolerated well. Patient was discharged home with follow-up instructions.
[2022-03-05] MEDS ORDERED: IV FLUID CONTINUATION 1,000 ML IV ONE (11:39)
[2022-03-05 11:57] VITALS: BP 123/82; PULSE 77; RESP 20
== END 2022-03-05 12:05 ==
LOC: ORPAIN 10:20
PROVIDERS: ATTEND Hospitalist
DX: M79.18 Myalgia, other site (principal)
CPT/HCPCS: 20553; J2250; J1030; J3010; J2795

== ENCOUNTER → 2022-04-01 | Outpatient (CLI) | payer OTHER ==
[2022-04-01 14:32] VITALS: BP 133/84; PULSE 76; RESP 18; TEMP 98
--- NOTE | 2022-04-01 15:03 | P.PAINPG ---
Objective - Vital Signs Vital signs: Vital Signs Temp 98.0 F 04/01/22 14:25 Pulse 76 04/01/22 14:25 Resp 18 04/01/22 14:25 BP 133/84 04/01/22 14:25 Pulse Ox 98 04/01/22 14:25 FiO2 Intake & Output 03/31/22 04/01/22 04/01/22 18:59 06:59 18:59 Weight 63.503 kg PQRS Measure Charge Sheet Mode of Arrival: Ambulatory Comment: A 41 yr old male with at side with a history of severe and chronic neck pain secondary to degenerative disc diseases and spondylosis with facet arthropathy presents today for evaluation s/p RFA R C4-C5, C5-C6. He states he experienced 0% pain relief s/p procedure. Pain level is currently at 10/10 in intensity, localized to the lower aspect of the cervical spine and upper aspect of the thoracic spine, constant, sharp, burning in character with radiation of pain occasionally to the shoulders. Pain is provoked by hyperextension. Pain is alleviated with L today ice and heat, physical therapy twice a week for 6 months in 2020 which was integrated with massage, laying supine and rest. Reviewed MRI results with pt explaining posterior disc bulge in C4-C5, C5-C6 and that pt is not a BL TFESI candidate due to the placement of the cervical vertebral artery. Interventional pain procedures completed include BL RFA C4-C5, C5-C6; TPIs Patient is currently on DENIES Patient denies any side effects of the medication(s), denies excessive drowsiness or sleepiness, denies suicidal ideation and reports that the current pain medication is helping to control the pain and improve activities of daily living. Patient denies any motor or sensory deficits. Patient denies any fever or night sweats, denies any change in the bowel movements or urination. Physical Examination: -Constitutional: Cooperative. Not in acute distress . -HEENT: Neck is supple. No lymphadenopathy. No thyromegaly. Normal thyroid size. Eyes: No ptosis , no icterus, no photophobia. ENT: No auditory deficits. Normal oropharynx. No Thrush. - Respiratory: Chest clear to auscultations bilaterally. No wheezing. No rhonchi. - Cardiovascular: Regular rate and rhythm. S1 / S2 , no S3 , no S4. - Gastrointestinal: Abdomen soft no tenderness. Bowel sounds positive in all four quadrants. No organomegaly. - Genitourinary: Deferred. - Neurologic: Cranial nerve II to XII intact. No focal neurological deficits. - Psychatric: Alert & oriented x 3. Matching mood & appropriate affect. Judgment and insight intact. - Lymphatic: No Lymphadenopathy. - Musculoskeletal: Cervical spine: Muscle bulk/ tone/ strength in the bilateral upper extremities normal Vertebral body tenderness to palpation over C4, C5, C6 Facet loading test positive Thoracic spine Muscle bulk / tone/ strength in the bilateral paraspinal muscles normal Vertebral body tender to palpation over Facet loading test positive Lumbar spine: Motor bulk/ tone/ strength lower extremities , thigh and legs : 5/5 Deep tendon reflexes : Normal Knee Jerk. Normal Ankle Jerk . Vertebral body tenderness to palpation over Lumbar Facet Loading Test positive Straight Leg Raise: positive at 30 degrees right side/ left side Gaenslen's Test positive Sacral spine : Severe tenderness over the Sacroiliac joint: right side / left side Range of motion: Flexion of the lumbar spine <60 degrees Range of motion: Extension of the lumbar spine <20 degrees Gaenslen's Test positive Fuad's Test positive Darrell test: positive right side / left side Thigh Thrust Test Sacral Thrust Test Assessment and plan: Chronic low back pain secondary to lumbar degenerative disc disease , lumbar spondylosis with facet arthropathy without myelopathy Pt has exhausted all minimally invasive pain management modalities including nerve blocks that lead up to BL rhizotomy of C4-C5, C5-C6 as well as TPIs. Pt is not a BL TFESI candidate due to the placement of the cervical vertebral artery. Pt will return to his orthopedic surgeon, Dr Caldera, to explore other management options. Risks, benefits of procedure discussed and pt verbalized understanding. Denies anticoagulant use or medical history of diabetes. All patient questions answered MAPS reviewed and it was appropriate. I have spent 31 minutes on patient care today. Dr Nails was available by phone for the evaluation of this patient. The time was used to review the medical records including relevant urine studies and Prescription history ([facility]), review of the available imaging, evaluation and examination of the patient, coordination of care with the medical staff and if applicable referring physicians, as well as creation of the medical record - Pain Location Bilateral Lower Neck Non-Pharmacological Interventions: Elevation, Heat, Ice, Massage, Physical Therapy Pharmacological Interventions: Epidural PQRS Narrative: Smoking Status Current every day smoker Blood Pressure 133/84 Pain Intensity [Bilateral 10 Lower Neck] Scale Used Numeric (1 - 10) Hx Alcohol Use (MH) Yes Home Medications: Ambulatory Orders hydroCHLOROthiazide 25 mg PO QAM 07/26/19 amLODIPine [Norvasc] 10 mg PO QAM 07/10/20 Naproxen Sodium [Aleve] 440 mg PO BID PRN 02/09/21 Atorvastatin [Lipitor] 20 mg PO HS 07/05/21 Omeprazole [PriLOSEC] 20 mg PO AC-BRKFST 07/05/21 Meloxicam 15 mg PO HS 07/25/21 Controlled Substance Measures - Controlled Substance Measures Is patient prescribed a controlled substance at discharge?: No
== END ==
LOC: PNWHC3 14:02
PROVIDERS: ATTEND Specialist
DX: G89.29 Other chronic pain (principal); M51.36 Other intervertebral disc degeneration, lumbar region; M47.816 Spondylosis without myelopathy or radiculopathy, lumbar region; F17.200 Nicotine dependence, unspecified, uncomplicated; Z88.8 Allergy status to other drugs, medicaments and biological substances
CPT/HCPCS: 99211

== ENCOUNTER 2022-05-13 22:49 | Emergency (ER) | payer OTHER ==
--- NOTE | 2022-05-13 22:56 | ED ---
Psych HPI - General Source: RN notes reviewed, old records reviewed Limitations: no limitations - History of Present Illness MD Complaint: suicidal ideation, feels depressed -: unknown Associated Psychiatric Symptoms: depression, suicidal ideation, racing thoughts History of same: Yes Quality: constant, getting worse Improves With: none Worsens With: alcohol Context: recent alcohol abuse Associated Symptoms: denies other symptoms Treatments Prior to Arrival: placed on mental health hold If Self Harm: admits thoughts of self harm <Malcolm Birmingham - Last Filed: 05/14/22 03:58> <Fredy Stewart - Last Filed: 05/14/22 09:43> - General Stated Complaint: sucidial idealogy Time Seen by Provider: 05/13/22 22:55 - Related Data Home Medications Medication Instructions Recorded Confirmed hydroCHLOROthiazide 25 mg PO HS 07/26/19 05/14/22 amLODIPine [Norvasc] 10 mg PO QAM 07/10/20 05/14/22 Omeprazole [PriLOSEC] 20 mg PO AC-BRKFST 07/05/21 05/14/22 Ergocalciferol [Vitamin D2 (1250 1,250 mcg PO SA 05/14/22 05/14/22 Mcg = 24964 Iu)] Meloxicam [Mobic] 7.5 mg PO BID 05/14/22 05/14/22 Potassium Chloride [Klor-Con 10 ER] 10 meq PO BID 05/14/22 05/14/22 Allergies Allergy/AdvReac Type Severity Reaction Status Date / Time lisinopril Allergy Rash/Hives, Verified 05/14/22 07:25 SWELLING OF FACE Review of Systems ROS Other: All systems not noted in ROS Statement are negative. <Malcolm Birmingham - Last Filed: 05/14/22 03:58> ROS Other: All systems not noted in ROS Statement are negative. <Fredy Stewart - Last Filed: 05/14/22 09:43> ROS Statement: Those systems with pertinent positive or pertinent negative responses have been documented in the HPI. Past Medical History Past Medical History: Hyperlipidemia, Hypertension Additional Past Medical History / Comment(s): Pericarditis, bowel obstruction, chronic neck and shoulder pain. History of Any Multi-Drug Resistant Organisms: None Reported Past Surgical History: Bowel Resection Additional Past Surgical History / Comment(s): pain clinic procedures, abdominal surgery for scar tissue., Past Anesthesia/Blood Transfusion Reactions: No Reported Reaction Smoking Status: Current every day smoker - Past Family History Mother Family Medical History: No Reported History Father Family Medical History: Coronary Artery Disease (CAD) <Malcolm Birmingham - Last Filed: 05/14/22 03:58> General Exam General appearance: alert, in no apparent distress, appears intoxicated, anxious Head exam: Present: atraumatic, normocephalic, normal inspection Eye exam: Present: normal appearance, PERRL, EOMI. Absent: scleral icterus, conjunctival injection, periorbital swelling ENT exam: Present: normal exam, mucous membranes moist Neck exam: Present: normal inspection. Absent: tenderness, meningismus, lymphadenopathy Respiratory exam: Present: normal lung sounds bilaterally. Absent: respiratory distress, wheezes, rales, rhonchi, stridor Cardiovascular Exam: Present: regular rate, normal rhythm, normal heart sounds. Absent: systolic murmur, diastolic murmur, rubs, gallop, clicks GI/Abdominal exam: Present: soft, normal bowel sounds. Absent: distended, tenderness, guarding, rebound, rigid Extremities exam: Present: normal inspection, full ROM, normal capillary refill. Absent: tenderness, pedal edema, joint swelling, calf tenderness Back exam: Present: normal inspection Neurological exam: Present: alert, oriented X3, CN II-XII intact Psychiatric exam: Present: normal affect, normal mood Skin exam: Present: warm, dry, intact, normal color. Absent: rash <Malcolm Birmingham - Last Filed: 05/14/22 03:58> Course Vital Signs 05/13/22 05/14/22 05/14/22 23:17 04:00 06:31 Temperature 98.2 F 97.6 F 98 F Pulse Rate 83 80 86 Respiratory 16 20 20 Rate Blood Pressure 126/79 126/76 119/72 O2 Sat by Pulse 99 98 97 Oximetry Medical Decision Making <Fredy Stewart - Last Filed: 05/14/22 09:43> - Medical Decision Making 41-year-old male who had presented for evaluation of depression and suicidal thoughts. Patient was medically cleared by the previous physician and was awaiting EPS evaluation. He was evaluated by EPS while in the emergency department and felt to be safe for discharge. He signed a safety plan. I did reevaluate the patient is resting comfortably. He states he feels much better. He has no suicidal thoughts or plan currently. He is safe for discharge at this time. (Fredy Stewart) - Lab Data Lab Results 05/14/22 Range/Units 04:04 Urine Opiates Screen Not Detected (NotDetected) Ur Oxycodone Screen Not Detected (NotDetected) Urine Methadone Screen Not Detected (NotDetected) Ur Propoxyphene Screen Not Detected (NotDetected) Ur Barbiturates Screen Not Detected (NotDetected) U Tricyclic Antidepress Not Detected (NotDetected) Ur Phencyclidine Scrn Not Detected (NotDetected) Ur Amphetamines Screen Not Detected (NotDetected) U Methamphetamines Scrn Not Detected (NotDetected) U Benzodiazepines Scrn Not Detected (NotDetected) Urine Cocaine Screen Not Detected (NotDetected) U Marijuana (THC) Screen Detected H (NotDetected) Disposition <Malcolm Birmingham - Last Filed: 05/14/22 03:58> Is patient prescribed a controlled substance at d/c from ED?: No Time of Disposition: 09:43 <Fredy Stewart - Last Filed: 05/14/22 09:43> Clinical Impression: Depression Disposition: HOME SELF-CARE Condition: Fair Instructions (If sedation given, give patient instructions): Depression (ED) Additional Instructions: Please follow up with community mental health. Please return to the emergency department with any worsening or changing symptoms. Referrals: Nehemiah Bedoya DO [Primary Care Provider] - 1-2 days
[2022-05-14 04:14] VITALS: RESP 20
[2022-05-14 04:29] LABS: Amphetamine Screen,Urine Not Detected (NotDetected); Barbiturate Screen,Urine Not Detected (NotDetected); Benzodiazepines Screen,Urine Not Detected (NotDetected); Cocaine Screen,Urine Not Detected (NotDetected); Methadone Screen, Urine Not Detected (NotDetected); Opiate Screen,Urine Not Detected (NotDetected); Oxycodone Screen, Urine Not Detected (NotDetected); Phencyclidine Screen,Urine Not Detected (NotDetected); Tricyclic Antidepressant,Urine Not Detected (NotDetected); Urn Cannabinoid Scrn Detected (NotDetected)
[2022-05-14 06:32] VITALS: BP 119/72; PULSE 86; TEMP 98
== END 2022-05-14 09:56 | disposition home or self-care (01) ==
LOC: EC 22:49
DX: F32.A Depression, unspecified (principal); F12.90 Cannabis use, unspecified, uncomplicated; E78.5 Hyperlipidemia, unspecified; I10 Essential (primary) hypertension; F17.200 Nicotine dependence, unspecified, uncomplicated; Z79.899 Other long term (current) drug therapy; Z88.8 Allergy status to other drugs, medicaments and biological substances
CPT/HCPCS: 80306; 82075; 99284

== ENCOUNTER → 2022-06-28 | Outpatient (CLI) | payer OTHER ==
--- NOTE | 2022-06-29 09:34 | US ---
EXAMINATION TYPE: US kidneys/renal and bladder DATE OF EXAM: 06/28/2022 COMPARISON: None CLINICAL HISTORY: 41-year-old male [id number] AND PELVIC SWELLING, MASS AND LUMP, UNSP SITE. Abdo vasquez swelling. TECHNIQUE: Multiple sonographic images of the kidneys and bladder are obtained. FINDINGS: EXAM MEASUREMENTS: Right Kidney: 10.6 x 5.7 x 3.7 cm Left Kidney: 11.3 x 4.8 x 5.4 cm Right Kidney: No hydronephrosis or masses seen Left Kidney: No hydronephrosis or masses seen Bladder: Appears anechoic. Bilateral Jets seen: Yes IMPRESSION: No hydronephrosis. No specific sonographic abnormality seen of the kidneys or bladder.
== END | disposition home or self-care (01) ==
LOC: RADUSWWP 16:11
PROVIDERS: ATTEND Urology
DX: R19.09 Other intra-abdominal and pelvic swelling, mass and lump (principal)
CPT/HCPCS: 76770

== ENCOUNTER → 2022-08-22 | Outpatient (CLI) | payer OTHER | END | disposition home or self-care (01) | LOC: LABPAT 09:14 | PROVIDERS: ATTEND Orthopaedic Surgery | DX: Z01.812 Encounter for preprocedural laboratory examination (principal); Z22.322 Carrier or suspected carrier of Methicillin resistant Staphylococcus aureus; M47.812 Spondylosis without myelopathy or radiculopathy, cervical region; M48.02 Spinal stenosis, cervical region | CPT/HCPCS: 87070 ==

== ENCOUNTER 2022-08-27 05:42 | Inpatient (IN) | payer OTHER ==
[2022-08-22 16:04] VITALS: BMI 20.7
--- NOTE | 2022-08-26 09:01 | P.HPOR ---
History of Present Illness H&P Date: 08/22/22 .D:Date: 08/22/22 : 08:36am .T:Title: [facility] History and Physical Date of :80 Age: 41 year Height: 5'9" Weight: 135 lbs BP:123/80 BMI: 19.94 kg/m2 Occupation: Unemployed VAS: 10 CHIEF COMPLAINT: Recheck cervical pain DOI:Chronic DOS: None Duration of current treatment regiment: >1 year HISTORY: Xrays No new xrays taken in today's visit Trauma or injury No Work-Related No Pain description aching, sharp. Location medial diffuse Activity Modification yes , unable to perform bending/twisting motions regarding the neck. Overall daily functionality is very limited. Hand Dominance right TREATMENTS COMPLETED: 6 weeks of PT completed? Month and Year of last PT date? 2020 Yes How many sessions? 12 Did it help? No Physician recommended home exercise completed? Duration of HEP course: Current yes Patient has trialed the physician directed home exercise program for (without) relief of their symptoms. Medications yes List: Mobic 15mg, Gabapentin, and Naproxen all with mild relief of his symptoms. Alternative interventions Chiropractic: No Massage therapy: No R.I.C.E: No Brace: No Injections Yes (cervical HAO, last a couple months ago) How many? 3+ Did they help? No RFA: No SUBJECTIVE: Mr. Amador returns to the office for a recheck of their cervical spine and to review the planned cervical (C4-C7) ACDF. Patient reports no improvements to his symptoms since the time of the last appointment. The patient continues to complain of severe posterior cervical pain radiating into the left upper extremity. Furthermore the patient notes that Overall the patient has seen a progressive increase in symptoms since their onset. Mr. Amador symptoms are exacerbated with flexion/extension/twisting of the neck along with use of the bilateral upper extremities, due to this they notes that it is increasingly difficult for Mr. Amador to complete many of their daily tasks. Patient is having severe sleep disturbances as well due to their ongoing pain and associat ed symptoms. Regarding treatments, the patient has previously trialed all abovementioned conservative modalities without any relief of his symptoms. Patient denies trialing any other modalities at this time. For their symptoms, the patient has been taking Mobic without any relief. Otherwise the patient denies any f/c/sob/cp, no incision concerns, no bladder or bowel retention/incontinence, no perineal numbness/tingling, and ambulates independently. HISTORY: Mr. Amador returns to the office on 06/14/2022 for a recheck of their cervical spine. Patient reports continued cervical pain ongoing for many years. In addition to their cervicalpain, they do report that it radiates into the left upper extremity. Overall the patient has seen a progressive increase in symptoms since their onset. Mr. Amador symptoms are exacerbated with most daily ac tivities involving standing and ambulation, due to this they notes that it is increasingly difficult for Mr. Amador to complete many of their daily tasks. Patient is having severe sleep disturbances as well due to their ongoing pain and associated symptoms. Regarding treatments, the patient has previously trialed all abovementioned treatment modalities without relief of her symptoms. Patient denies trialing any other modalities at this time. For their symptoms, the patient has been taking Mobic 15mg, Gabapentin, and Naproxen all without relief of his symptoms. Otherwise the patient denies any f/c/sob/cp, no incision concerns, no bladder or bowel retention/incontinence, no perineal numbness/tingling, and ambulates independently. Mr. Amador was last seen on 07/18/2021 regarding his cervical neck. Since the time of the last appointment he denies that his symptoms have improved. Patient reports that he did not get the RFA ordered at the time of the last appointment. Aside from this he did complete a series of three HAO injections into the cervical spine but notes that this only exacerbated his symptoms. He does report some mild improvements with the use of Gabapentin and Naproxen with mild, but temporary, improvements. Regarding his symptoms he does feel that they have worsened since the time of the last appointment. Specifically his left upper extremity radiculopathic symptoms have worsened significantly. Due to this he notes significant sleep disturbances. Overall he feels that his symptoms are severely limiting his daily functionality. Mr. Amador was last seen on 05/18/2021 regarding Patient last presented for a follow up evaluation of his cervical spine pain. To review, Patient noted pain that radiates down his left upper extremity. Patient noted numbness in his left arm. He continued with physical therapy and notes some temporary improvement. Patient does have night time symptoms. He takes Naproxen. He ambulated independently. At his prior appointment appointment on 12/29/2020 was scheduled for RFA cervical spine. He was also scheduled for presurgical planning CT scan. Patient and I discussed a future fusion. He was advised to visit his primary care physician for tobacco cessation. He may return to physical therapy and continue with home exercises. Patient noted that on 05/18/2021 he was unchanged from his previous visit on 12/29/2020 and reviewed the results of his pre-operative CT scan of the cervical region of the spine. Patient noted that there was no prior trauma to indicate the exact onset of his pain. Additionally he denied any previous diagnosis of rheumatoid arthritis. Regarding his pain, he notes that it is severe and does radiate down into his left upper extremity. He was otherwise well. The patients' past social, medical, family, surgical history, as well as review of systems, have been reviewed. Please refer to the Neurosurgery History and Physical form that has been scanned in to our electronic medical record system. 16 points review of systems completed and as stated in HPI, all other systems reviewed are negative. Social History: Reviewed, see appropriate section of the chart for details. P3 Social History: Smoking: former smoker P3 Alcohol: rare alcohol P3 Family History: Reviewed, see appropriate section of the chart for details. P2 Past Medical History: Reviewed, see appropriate section of the chart for details. P1 Current Medications: Rx: blood pressure medication , Ref: 0 Rx: water pill , Ref: 0 Rx: meloxicam 15 mg tablet Ref: 0 PHYSICAL EXAMINATION: General: Awake, alert, appropriate for age, in no acute distress. HEENT: No unusual neck masses around region of lateral neck triangle, thyroid, supraclavicular groove Heart: Regular rate and rhythm, normal S1, S2 and no murmur/gallop. Lungs: Clear to auscultation bilaterally with no use of accessory muscles. Extremities: Skin warm and dry without acute lesions, coloration, temperature, skin intact, no tenderness or erythema Integument: Hairy patches: Absent Dorsal skin dimples: Absent Cafe au lait spots: Absent Surgical incisions: No Palpation: Please see Pain drawing on Intake sheet for further detail. Midline spinal tenderness: No E6 Paralumbar tenderness: No E6 Parathoracic tenderness: No E6 Buttocks tenderness: No E6 Special findings: No POSTURAL and MUSCULO-SKELETAL EVALUATION: Coronal Balance: NEUTRAL Recumbent testing: Patient is able to lay flat on back Sagittal Balance: NEUTRAL Shoulder Profile: LEVEL Pelvic Girdle: LEVEL Neck ROM: RESTRICTED Lumbar ROM: UNRESTRICTED Shoulder ROM: Symmetrical Hip ROM: Symmetrical Knee ROM: Symmetrical Hands: Normal appearance, symmetrical Feet: Normal appearance, Symmetrical VASCULAR STATUS : LEFT RIGHT Wrist Pulses INTACT INTACT Pedal Pulses (Dors. pedis & post.tibialis) INTACT INTACT Color NORMAL NORMAL Edema Absent Absent NEUROLOGIC EXAMINATION: Mental Status:Awake and alert, fully oriented, with normal attention, concentration and memory, and fluent, appropriate speech. Cranial Nerves: I: Olfactory not tested. II: Visual acuity normal, no visual field deficit noted with confrontation. III,IV: Normal pupillary reflexes & intact extraocular movements without nystagmus. V,: Intact symmetrical facial sensation. VII: Intact symmetrical facial motor movement VIII: Hearing intact. IX,X: Intact gag, swallow, & normal voice. XI: Sternocleidomastoid, trapezius function intact. XII: Tongue midline with normal movements. L'hermitte's Sign: Negative / absent Spurling'Sign: Absent bilaterally. Cubital percussion test: Absent bilaterally. Michael-Tinel sign - Carpal region: Absent bilaterally. Straight Leg Raising: Absent bilaterally. Crossed straight leg raise: negative O8 MOTOR EXAM (0-5/5, N/T) STRENGTH RIGHT LEFT Shoulder Abd (not part of the RAFAELA score) 4 5 Elbow Flexors 5 5 Elbow Extensor 5 4 Wrist Dorsiflexors 5 5 Finger Abductor 5 5 Flag Maker 4 4+ Hip Flexor (Not part of RAFAELA Motor score) 5 5 Knee Flexor 5 5 Knee Extensor 5 5 Ankle dorsiflexor 5 5 Ankle plantarflexion 5 5 Extensor hallucis 5 5 REFLEXES(0-4/2, NT) RIGHT LEFT Upper Extremities 3 2 Lower Extremities 2 2 Pathological Reflexes RIGHT LEFT Jnoes's Absent Absent Clonus Absent Absent Babinski Absent Absent # Indicates mechanical impairment Muscle appearance: Symmetrical, without signs of atrophy or dystrophy. Sensory system (0-4, N/T) Test type RU AVERY RL LL Joint-Position 2 2 2 2 Vibration 2 2 2 2 Pain & LT sense 2 2 2 2 Dermatomal Deficit: C4-5 C6-7 None None Gait and Functional Evaluation: Ambulatory aids: Independent Romberg's test: Intact bilaterally Toe heel walk / heel-toe walk intact while maintaining satisfactory balance? yes Squatting/straightening w/o assistance to a min of 60 degree knee flexion? yes Single leg stance: intact Trendelenburg sign negative bilaterally Hand and finger dexterity intact bilaterally? yes Disdiadochokinesis examination negative bilaterally? yes RADIOGRAPHIC STUDIES : XRay Cervical multiview (Lateral, Flexion, Extension, AP, Oblique) 5 views taken on 11/02/2020 at [facility] of Cervical Spine: -Severe spondylosis throughout the cervical spine is noted with flattening of the normal cervical lordosis. There is facet arthrosis which is noted as well. No overt instability occipital cervical C1 [address] scan[facility] at [facility] from 04/26/2021 of Cervical Spine: This reveals severe spondylosis C4 to C7. There is vacuum disc phenomena. There are anterior osteophytes they are overgrown in this area. Facet arthrosis is noted throughout. There stenosis related to the bony overgrowth posteriorly. There is no OPLL at this time. There is beginning stages of OA LL. No fracture or dislocations noted occipital cervical C1 2 joints appear stable. MRI scan obtained at [facility] from12/25/2020 of Cervical Spine: - This demonstrates severe spondylosis from C4-C7. There is moderate to severe spondylosis at C4-C5 as well as C6-C7. There is also moderate to severe stenosis at C4 as well as C6-C7. There is vertebral body changes suzanna to modic changes throughout. There is flattening of the C5 vertebral body. There are large osteophytic formations anteriorly. There is no myomalacia. There are no fractur es or dislocations noted. IMPRESSION: It was my pleasure to have seen and examined Sanchez. I reviewed the patient's clinical syndrome, physical findings, and imaging studies during the appointment today. It is my impression that the patient has a diagnosis of. 1. 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 Left upper extremity radiculopathy 3. Cervical spondylotic myelopathy I outlined the natural course history without intervention and various inter ventional options. PLAN: Based on my findings I suggest the following course of action: -I discussed treatment options with the patient, including operative and non- operative options, and they have elected to proceed with the following surgical procedure: cervical (C4-C7) ACDF The indications, risks, benefits, and alternatives to surgery were discussed with the patient and family at length. Specifically (but not limited to) the risks of infection, stiffness, recurrence of symptoms, need for revision surgery, local numbness, neurovascular injury, and blood clots were discussed. The patient's questions were answered. The decision to proceed was made. Consent will be obtained for the procedure. -Advised patient to continue with supplements, health maintenance, and home exercise programs. Patient expressed understanding and will continue with these modalities. - SMOKING CESSATION FOLLOW UP The patient and I have discussed their current Stop Smoking plan and how the plan has been going. They state they have stopped since 05/2022 and that it is going well. They state they have noticed the effects of their plan and are happy with their progress. We discussed again their plan as well as the benefits of quitting. We have adjusted their plan as necessary, and the patient is comfortable with this. We will check back with them on our next visit to see how they are doing with this. Time Spent: 3-10 min Spine Surgery Risk Review Mr. Amador is presenting for evaluation of cervical pain. It was my pleasure to have seen and examined Mr. Amador. In our visit today we have had a chance to go over subjective complaints, physical examination findings and treatments including the natural course history without intervention and various interventional options. The patients imaging demonstrates: XRay Cervical multiview (Lateral, Flexion, Extension, AP, Oblique) 5 views taken on 11/02/2020 at [facility] of Cervical Spine: -Severe spondylosis throughout the cervical spine is noted with flattening of the normal cervical lordosis. There is facet arthrosis which is noted as well. No overt instability occipital cervical C1 [address] scanobtained at [facility] from 04/26/2021 of Cervical Spine: This reveals severe spondylosis C4 to C7. There is vacuum disc phenomena. There are anterior osteophytes they are overgrown in this area. Facet arthrosis is noted throughout. There stenosis related to the bony overgrowth posteriorly. There is no OPLL at this time. There is beginning stages of OA LL. No fracture or dislocations noted occipital cervical C1 2 joints appear stable. MRI scan obtained at [facility] from12/25/2020 of Cervical Spine: - This demonstrates severe spondylosis from C4-C7. There is moderate to severe spondylosis at C4-C5 as well as C6-C7. There is also moderate to severe stenosis at C4 as well as C6-C7. There is vertebral body changes suzanna to modic changes throughout. There is flattening of the C5 vertebral body. There are large osteophytic formations anteriorly. There is no myomalacia. There are no fractures or dislocations noted. On physical exam, Mr. Amador demonstrates significantly restricted cervical ROM due to pain. Patient does also demonstrate bilateral upper extremity radiculopathy and weakness. He is also hyperreflexic with regards to his right upper extremity along with a C4-C5 dermatomal deficit. He demonstrates left upper extremity C6-C7 dermatomal deficits as well. I have explained to the patient that as their condition progresses it will cause further neurological deficits and eventual paralysis. Based on the patients imaging, physical exam, and the rapid progression and disabling nature of their symptoms, at this time I recommend surgery in the form or a: cervical (C4-C7) ACDF. I discussed the risk and benefits of this procedure at length with Mr. Amador. The patient and his significant other agreed to considered pursuing the procedure abovementioned. Prior to surgery, she should follow up with her PCP (Cardio, ID, IM etc) for clearance. Questions were invited and answered, and the patient wishes to proceed as outlined below. Currently, I am recommendin.cervical (C4-C7) ACDF 2.Follow up with PCP for surgical clearance 3.Review of surgical risks and benefits as well as an educational packet on the proposed surgical procedure. Risks: All surgical procedures come with inherent risks, including those related to positioning, anesthesia, intraoperative findings, and postoperative complications. It is important to understand that surgery does not come with any guarantee of a successful outcome as complications and adverse events are always possible. The patient was given a handout in office today discussing the surgical procedure and risks associated with the intervention, both of which were discussed with the patient. These risks include but are not limited to the following: * Experiencing same, different or even worse symptoms in back, neck, arms, or legs compared to before surgery. Requiring further surgery or other forms of treatment presently or at some time in the future at same or other levels of the intended spine surgery. On an extreme but fortunately relatively rare basis severe complication such as blindness, stroke, heart attack, temporary and/or permanent nerve injury, paralysis, coma, or may occur, sometimes without known explanation. Surgical complications may include but are not limited to risk of infection, fluid accumulation in the surgical dissection site, including a seroma or hematoma, that requires additional surgery, wound drainage, bleeding, new numbness or weakness, vision changes/loss, spinal fluid leakage, non-healing and/or infected incision, headaches, difficulty or inability to swallow, hoarseness, hemopneumothorax, pneumothorax, impotence, retrograde ejaculation, vaginal dryness; injury to nerves, spinal cord, blood vessels, lymphatics or other vital organs (i.e., bowel injury, injury to the great vessels); heterotopic bone formation; complications related to the hardware such as screws, rods, cages including misplaced hardware, device failure, instrumentation at the wrong spine level, hardware fracture/breakage, or hardware loosening; vertebral failure of the spinal column above or below the newly placed hardware; retained surgical instrumentations or devices and the need for further surgery. * Medical risks of the planned spine surgery include but are not limited to generalized Infections to the whole body or local areas outside of the surgical site (sepsis), heart attack, bleeding, anaphylaxis, meningitis, seizure, epilepsy, hearing loss, burn dumont, laceration of the head or other areas of the body, bruising, hypersensitivity of the skin, bladder over distension; allergic reaction; shoulder injury related to positioning; fat, blood and air clots to other areas of the body like heart, lungs, brain; failure of internal organs such as lungs, kidneys, liver and excessive blee ding. If blood transfusions are necessary, note that transfusions may cause intolerance reactions such as anaphylaxis or other complex reactions. Despite best efforts, the results of spine surgery might not heal in terms of bone, soft tissues such as skin, fascia, ligaments, and joints. Additionally, in order to achieve best possible results, spine surgery may be carried out beyond the initially planned levels and involve decompression, fusion including insertion of hardware at levels other than the original intended area of surgical interest change some portions of the procedure in order to ensure the best possible outcomes. With spine surgery and spinal fusion, there are different off label uses of instrumentation (devices, implants and hardware) as well as biological substances (bone morphogenic proteins, demineralized bone matrix) as well as using extra bone from allograft sources (i.e. cadaver bone) or autograft (iliac crest bone, ribs, or the spine itself). The patient has been given information about these practices and their inherent risks and benefits. [facility] is an educational center that serves as a training facility for neurosurgical and orthopedic EDUCATION INSTRUCTOR and Nursing students. Physician assistants are medically trained surgical providers who function in the outpatient, inpatient, and operating room setting under the direct supervision of the attending surgeon. [facility] has multiple operating rooms with single and overlapping rooms running daily. They currently function under the required guidelines as produced by the [facility] Finance Committee with regards to the overlapping rooms and will continue to comply with changes to this policy as they occur. The requirements include and are complied with as follows: (1) the critical portions of the overlapping rooms will not occur at the same time, (2) the attending physician will be physically present during the critical portions of the procedure and immediately available during the entire case, and (3) a back-up attending is designated should the primary attending not be immediately available. The patient has had a chance to review all the listed information, has been given print outs detailing this information, and has had all his/her questions answered to their satisfaction. It was my pleasure to have seen and examined Mr. Amador. In our visit today we have had a chance to go over my understanding of our patient's current condition, the natural course history without intervention and various interventional options. Questions were invited and answered, and the patient wishes to proceed as outlined above. I have seen and examined the patient for 25 minutes and we have spent more than 50% of the time in repeat and detailed counseling about the patient's condition, its natural course history with out and as much as can be predicted with surgery and re-review of various surgical treatment options. In conclusion, Mr. Amador and his spouse requested we proceed with the above suggested surgery and are willing to accept risks and limitations of the suggested surgery as nature of the disease process and our best attempts at treatment for the condition Thank you again for allowing us to be part of your patient's care. Please don't hesitate to contact me if you have any further questions. Signed and authenticated by: [employer] P:\\\\ppart\\\\[id number]\\\\[id number] \\d Follow- up: 2 weeks post-op Patient Education: (Informational booklet, instructions, etc) given at today's appointment: Yes .ED:Patient Education: Y Plan at next visit: pre-operative review Medications Reviewed: YES In our visit today Mr. Amador and I have had a chance to go over my understanding of the patient's current condition, the natural course history without intervention and various interventional options. Questions were invited and answered, and the patient wishes to proceed as outlined above. I will be sure to keep you updated afterMr. Amador returns here for further follow-up. Thank you again for your referral. Please do not hesitate to contact me if you have any further questions. Signed and authenticated by: Silverio Valdes [facility] [address] [place] [address] This message is confidential, intended only for the named recipient(s) and may contain information that is privileged or exempt from disclosure under applicable law. If you are not the intended recipient(s), you are notified that the dissemination, distribution or copying of this information is strictly prohibited. If you received this message in error, please notify the sender then delete this message. Patient verbalizes understanding of the information discussed. The above note was initiated by Silverio Caballero, physician recording housekeeper/laundry assistant for Dr. Silverio Caldera. This note has been reviewed by Dr. Caldera, who has made his personal changes and impressions for this document. # SIGNED BY Silverio Caldera (GOO)08/26/2022 08:52AM Past Medical History Past Medical History: Hyperlipidemia, Hypertension Additional Past Medical History / Comment(s): Pericarditis, bowel obstruction, chronic neck and shoulder pain. 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 PT HAS CUT HIS BEER CONSUMPTION DOWN TO 2-3 24 OZ CANS A FEW TIMES A WEEK Past Drug Use History: Marijuana Additional Drug Use History / Comment(s): PT STATES HE HAS CUT HIS MARIJUANA USE DOWN - Past Family History Mother Family Medical History: No Reported History Additional Family Medical History / Comment(s): Father Family Medical History: Coronary Artery Disease (CAD) Medications and Allergies Home Medications Medication Instructions Recorded Confirmed Type hydroCHLOROthiazide 25 mg PO HS 07/26/19 08/22/22 History amLODIPine [Norvasc] 10 mg PO QAM 07/10/20 08/22/22 History Omeprazole [PriLOSEC] 20 mg PO AC-BRKFST 07/05/21 08/22/22 History Ergocalciferol [Vitamin D2 (1250 2,000 units PO SA 05/14/22 08/22/22 History Mcg = 16366 Iu)] Atorvastatin [Lipitor] 40 mg PO HS 08/22/22 08/22/22 History Allergies Allergy/AdvReac Type Severity Reaction Status Date / Time lisinopril Allergy Rash/Hives, Verified 08/22/22 15:42 SWELLING OF FACE Physical Examination Osteopathic Statement: *. No significant issues noted on an osteopathic structural exam other than those noted in the History and Physical/Consult.
[~2022-08-27 05:42] MED LIST changes: +ACETAMINOPHEN TAB 500 MG TAB PO PRN; +GABAPENTIN 300 MG CAP PO PRN; -LACTATED RINGERS 1,000 ML IV SCH; +LIDOCAINE 1% (10MG/ML) FOR IV START INTRADERMA PRN; +MIDAZOLAM 2 MG/2 ML VIAL IV PRN; +ONDANSETRON 4 MG/2 ML VIAL IVP PRN; +TRANEXAMIC ACID IN NACL,ISO-OS 1,000 MG in SALINE 1 100ML.BAG IVPB PRN
[2022-08-27] MEDS: LACTATED RINGERS 1,000 ML IV SCH ×3 (06:52→07:31)
[2022-08-27] MEDS ORDERED: HYDROmorphone 0.5 MG/0.5 ML SYRINGE IVP PRN ×2 (07:00→10:30)
[2022-08-27] MEDS: ONDANSETRON 4 MG/2 ML VIAL IVP ONE ×2 (07:18→12:15)
[2022-08-27] MEDS: DEXAMETHASONE SOD PHOSPHATE 4 MG/ML 1 ML VIAL IV ONE ×2 (07:21→12:15)
[2022-08-27] MEDS ORDERED: PROPOFOL 10 MG/ML 20 ML VIAL IV ONE (07:28)
[2022-08-27] MEDS ORDERED: LIDOCAINE 2% INJ 20 MG/ML (2 ML VIAL) ONE (07:28)
[2022-08-27] MEDS ORDERED: MIDAZOLAM 2 MG/2 ML VIAL ONE (07:28)
[2022-08-27] MEDS ORDERED: ROCURONIUM 10 MG/ML (5 ML VIAL) IV ONE (07:28)
[2022-08-27] MEDS ORDERED: fentaNYL (PF) 50 MCG/ML 2 ML AMP ONE (07:28)
[2022-08-27] MEDS ORDERED: HYDROmorphone (PF) 1 MG/ML ONE (07:28)
[2022-08-27] MEDS ORDERED: TRANEXAMIC ACID IN NACL,ISO-OS 1,000 MG/100 ML BAG ONE (07:28)
[2022-08-27] MEDS ORDERED: KETAMINE 10 MG/ML 20 ML VIAL ONE (07:28)
[2022-08-27] MEDS ORDERED: SUCCINYLCHOLINE CHLORIDE 200 MG/10 ML VIAL IV ONE (07:28)
[2022-08-27] MEDS ORDERED: GELATIN SPONGE,ABSORB (LARGE) 1 EACH SPONGE MISCELLANE ONE (08:26)
[2022-08-27] MEDS ORDERED: THROMBIN (BOVINE) 5,000 UNIT VIAL TOPICAL ONE (08:26)
--- NOTE | 2022-08-27 10:19 | XR ---
Intraoperative/procedural fluoroscopic services were provided for anterior cervical fusion from C4 th rough C7. Hardware appears intact. Total fluoroscopy time is 42 seconds. With a total of 4 submitted images to PACS. Please see the operative note for further details.
[2022-08-27] MEDS ORDERED: MAGNESIUM HYDROXIDE 2,400 MG/10 ML CUP PO PRN (10:30)
[2022-08-27] MEDS ORDERED: CYCLOBENZAPRINE 5 MG TAB PO PRN (10:30)
[2022-08-27] MEDS ORDERED: HYDROcodone/APAP 5-325MG 1 EACH TAB PO PRN (10:30)
[2022-08-27] MEDS ORDERED: HYDROmorphone 1 MG/ML 1 ML SYRINGE IVP PRN (10:30)
[2022-08-27] MEDS ORDERED: ONDANSETRON 4 MG/2 ML VIAL IVP PRN (10:30)
[2022-08-27] MEDS ORDERED: SENNOSIDES-DOCUSATE SODIUM 1 EACH TAB PO PRN (10:30)
[2022-08-27] MEDS ORDERED: polyethylene glycoL 3350 17 GM POWD.PACK PO PRN (10:36)
[2022-08-27] MEDS: SODIUM CHLORIDE 0.9% 1,000 ML IV SCH (13:12)
--- NOTE | 2022-08-27 14:42 | CT ---
EXAMINATION TYPE: CT cervical spine wo con DATE OF EXAM: 08/27/2022 COMPARISON: Cervical spine CT April 26, 2021. Cervical spine intraoperative x-rays earlier today HISTORY: s/p C4-C7 ACDF CT DLP: 386.20 mGycm. Automated Exposure Control for Dose Reduction was Utilized. TECHNIQUE: CT scan of the cervical spine is obtained without contrast, axial images are obtained, sa gittal and coronal reformatted images are also reviewed. FINDINGS: Cervical spine is visualized in its entirety from C1 through upper thoracic levels, and red emonstrates a dextroconvex scoliosis centered in the upper thoracic spine. There is new anterior fusi on plate with metallic disc material C4-C7 levels. Alignment stable and satisfactory on sagittal imag es. Persistent mild disc space narrowing and moderate anterior spurring at C3-C4 level. Vertebral bod y heights satisfactory above and below surgical levels. There is new percutaneous right-sided surgica l drain terminating in the right neck at C4 level. Extensive right neck subcutaneous and deeper air i s noted. There is small amount of air posterior to the cervical vertebra likely within the anterior e pidural space. Small amount of free air throughout the prevertebral region extending into anterior dobbs perior mediastinum is seen. Bilateral screw and disc position appear satisfactory in position. Lung apices are clear without pneu mothorax. Thyroid gland remains within normal limits. IMPRESSION: Postsurgical changes to C4-C7 level with satisfactory alignment. Hardware positioning is felt satisfactory.
--- NOTE | 2022-08-27 15:19 | P.CONS ---
History of Present Illness - Reason for Consult Consult date: 08/27/22 Medical management postop - History of Present Illness This is a 42-year-old male who was recently admitted under orthopedic services and underwent C4-C7 cervical intervention for his continued chronic cervical pain. Patient follows with Dr. Karyna Bedoya in the outpatient setting for past medical history of hyperlipidemia, hypertension, chronic neck and shoulder pain, depression. Patient reports he smokes daily and does drink a few times a week and also admits to using marijuana for his anxiety. Follow-up CT after surgery showed postsurgical changes of the C4-C7 level with satisfactory alignment and hardware positioning is felt to be satisfactory. No labs to my knowledge will follow-up with a.m. labs. Recommend to continue with pain management and DVT prophylaxis per orthopedics. All home medications have been resumed. Patient denies chest pain or shortness of breath. Patient is afebrile. Vital signs are currently stable and have resumed home blood pressure medication to start tomorrow and patient is 99% on room air. Review Of Systems: Constitutional: No fever, no chills, no night sweats. No weight change. No weakness, fatigue or lethargy. No daytime sleepiness. EENT: No headache. No blurred vision or double vision, no loss of vision. No loss of Hearing, no ringing in the ears, no dizziness. No nasal drainage or congestion. No epistaxis. No sore throat. Lungs: No shortness of breath, cough, no sputum production. No wheezing. Cardiovascular: No chest pain, no lower extremity edema. No palpitations. No paroxysmal nocturnal dyspnea. No orthopnea. No lightheadedness or dizziness. No syncopal episodes. Abdominal: No abdominal pain. No nausea, vomiting. No diarrhea. No constipation. No bloody or tarry stools.. No loss of appetite. Genitourinary: No dysuria, increased frequency, urgency. No urinary retention. Musculoskeletal: No myalgias. No muscle weakness, no gait dysfunction, no frequent falls. No back pain. Reports to neck pain. Integumentary: No wounds, no lesions. No rash or pruritus. No unusual bruising. No change in hair or nails. Neurologic: No aphasia. No facial droop. No change in mentation. No head injury. No headache. No paralysis. No paresthesia. Psychiatric: No depression. No anxiety. No mood swings. Endocrine: No abnormal blood sugars. No weight change. No excessive sweating or thirst. No cold intolerance. .. PHYSICAL EXAMINATION: GENERAL: The patient is alert and oriented x4, Well developed, well nourished. Thin built male HEENT: Pupils are round and equally reacting to light. EOMI. no scleral icterus. No conjunctival pallor. Normocephalic, atraumatic. No pharyngeal erythema. No thyromegaly. Soft Cervical collar noted CARDIOVASCULAR: S1 and S2 muffled PULMONARY: diminished breath sounds bilaterally with no wheezing or rhonchi noted. ABDOMEN: soft. Nontender on exam. non-distended, normoactive bowel sounds. No palpable organomegaly. MUSCULOSKELETAL: No joint swelling or deformity. EXTREMITIES: No cyanosis, clubbing, or pedal edema. NEUROLOGICAL: Gross neurological examination did not reveal any focal deficits. SKIN: No rashes. Assessment: Chronic neck pain post C4-7 anterior cervical discectomy and fusion Hypertension Hyperlipidemia History of depression Continued ongoing nicotine abuse THC use GI prophylaxis DVT prophylaxis Full code Plan: Recommend to continue with current medications and management per orthopedic services. Patient is post C4-7 cervical discectomy with fusion currently sitting up in the bed with a soft collar noted. Patient reports to feeling well and vital signs are stable. Home medications reviewed and resumed for a.m. Encouraged increased activity with orthopedic restrictions in mind. Recommend continue with pain management per primary service. Diet has been resumed and will continue. PT/OT therapy to evaluate the patient. Recommend incentive s pirometer at least 10 times every hour while awake. Recommend a.m. labs which have been ordered. We will continue to follow with orthopedics during hospitalization. Thank you kindly for this consultation. The impression and plan of care has been dictated by Renetta Mcgrath, nurse pr actitioner as directed. Dr. Jessica SMITH I have performed a history and examination and MDM of this patient, discussed the same with the dictator, and agree with the dictator's assessment and plan as written ,documented as a scribe. Based on total visit time, I have performed more than 50% of the visit. Any additional findings or plans will be noted. Past Medical History Past Medical History: Hyperlipidemia, Hypertension Additional Past Medical History / Comment(s): Pericarditis, bowel obstruction, chronic neck and shoulder pain. 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 PT HAS CUT HIS BEER CONSUMPTION DOWN TO 2-3 24 OZ CANS A FEW TIMES A WEEK Past Drug Use History: Marijuana Additional Drug Use History / Comment(s): PT STATES HE HAS CUT HIS MARIJUANA USE DOWN - Past Family History Mother Family Medical History: No Reported History Additional Family Medical History / Comment(s): Father Family Medical History: Coronary Artery Disease (CAD) Medications and Allergies Home Medications Medication Instructions Recorded Confirmed Type hydroCHLOROthiazide 25 mg PO HS 07/26/19 08/27/22 History amLODIPine [Norvasc] 10 mg PO QAM 07/10/20 08/27/22 History Omeprazole [PriLOSEC] 20 mg PO AC-BRKFST 07/05/21 08/27/22 History Ergocalciferol [Vitamin D2 (1250 2,000 units PO SA 05/14/22 08/27/22 History Mcg = 01234 Iu)] Atorvastatin [Lipitor] 40 mg PO HS 08/22/22 08/27/22 History Allergies Allergy/AdvReac Type Severity Reaction Status Date / Time lisinopril Allergy Rash/Hives, Verified 08/27/22 06:23 SWELLING OF FACE Physical Exam Vitals: Vital Signs Temp Pulse Pulse Resp BP BP Pulse Ox 08/27/22 12:30 81 14 144/83 100 08/27/22 11:45 84 16 140/81 99 08/27/22 11:30 85 16 149/84 98 08/27/22 11:15 83 18 145/80 99 08/27/22 11:00 82 16 147/82 99 08/27/22 10:42 98.7 F 105 H 12 165/98 100 08/27/22 07:05 98.9 F 95 18 139/81 100 Intake and Output 08/26/22 08/27/22 08/27/22 22:59 06:59 14:59 Intake Total 1650 Output Total 1305 Balance 345 Intake: IV 1650 Output: Urine 1250 Estimated Blood Loss 55 Other: Voiding Method Urinal # Voids 1 Weight 61.6 kg 61.6 kg Results CBC & Chem 7: 08/27/22 06:48
[2022-08-27] MEDS: GABAPENTIN 300 MG CAP PO SCH ×2 (15:59→21:18)
[2022-08-27] MEDS: hydroCHLOROthiazide 25 MG TAB PO SCH (21:18)
[2022-08-27] MEDS: ATORVASTATIN 40 MG TAB PO SCH (21:18)
[2022-08-27] MEDS: HYDROcodone/APAP 10-325MG 1 EACH TAB PO PRN (23:40)
[2022-08-28] MEDS: HYDROcodone/APAP 10-325MG 1 EACH TAB PO PRN ×3 (08:29→20:33)
[2022-08-28] MEDS: SODIUM CHLORIDE 0.9% 1,000 ML IV SCH (08:29)
[2022-08-28] MEDS: amLODIPine 10 MG TAB PO SCH (08:29)
[2022-08-28] MEDS: PANTOPRAZOLE 40 MG TABLET PO SCH (08:29)
[2022-08-28] MEDS: GABAPENTIN 300 MG CAP PO SCH ×3 (08:29→21:41)
[2022-08-28] MEDS: LACTATED RINGERS 1,000 ML IV SCH (08:34)
--- NOTE | 2022-08-28 08:51 | P.OP ---
Date of Procedure: 08/27/22 Preoperative Diagnosis: 1. C4-7 spondylosis, severe with stenosis, severe 2. UE Radiculopathy 3. UE weakness 4. Mechanical neck pain Postoperative Diagnosis: 1. C4-7 spondylosis, severe with stenosis, severe 2. UE Radiculopathy 3. UE weakness 4. Mechanical neck pain Procedure(s) Performed: 1. C4-5, C5-6 and C6-7 anterior discectomy and fusion (49940, [id number]) 2. C4-5, C5-6 and C6-7 insertion of biomechanical device ([id number]) 3. C4-7 application of non integrated anterior C4-7 plate (86947) use of IONM Use of Microscope Implants: -Globus [place]ron 12 deg lordotic 9 mm cages -Globus anterior cervical low profile plate -iFactor -Autograft -Allograft Anesthesia: GETA Surgeon: Silverio Caldera Extension Professor #1: Latricia Patricio (Was present and assisted with all aspects of thec ase from positiong, to hardware, fusion, closure and dressina dn brace placement) Estimated Blood Loss (ml): 50 IV fluids (ml): 1,200 Urine output (ml): 330 Pathology: none sent Condition: stable Disposition: PACU Indications for Procedure: Mr. Amador is presenting for evaluation of cervical pain. It was my pleasure to have seen and examined Mr. Amador. In our visit today we have had a chance to go over subjective complaints, physical examination findings and treatments including the natural course history without intervention and various interventional options. The patients imaging demonstrates: XRay Cervical multiview (Lateral, Flexion, Extension, AP, Oblique) 5 views taken on 11/02/2020 at [facility] of Cervical Spine: -Severe spondylosis throughout the cervical spine is noted with flattening of the normal cervical lordosis. There is facet arthrosis which is noted as well. No overt instability occipital cervical C1 [address] [facility] of Cervical Spine: This reveals severe spondylosis C4 to C7. There is vacuum disc phenomena. There are anterior osteophytes they are overgrown in this area. Facet arthrosis is noted throughout. There stenosis related to the bony overgrowth posteriorly. There is no OPLL at this time. There is beginning stages of OA LL. No fracture or dislocations noted occipital cervical C1 2 joints appear stable. MRI scan obtained at [facility] from12/25/2020 of Cervical Spine: - This demonstrates severe spondylosis from C4-C7. There is moderate to severe spondylosis at C4-C5 as well as C6-C7. There is also moderate to severe stenosis at C4 as well as C6-C7. There is vertebral body changes suzanna to modic changes throughout. There is flattening of the C5 vertebral body. There are large osteophytic formations anteriorly. There is no myomalacia. There are no fractures or dislocations noted. On physical exam, Mr. Amador demonstrates significantly restricted cervical ROM due to pain. Patient does also demonstrate bilateral upper extremity radiculopathy and weakness. He is also hyperreflexic with regards to his right upper extremity along with a C4-C5 dermatomal deficit. He demonstrates left upper extremity C6-C7 dermatomal deficits as well. I have explained to the patient that as their condition progresses it will cause further neurological deficits and eventual paralysis. Based on the patients imaging, physical exam, and the rapid progression and disabling nature of their symptoms, at this time I recommend surgery in the form or a: cervical (C4-C7) ACDF. I discussed the risk and benefits of this procedure at length with Mr. Amador. The patient and his significant other agreed to considered pursuing the procedure abovementioned. Prior to surgery, she should follow up with her PCP (Cardio, ID, IM etc) for clearance. Questions were invited and answered, and the patient wishes to proceed as outlined below. Currently, I am recommendin.cervical (C4-C7) ACDF Description of Procedure: The patient was seen and examined in the preoperative area. All preoperative protocols were followed. Informed consent was obtained risks and benefits of the procedure were discussed at length. Risks including bleeding infection damage to the surrounding tissue and risk of reoperation were discussed with the patient. Risk of anesthesia up to and including was a discussed with the patient. These are outlined in the risk review. They were willing to accept these risks and all of the risks of surgery. The patient was given a weight- based dose of antibiotics in the form of 2 g Ancef. The patient was seen and evaluated by the anesthesia team who deemed them fit for surgery. The site was marked, the patient was willing to proceed with the procedure. The patient was transferred to the operative suite by the Department of anesthesia. They were then drifted off to sleep by the department anesthesia and GETA was performed. The patient tolerated this well. [Schmidt catheter was placed by nursing staff, atraumatically]. Once confirmation of lines and ventilation the patient was transferred to a flat top trios table supine. All bony prominences including wrists, elbows, axilla, chest, hips, and thighs, and feet were padded very well. Special attention was paid to the genitalia and these were padded accordingly. SCDs were placed on bilateral lower extremities and were connected. Arms were well padded and placed tucked at his side a well- padded thumbs up shoulder roll was placed and shoulders were gently taped to the table. Once in position, again we confirmed good ventilation capabilities and that lines were running appropriately. The patient's anterior cervical spine was then exposed. 1010s were placed outlining the incision site. Standard alcohol was used to clean the incision site and allowed to dry. C-arm was used to biomark the patient and confirm level for incision which was marked with a skin marker. Operative briefing was performed with all teams and everyone in agreement to proceed. The patient was then prepped and draped in a normal sterile fashion. Timeout was then performed and all parties were in agreement with the procedure to be performed. transverse skin incision was made on the right side of the neck over the previously by marked area. A standard Pressley-Ramos approach since her cervical spine was taken. Blunt dissection was taken down and interval was developed between the SCM and strap muscles. Midline structures were carefully mobilized and retractors were then placed. Anterior cervical spine was identified blunt probe was used to phyllis levels on lateral fluoroscopy and once levels were confirmed we proceeded. There were exuberant anterior osteophytes on the anterior portion of patient's cervical spine perform subperiosteal dissection of the longissimus muscles bilaterally and then the retractor was replaced deep to these. We performed osteophytectomy of the anterior cervical spine. We then placed Altus pins into C6 and C7 respectively and gentle distraction was taken out over this level. Anterior osteophyte was removed and then a complete discectomy was performed using high-speed bur curettes And Kerrison rongeur. Once the PLL was identified it was resected osteophytes posteriorly were removed with high-speed bur and performed bilateral foraminotomies and resection further of the disc herniation and PLL with Kerrison rongeurs. Meticulous hemostasis was then performed. We then sized the disc space under lateral fluoroscopy for an implant once the size was achieved and implant was selected. This was then impacted into place under lateral fluoroscopic guidance. Once in good position and was tested and was stable. We then removed the distraction and removed the [place] pin from C7 placing bone wax and voided and placed it into C5. We then repeated this process at C5 6 and C4-C5 performing complete discectomy at both levels complete decompression PLL resection and bilateral foraminotomies. Implant was selected and size placed under lateral fluoroscopic guidance intestine stable. We confirmed good decompression at each level we confirmed motors before and after placement of hardware at each level which were stable. We confirmed placement of hardware on AP and lateral fluoroscopy at each level. We then turned our attention the application of anterior plate which was separate from our antibodies. This plate would span from C4 through C7. Once size was selected it was secured to the vertebral bodies with screws bilateral screws were drilled at C7 first and nonverbal screws were placed here as well as C6. Variable screws were placed in C4 and C5 respectively we confirmed good placement of hardware in AP and lateral fluoroscopic imaging. All screws had good purchase and were locked into position. Using inspected the wound bed there were no injuries. We copiously irrigated the wound with normal sterile saline. Surgicel was placed deep within the wound along with the deep drain. We then proceeded with layered closure for subplatysmal layer which was closed with 3-0 Vicryl the subcu layer was closed with 3-0 Vicryl and subcuticular closed with 4-0 strata fix. The wound was then cleaned and dressed sterilely with skin glue allowed to dry and then an operative foam dressing drain sponge and Tegaderm. The patient was transferred back to their hospital bed atraumatically. [Drain continued to hold suction and were in good position]. Patient was then awakened and extubated by the department of anesthesia having tolerated the procedure very well with no complications. They were transferred to the postoperative care unit in stable condition.
--- NOTE | 2022-08-28 08:57 | P.PN ---
Subjective Progress Note Date: 08/28/22 Principal diagnosis: Cervical spondylosis with stenosis Patient seen and examined at bedside. Patient is resting in bed. He states he does have some soreness to his throat with no difficulty of swallowing. Patient feels his pain is managed on current regimen. He does report some muscle tightness in his shoulders, may use ice packs. Surgical dressing is clean dry and intact with YASMEEN drain present and patent. Encouraged patient to work with physical therapy today. Discussed discharge for tomorrow 08/29/2022. Patient verbalizes understanding. He currently denies any fever/chills, nausea/vomiting, or chest pain. Objective - Vital Signs Vital signs: Vital Signs Temp 98.5 F 08/28/22 05:20 Pulse 75 08/28/22 05:20 Resp 16 08/28/22 05:20 BP 131/82 08/28/22 05:20 Pulse Ox 98 08/28/22 05:20 FiO2 Intake & Output 08/27/22 08/28/22 08/28/22 18:59 06:59 18:59 Intake Total 1700 450 Output Total 1755 1000 Balance -55 -550 Weight 61.6 kg Intake: IV 1650 Intake, IV Titration 50 450 Amount Sodium Chloride 0.9% 1, 400 000 ml @ 50 mls/hr IV . Q20H [facility] Rx#:[id number] ceFAZolin 2 gm In Sodium 50 50 Chloride 0.9% 50 ml @ 100 mls/hr IVPB Q8HR LO Rx# :[id number] Output: Drainage 25 Anterior Neck 25 Urine 1675 1000 Estimated Blood Loss 55 Other: Voiding Method Urinal Urinal # Voids 1 - Exam Physical Examination General: The patient is awake and alert, in no acute distress Skin: Skin is warm and dry with no obvious rashes or lesions. Hairy patches absent, no dorsal skin dimples, no cafe au lait spots, and no surgical incisions. Eye: Pupils are equal, round and reactive to light, extra-ocular movements are intact; there is normal conjunctiva bilaterally. Neck: The neck is supple, there is no tenderness and ROM intact. Cardiovascular: There is a regular rate and rhythm. No murmur, rub or gallop is appreciated. Respiratory: Lungs are clear to auscultation, respirations are non-labored, breath sounds are equal. Gastrointestinal: Soft, non-distended, non-tender abdomen . Back: There is no tenderness to palpation in the midline, paralumbar, parathoracic or buttocks region. There is no obvious deformity . Musculoskeletal: ROM limited secondary to pain and stiffness from surgical procedure. Muscle strength in all major muscle groups in Bilateral upper extremities 4/5, bilateral lower extremities 5/5 Neurological: CN 2-12 intact. There are no obvious motor or sensory deficits. Movement and coordination equal and intact. Sensory exam to light touch intact C5-T1 and intact from L2-S1. Reflexes 2/4 in bilateral upper and lower extremities. Negative Hoffmans, babinski, and clonus signs. Psychiatric: Cooperative, appropriate mood & affect, normal judgment. - Labs CBC & Chem 7: 08/27/22 06:48 Assessment and Plan Assessment: s/p Post-Op day 1: C4-C7 anterior cervical decompression and fusion 1. Cervical spondylosis with stenosis Plan: -Appreciate specialty sales consultant and team management. -Activity: Ambulate QID, OOB all meals, up and about, limit lifting bending twisting to less than 5 lbs. Use walker or cane if needed for stability. -Daily PT/OT, increase ambulation strength and balance. -Soft collar when up and about, not needed in bed or chair -Pain control: Adequate at this time -Meds: reviewed -GI ppx: senna, Miralax -DC newman when up and about, bedside commode if needed -DVT PPX: OK to restart Heparin tonight -Hygiene: Shower today. Maintain dressing clean and dry. -Drains: Maintain for now. -Encourage IS 10x/hr -Dispo: Anticipate discharge home tomorrow with homecare *I reviewed and discussed this case with my attending Dr. Caldera, whom has reviewed this chart and films and is in agreement with assessment and plan of care as outlined above. I have personally seen and examined the patient, performed the documentation and the assessment and plan as written. Number of minutes spent on the visit: 20m.
[2022-08-28 09:19] LABS: HCT 44.1 % (39.6-50.0); HGB 15.4 g/dL (13.0-17.0); MCH 31.8 pg (27.0-32.0); MCHC 34.9 g/dL (32.0-37.0); MCV 90.9 fL (80.0-97.0); Mean Platelet Volume 10.7 fL (9.5-12.2); NRBC Per 100 WBC 0 /100 WBCS (0.0-0.0); Platelet Count 219 X 10*3/uL (140-440); RBC 4.85 X 10*6/uL (4.40-5.60); RDW 12.8 % (11.5-14.5); WBC 17.82 X 10*3/uL (4.50-10.00)
[2022-08-28 09:43] LABS: African American GFR (CKD) 121.7 (60.0-200.0); Anion Gap 14.1 mmol/L (10.00-18.00); BUN/Creat Ratio 6.22 Ratio (12.00-20.00); Blood Urea Nitrogen 5.6 mg/dL (9.0-27.0); Calcium 9.4 mg/dL (8.7-10.3); Carbon Dioxide 24.9 mmol/L (20.0-27.5); Potassium 3.3 mmol/L (3.5-5.5)
[2022-08-28] MEDS ORDERED: Potassium Replacement Protocol 1 EACH MISC MISCELLANE PRN (09:55)
[2022-08-28] MEDS: POTASSIUM CHLORIDE ER 20 MEQ TAB.ER PO SCH (10:37)
[2022-08-28 10:43] LABS: Basophils # (A) 0.03 X 10*3/uL (0.00-0.10); Basophils % (A) 0.2 %; Eosinophils # (A) 0 X 10*3/uL (0.04-0.35); Eosinophils % (A) 0 %; Immature Grans, Automated 0.3 %; Lymphocytes # (A) 1.46 X 10*3/uL (0.90-5.00); Lymphocytes % (A) 8.2 %; Monocytes # (A) 2.24 X 10*3/uL (0.20-1.00); Monocytes % (A) 12.6 %; Neutrophils # (A) 14.03 X 10*3/uL (1.80-7.70); Neutrophils % (A) 78.7 %
[2022-08-28] MEDS: hydroCHLOROthiazide 25 MG TAB PO SCH (20:32)
[2022-08-28] MEDS: ATORVASTATIN 40 MG TAB PO SCH (20:32)
[2022-08-29] MEDS: SODIUM CHLORIDE 0.9% 1,000 ML IV SCH (02:19)
--- NOTE | 2022-08-29 05:20 | P.PN ---
Subjective Progress Note Date: 08/28/22 - Reason for Consult Consult date: 08/27/22 Medical management postop c4-7 discectomy and fusion - History of Present Illness This is a 42-year-old male who was recently admitted under orthopedic services and underwent C4-C7 cervical intervention for his continued chronic cervical pain. Patient follows with Dr. Karyna Bedoya in the outpatient setting for past medical history of hyperlipidemia, hypertension, chronic neck and shoulder pain, depression. Patient reports he smokes daily and does drink a few times a week and also admits to using marijuana for his anxiety. Follow-up CT after surgery showed postsurgical changes of the C4-C7 level with satisfactory alignment and hardware positioning is felt to be satisfactory. No labs to my knowledge will follow-up with a.m. labs. Recommend to continue with pain management and DVT prophylaxis per orthopedics. All home medications have been resumed. Patient denies chest pain or shortness of breath. Patient is afebrile. Vital signs are currently stable and have resumed home blood pressure medication to start tomorrow and patient is 99% on room air. 08/28/2022 Patient is seen in follow-up this morning sitting up in the chair. Patient was able to get up and walk today with PT/OT and reports to doing well. Patient is having some neck stiffness and increased pain and medications were adjusted this am by orthopedics. Continue with soft collar. ALEX drain noted with serous fluid. Patient with an incentive spirometer at the bedside recommend using at least 10 times per hour while awake. Patient is afebrile and denies shortness of breath. WBC elevated likely reactive. Recommend repeat labs and monitor for any fevers. Encouraged increased activity as tolerated. Review of systems: Constitutional: No reports of fatigue, fever, or chills Cardiovascular: No reports of chest pain or palpitations Respiratory: No reports of shortness of breath or cough GI: No reports of nausea, vomiting, or diarrhea : No reports of dysuria or retention Neurovascular: No reports of weakness or numbness, reports stiff neck when moving to the left All medications have been reviewed PHYSICAL EXAMINATION: GENERAL: The patient is alert and oriented x4, Well developed, well nourished. Thin built male HEENT: Pupils are round and equally reacting to light. EOMI. no scleral icterus. No conjunctival pallor. Normocephalic, atraumatic. No pharyngeal erythema. No thyromegaly. Soft Cervical collar noted CARDIOVASCULAR: S1 and S2 muffled PULMONARY: diminished breath sounds bilaterally with no wheezing or rhonchi noted. ABDOMEN: soft. Nontender on exam. non-distended, normoactive bowel sounds. No palpable organomegaly. MUSCULOSKELETAL: No joint swelling or deformity. discomfort with movement of the neck from left to right. EXTREMITIES: No cyanosis, clubbing, or pedal edema. NEUROLOGICAL: Gross neurological examination did not reveal any focal deficits. SKIN: No rashes. Assessment: Chronic neck pain post C4-7 anterior cervical discectomy and fusion Hypertension Hyperlipidemia History of depression Continued ongoing nicotine abuse THC use GI prophylaxis DVT prophylaxis Full code Plan: Recommend to continue with current medications and management per orthopedic services. Patient is post C4-7 cervical discectomy with fusion currently sitting up in the chair with a soft collar noted. Continues with the alex drain with serous output. Patient reports to feeling well and vital signs are stable. Home medications reviewed and resumed for a.m. Encouraged increased activity with orthopedic restrictions in mind. Pain medications adjusted per orthopedics. Recommend continue with pain management per primary service. Diet has been resumed and will continue. PT/OT therapy evaluated the patient and had him walking today. Recommend incentive spirometer at least 10 times every hour while awake. Recommend a.m. labs which have been ordered. Patient reports going home tomorrow. We will continue to follow with orthopedics during hospitalization. Thank you kindly for this consultation. The impression and plan of care has been dictated by Renetta Mcgrath, nurse practitioner as directed. Dr. Jessica SMITH I have performed a history and examination and MDM of this patient, discussed the same with the dictator, and agree with the dictator's assessment and plan as written ,documented as a scribe. Based on total visit time, I have performed more than 50% of the visit. Any additional findings or plans will be noted. Objective - Vital Signs Vital signs: Vital Signs Temp 98.5 F 08/28/22 05:20 Pulse 75 08/28/22 05:20 Resp 16 08/28/22 05:20 BP 131/82 08/28/22 05:20 Pulse Ox 98 08/28/22 05:20 FiO2 Intake & Output 08/27/22 08/28/22 08/28/22 18:59 06:59 18:59 Intake Total 1700 450 Output Total 1755 1000 990 Balance -55 -550 -990 Weight 61.6 kg Intake: IV 1650 Intake, IV Titration 50 450 Amount Sodium Chloride 0.9% 1, 400 000 ml @ 50 mls/hr IV . Q20H [facility] Rx#:[id number] ceFAZolin 2 gm In Sodium 50 50 Chloride 0.9% 50 ml @ 100 mls/hr IVPB Q8HR LO Rx# :[id number] Output: Drainage 25 40 Anterior Neck 25 40 Urine 1675 1000 950 Estimated Blood Loss 55 Other: Voiding Method Urinal Urinal # Voids 1 2 - Labs CBC & Chem 7: 08/28/22 04:16 08/28/22 04:16 Labs: Abnormal Lab Results - Last 24 Hours (Table) 08/28/22 08/28/22 Range/Units 04:16 04:16 WBC 17.82 H (4.50-10.00) X 10*3/uL Potassium 3.3 L (3.5-5.5) mmol/L BUN 5.6 L (9.0-27.0) mg/dL BUN/Creatinine Ratio 6.22 L (12.00-20.00) Ratio Glucose 119 H (70-110) mg/dL
--- NOTE | 2022-08-29 08:27 | P.PN ---
Subjective Progress Note Date: 08/29/22 Principal diagnosis: Cervical spondylosis with stenosis Patient seen and examined at bedside. Patient is resting in bed. Patient feels his pain is managed on current regimen. He does report some muscle tightness in his shoulders, may use ice packs. Surgical dressing is clean dry and intact. He states he is ready to go home today. He currently denies any fever/chills, nausea/vomiting, or chest pain. Objective - Vital Signs Vital signs: Vital Signs Temp 98.6 F 08/29/22 05:00 Pulse 92 08/29/22 05:00 Resp 16 08/29/22 05:00 BP 130/86 08/29/22 05:00 Pulse Ox 97 08/29/22 05:00 FiO2 Intake & Output 08/28/22 08/29/22 08/29/22 18:59 06:59 18:59 Intake Total 1000 590 Output Total 1020 200 Balance -20 390 Intake: Intake, IV Titration 1000 Amount Sodium Chloride 0.9% 1, 950 000 ml @ 50 mls/hr IV . Q20H [facility] Rx#:[id number] ceFAZolin 2 gm In Sodium 50 Chloride 0.9% 50 ml @ 100 mls/hr IVPB Q8HR LO Rx# :[id number] Oral 590 Output: Drainage 70 Anterior Neck 70 Urine 950 200 Other: Voiding Method Urinal Urinal # Voids 2 - Exam Physical Examination General: The patient is awake and alert, in no acute distress Skin: Skin is warm and dry with no obvious rashes or lesions. Hairy patches absent, no dorsal skin dimples, no cafe au lait spots, surgical incision to ante rior cervical. Eye: Pupils are equal, round and reactive to light, extra-ocular movements are intact; there is normal conjunctiva bilaterally. Neck: The neck is supple, there is no tenderness and ROM intact. Cardiovascular: There is a regular rate and rhythm. No murmur, rub or gallop is appreciated. Respiratory: Lungs are clear to auscultation, respirations are non-labored, breath sounds are equal. Gastrointestinal: Soft, non-distended, non-tender abdomen . Back: There is no tenderness to palpation in the midline, paralumbar, parathoracic or buttocks region. There is no obvious deformity . Musculoskeletal: ROM limited secondary to pain and stiffness from surgical procedure. Muscle strength in all major muscle groups in Bilateral upper extremities 4/5, bilateral lower extremities 5/5 Neurological: CN 2-12 intact. There are no obvious motor or sensory deficits. Movement and coordination equal and intact. Sensory exam to light touch intact C5-T1 and intact from L2-S1. Reflexes 2/4 in bilateral upper and lower extremities. Negative Hoffmans, babinski, and clonus signs. Psychiatric: Cooperative, appropriate mood & affect, normal judgment. - Labs CBC & Chem 7: 08/28/22 04:16 08/28/22 04:16 Labs: Abnormal Lab Results - Last 24 Hours (Table) 08/28/22 08/28/22 Range/Units 04:16 04:16 WBC 17.82 H (4.50-10.00) X 10*3/uL Immature Gran # 0.06 H (0.00-0.04) X 10*3/uL Neutrophils # 14.03 H (1.80-7.70) X 10*3/uL Monocytes # 2.24 H (0.20-1.00) X 10*3/uL Eosinophils # 0 L (0.04-0.35) X 10*3/uL Potassium 3.3 L (3.5-5.5) mmol/L BUN 5.6 L (9.0-27.0) mg/dL BUN/Creatinine Ratio 6.22 L (12.00-20.00) Ratio Glucose 119 H (70-110) mg/dL Assessment and Plan Assessment: s/p Post-Op day 2: C4-C7 anterior cervical decompression and fusion 1. Cervical spondylosis with stenosis Plan: -Appreciate work and family life consultant and team management. -Activity: Ambulate QID, OOB all meals, up and about, limit lifting bending twisting to less than 5 lbs. Use walker or cane if needed for stability. -Daily PT/OT, increase ambulation strength and balance. -Soft collar when up and about, not needed in bed or chair -Pain control: Adequate at this time -Meds: reviewed -GI ppx: senna, Miralax -DC newman when up and about, bedside commode if needed -DVT PPX: heparin, TEDS -Hygiene: Shower today. Maintain dressing clean and dry. -Encourage IS 10x/hr -Dispo: Anticipate discharge home today with homecare *I reviewed and discussed this case with my attending Dr. Caldera, whom has reviewed this chart and films and is in agreement with assessment and plan of care as outlined above. I have personally seen and examined the patient, performed the documentation and the assessment and plan as written. Number of minutes spent on the visit: 20m.
[2022-08-29] MEDS: amLODIPine 10 MG TAB PO SCH (09:41)
[2022-08-29] MEDS: HYDROcodone/APAP 10-325MG 1 EACH TAB PO PRN ×2 (09:41→09:43)
[2022-08-29] MEDS: GABAPENTIN 300 MG CAP PO SCH (09:41)
[2022-08-29] MEDS: PANTOPRAZOLE 40 MG TABLET PO SCH (09:41)
[2022-08-29] MEDS: LACTATED RINGERS 1,000 ML IV SCH (09:43)
[2022-08-29 10:39] LABS: Basophils # (A) 0.04 X 10*3/uL (0.00-0.10); Basophils % (A) 0.3 %; Eosinophils # (A) 0.01 X 10*3/uL (0.04-0.35); Eosinophils % (A) 0.1 %; HCT 47.9 % (39.6-50.0); HGB 16.9 g/dL (13.0-17.0); Immature Grans, Automated 0.5 %; Lymphocytes # (A) 2.37 X 10*3/uL (0.90-5.00); Lymphocytes % (A) 16.2 %; MCH 32.1 pg (27.0-32.0); MCHC 35.3 g/dL (32.0-37.0); MCV 91.1 fL (80.0-97.0); Mean Platelet Volume 10.2 fL (9.5-12.2); Monocytes # (A) 2.22 X 10*3/uL (0.20-1.00); Monocytes % (A) 15.2 %; NRBC Per 100 WBC 0 /100 WBCS (0.0-0.0); Neutrophils # (A) 9.91 X 10*3/uL (1.80-7.70); Neutrophils % (A) 67.7 %; Platelet Count 212 X 10*3/uL (140-440); RBC 5.26 X 10*6/uL (4.40-5.60); RDW 12.8 % (11.5-14.5); WBC 14.62 X 10*3/uL (4.50-10.00)
[2022-08-29 10:54] LABS: African American GFR (CKD) 121.7 (60.0-200.0); Anion Gap 13.6 mmol/L (10.00-18.00); Blood Urea Nitrogen 5.4 mg/dL (9.0-27.0); Calcium 10.2 mg/dL (8.7-10.3); Carbon Dioxide 30.4 mmol/L (20.0-27.5); Potassium 3.5 mmol/L (3.5-5.5)
[2022-08-29 12:28] VITALS: BP 130/68; PULSE 88; RESP 18; TEMP 98
--- NOTE | 2022-08-30 15:31 | P.PN ---
Subjective Progress Note Date: 08/29/22 - Reason for Consult Consult date: 08/27/22 Medical management postop c4-7 discectomy and fusion - History of Present Illness This is a 42-year-old male who was recently admitted under orthopedic services and underwent C4-C7 cervical intervention for his continued chronic cervical pain. Patient follows with Dr. Karyna Bedoya in the outpatient setting for past medical history of hyperlipidemia, hypertension, chronic neck and shoulder pain, depression. Patient reports he smokes daily and does drink a few times a week and also admits to using marijuana for his anxiety. Follow-up CT after surgery showed postsurgical changes of the C4-C7 level with satisfactory alignment and hardware positioning is felt to be satisfactory. No labs to my knowledge will follow-up with a.m. labs. Recommend to continue with pain management and DVT prophylaxis per orthopedics. All home medications have been resumed. Patient denies chest pain or shortness of breath. Patient is afebrile. Vital signs are currently stable and have resumed home blood pressure medication to start tomorrow and patient is 99% on room air. 08/28/2022 Patient is seen in follow-up this morning sitting up in the chair. Patient was able to get up and walk today with PT/OT and reports to doing well. Patient is having some neck stiffness and increased pain and medications were adjusted this am by orthopedics. Continue with soft collar. YASMEEN drain noted with serous fluid. Patient with an incentive spirometer at the bedside recommend using at least 10 times per hour while awake. Patient is afebrile and denies shortness of breath. WBC elevated likely reactive. Recommend repeat labs and monitor for any fevers. Encouraged increased activity as tolerated. 08/29/2022 Patient is seen this morning in follow-up doing relatively well. Patient reports he has been working with physical therapy and will be going home. Patient continues to report some neck discomfort although feels improved each day. Patient with some stiffness although able to move more from the left to the right than yesterday. Patient to continue soft collar and close outpatient follow-up with orthopedics. Patient having YASMEEN drain removed today. Patient encouraged to take home the incentive spirometer and continue using at least 10 times every hour while awake. Recommend follow-up with primary care provider as well. Patient is afebrile denies chest pain or shortness of breath. Patient denies nausea or vomiting and is tolerating soft foods. Recommended the patient to continue soft foods and slowly advance as tolerated. A management per orthopedics. Review of systems: Constitutional: No reports of fatigue, fever, or chills Cardiovascular: No reports of chest pain or palpitations Respiratory: No reports of shortness of breath or cough GI: No reports of nausea, vomiting, or diarrhea : No reports of dysuria or retention Neurovascular: No reports of weakness or numbness All medications have been reviewed PHYSICAL EXAMINATION: GENERAL: The patient is alert and oriented x4, Well developed, well nourished. Thin built male HEENT: Pupils are round and equally reacting to light. EOMI. no scleral icterus. No conjunctival pallor. Normocephalic, atraumatic. No pharyngeal erythema. No thyromegaly. Soft Cervical collar noted CARDIOVASCULAR: S1 and S2 muffled PULMONARY: diminished breath sounds bilaterally with no wheezing or rhonchi noted. ABDOMEN: soft. Nontender on exam. non-distended, normoactive bowel sounds. No palpable organomegaly. MUSCULOSKELETAL: No joint swelling or deformity. discomfort with movement of the neck from left to right. EXTREMITIES: No cyanosis, clubbing, or pedal edema. NEUROLOGICAL: Gross neurological examination did not reveal any focal deficits. SKIN: No rashes. Assessment: Chronic neck pain post C4-7 anterior cervical discectomy and fusion Hypertension Hyperlipidemia History of depression Continued ongoing nicotine abuse THC use GI prophylaxis DVT prophylaxis Full code Plan: Recommend to continue with current medications and management per orthopedic services. Patient is post C4-7 cervical discectomy with fusion currently sitting up in the chair with a soft collar noted. YASMEEN drain being removed. Patient reports to feeling well and vital signs are stable. Home medications reviewed and resumed for a.m. Encouraged increased activity with orthopedic restrictions in mind. Pain medications adjusted per orthopedics. Recommend continue with pain management per primary service. Diet has been resumed and will continue. Recommend incentive spirometer at least 10 times every hour while awake even while at home. Patient reports to being discharged this afternoon. We will continue to follow with orthopedics during hospitalization. Thank you kindly for this consultation. The impression and plan of care has been dictated by Renetta Mcgrath, nurse practitioner as directed. Dr. Jessica SMITH I have performed a history and examination and MDM of this patient, discussed the same with the dictator, and agree with the dictator's assessment and plan as written ,documented as a scribe. Based on total visit time, I have performed more than 50% of the visit. Any additional findings or plans will be noted. Objective - Vital Signs Vital signs: Vital Signs Temp 98.6 F 08/29/22 05:00 Pulse 92 08/29/22 05:00 Resp 16 08/29/22 05:00 BP 130/86 08/29/22 05:00 Pulse Ox 97 08/29/22 05:00 FiO2 Intake & Output 08/28/22 08/29/22 08/29/22 18:59 06:59 18:59 Intake Total 1000 590 Output Total 1020 200 Balance -20 390 Intake: Intake, IV Titration 1000 Amount Sodium Chloride 0.9% 1, 950 000 ml @ 50 mls/hr IV . Q20H [facility] Rx#:[id number] ceFAZolin 2 gm In Sodium 50 Chloride 0.9% 50 ml @ 100 mls/hr IVPB Q8HR LO Rx# :[id number] Oral 590 Output: Drainage 70 Anterior Neck 70 Urine 950 200 Other: Voiding Method Urinal Urinal # Voids 2 - Labs CBC & Chem 7: 08/29/22 07:32 08/29/22 07:32 Labs: Abnormal Lab Results - Last 24 Hours (Table) 08/28/22 Range/Units 04:16 Immature Gran # 0.06 H (0.00-0.04) X 10*3/uL Neutrophils # 14.03 H (1.80-7.70) X 10*3/uL Monocytes # 2.24 H (0.20-1.00) X 10*3/uL Eosinophils # 0 L (0.04-0.35) X 10*3/uL
[2022-08-31] MEDS ORDERED: CHOLECALCIFEROL 25 MCG (1000 IU) TABLET PO SCH (09:00)
== END 2022-08-29 14:15 | disposition home or self-care (01) | DRG 473 ==
LOC: 2ORMAIN 05:42 → 5NMEDONC 10:49
PROVIDERS: ADMIT Orthopaedic Surgery; ATTEND Orthopaedic Surgery
PROC: 0RB30ZZ Excision of Cervical Vertebral Disc, Open Approach (ICD-10-PCS; 2022-08-27)
PROC: 0RG20A0 Fusion of 2 or more Cervical Vertebral Joints with Interbody Fusion Device, Anterior Approach, Anterior Column, Open Approach (ICD-10-PCS; 2022-08-27)
PROC: 0RG2070 Fusion of 2 or more Cervical Vertebral Joints with Autologous Tissue Substitute, Anterior Approach, Anterior Column, Open Approach (ICD-10-PCS; principal; 2022-08-27 07:30)
DX: M47.12 Other spondylosis with myelopathy, cervical region (principal); I10 Essential (primary) hypertension; F32.A Depression, unspecified; E78.5 Hyperlipidemia, unspecified; F17.210 Nicotine dependence, cigarettes, uncomplicated; M47.22 Other spondylosis with radiculopathy, cervical region; M48.02 Spinal stenosis, cervical region; M25.78 Osteophyte, vertebrae; G89.29 Other chronic pain; M43.6 Torticollis; F41.9 Anxiety disorder, unspecified; G47.8 Other sleep disorders; Z79.899 Other long term (current) drug therapy; Z28.310 Unvaccinated for COVID-19
CPT/HCPCS: 72040; 72125; 80048; 84132; 85025; 85730; 86850; 86900; 86901

== ENCOUNTER 2022-10-01 20:39 | Emergency (ER) | payer OTHER ==
[2022-10-01] MEDS ORDERED: KETOROLAC 15 MG/ML 1 ML VIAL IVP STA (21:10)
[2022-10-01 21:45] VITALS: RESP 16
[2022-10-01 22:13] VITALS: PULSE 82
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
[2022-10-01 22:26] VITALS: BP 130/93; TEMP 98.5
== END 2022-10-01 22:26 | disposition home or self-care (01) ==
LOC: EC 20:39
DX: M54.6 Pain in thoracic spine (principal); I10 Essential (primary) hypertension; E78.5 Hyperlipidemia, unspecified; F17.200 Nicotine dependence, unspecified, uncomplicated; Z88.8 Allergy status to other drugs, medicaments and biological substances; Z79.899 Other long term (current) drug therapy; V49.9XXD Car occupant (driver) (passenger) injured in unspecified traffic accident, subsequent encounter; Y92.410 Unspecified street and highway as the place of occurrence of the external cause
CPT/HCPCS: 72128; 72125; 99284; 96374; J1885

== ENCOUNTER → 2023-02-05 | Outpatient (CLI) | payer OTHER ==
--- NOTE | 2023-02-06 09:46 | MR ---
EXAMINATION TYPE: MR hip RT wo con DATE OF EXAM: 02/05/2023 COMPARISON: Right hip x-ray January 31, 2023 HISTORY: Right hip pain for 2 years Standard multiplanar, multisequence MRI departmental protocol Multiplanar, multisequence images of the pelvis focusing on right hip were acquired without contrast. FINDINGS: The hip joint spaces are symmetrically and mild to moderately narrowed bilaterally but less prominent on corresponding radiograph. There is serpiginous diminished T1 signal in the superior asp ect of the bilateral femoral heads. There is increased T2 signal in the bilateral femoral heads exten ding into the femoral neck in the right hip. No bony fragmentation is seen. Small right greater than left hip joint effusions are noted. Muscle bulk is symmetric and maintained bilaterally. No suspicious scoring hernia or adenopathy is se en. Urinary bladder appears within normal limits. Prostate gland is unremarkable. Visualized bowel shows no abnormal dilatation. No concerning pelvic fluid collection is seen. IMPRESSION: Bilateral avascular necrosis as detailed above with more prominent findings in the right hip versus left hip. Etiology includes product of excessive steroid use and connective tissue disorde rs. Other etiologies not excluded. Correlate clinically to determine etiology.
== END | disposition home or self-care (01) ==
LOC: RADMRIMAIN 21:15
PROVIDERS: ATTEND Orthopaedic Surgery
DX: M87.051 Idiopathic aseptic necrosis of right femur (principal); M87.052 Idiopathic aseptic necrosis of left femur; M25.551 Pain in right hip

== ENCOUNTER → 2023-03-07 | Outpatient (CLI) | payer OTHER ==
--- NOTE | 2023-03-07 12:31 | XR ---
EXAMINATION TYPE: XR chest 2V DATE OF EXAM: 03/07/2023 COMPARISON: Chest x-ray July 26, 2019 HISTORY: Left-sided chest pain. TECHNIQUE: Frontal and lateral views of the chest are obtained. FINDINGS: There is no suspicious focal air space opacity, pleural effusion, or pneumothorax seen. T he cardiac silhouette size is stable and within normal limits. There is partial visualization of surg ical change in the cervical spine on current study. IMPRESSION: No acute cardiopulmonary process. No significant change from prior.
== END | disposition home or self-care (01) ==
LOC: RADXRMAIN 12:08
PROVIDERS: ATTEND Family Medicine
DX: R07.9 Chest pain, unspecified (principal)
CPT/HCPCS: 71046

== ENCOUNTER → 2023-03-21 | Outpatient (CLI) | payer OTHER | END | disposition home or self-care (01) | LOC: LABPAT 16:20 | PROVIDERS: ATTEND Orthopaedic Surgery | DX: M16.11 Unilateral primary osteoarthritis, right hip (principal) | CPT/HCPCS: 87070 ==

== ENCOUNTER → 2023-03-28 | Outpatient (CLI) | payer OTHER ==
[2023-03-29 02:12] LABS: Basophils # (A) 0.05 X 10*3/uL (0.00-0.10); Basophils % (A) 0.6 %; Eosinophils # (A) 0.03 X 10*3/uL (0.04-0.35); Eosinophils % (A) 0.3 %; HCT 48.9 % (39.6-50.0); HGB 16.5 d/dL (12.0-15.0); Lymphocytes # (A) 2.91 X 10*3/uL (0.90-5.00); Lymphocytes % (A) 33.8 %; MCH 30.7 pg (27.0-32.0); MCHC 33.7 d/dL (32.0-37.0); MCV 91.1 FL (80.0-97.0); Monocytes # (A) 0.91 X 10*3/uL (0.20-1.00); Monocytes % (A) 10.6 %; NRBC Per 100 WBC 0 X 10*3/uL (0.00-0.01); Neutrophils % (A) 54.5 %; Platelet Count 320 X 10*3/uL (140-440); RBC 5.37 X 10*6/uL (4.40-5.60); RDW 13.7 % (11.5-14.5); WBC 8.62 X 10*3/uL (4.50-10.00)
[2023-03-29 02:14] LABS: Blood Urea Nitrogen 7.6 mg/dL (9.0-27.0); Calcium 10.1 mg/dL (8.7-10.3); Carbon Dioxide 22.7 mmol/L (21.6-31.8); Chloride 100 mmol/L (96-109); Glucose 80 mg/dL (70-110); Potassium 3.9 mmol/L (3.5-5.5); Sodium 139 mmol/L (135-145)
== END | disposition home or self-care (01) ==
LOC: LABPAT 15:55
PROVIDERS: ATTEND Orthopaedic Surgery
DX: Z01.812 Encounter for preprocedural laboratory examination (principal); M16.11 Unilateral primary osteoarthritis, right hip
CPT/HCPCS: 36415; 80048; 85025; 85610

== ENCOUNTER 2023-04-01 05:44 | Observation (INO) | payer OTHER ==
--- NOTE | 2023-03-31 08:40 | P.HPOR ---
History of Present Illness H&P Date: 03/31/23 Chief Complaint: Right hip pain The patient is a 42 -year-old male who presents with progressive right hip pain for the past 4 years. He's having groin and thigh pain with any weightbearing activities. He is having difficult time at night. He notes this is worsened. He's tried medications in the past for this. Review of Systems Negative except as in HPI Past Medical History Past Medical History: Hyperlipidemia, Hypertension Additional Past Medical History / Comment(s): Pericarditis, bowel obstruction, chronic neck and shoulder pain. USES CANE. History of Any Multi-Drug Resistant Organisms: None Reported Past Surgical History: Bowel Resection Additional Past Surgical History / Comment(s): 08/27/22 CERVICAL FUSION. pain clinic procedures, abdominal surgery for scar tissue. 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 PT HAS CUT HIS BEER CONSUMPTION DOWN TO 2-24 OZ CANS A FEW TIMES A WEEK Past Drug Use History: Marijuana Additional Drug Use History / Comment(s): PT STATES HE HAS CUT HIS MARIJUANA USE DOWN - Past Family History Mother Family Medical History: No Reported History Additional Family Medical History / Comment(s): Father Family Medical History: Coronary Artery Disease (CAD) Medications and Allergies Home Medications Medication Instructions Recorded Confirmed Type hydroCHLOROthiazide 25 mg PO HS 07/26/19 03/26/23 History amLODIPine [Norvasc] 10 mg PO QAM 07/10/20 03/26/23 History Omeprazole [PriLOSEC] 20 mg PO QAM 07/05/21 03/26/23 History Ergocalciferol [Vitamin D2 (1250 2,000 units PO SA 05/14/22 03/26/23 History Mcg = 86678 Iu)] Atorvastatin [Lipitor] 40 mg PO HS 08/22/22 03/26/23 History buPROPion SR [Wellbutrin SR] 150 mg PO BID 03/26/23 03/26/23 History Allergies Allergy/AdvReac Type Severity Reaction Status Date / Time lisinopril Allergy Rash/Hives, Verified 03/26/23 15:05 SWELLING OF FACE Physical Examination - Hip right Gait: antalgic Tenderness with palpation: anterior Pain with motion: internal rotation and hip flexion ROM: flexion: 80 degrees ROM: internal rotation: 10 degrees (With pain) ROM: external rotation: 50 degrees Crepitus with motion: Yes Strength: extension: 5/5 Strength: flexion: 5/5 Strength: abduction: 5/5 Tests: impingement tests: positive Results The patient is a well-developed well-nourished male approximately 5 foot 9, 135 pounds of ectomorphic habitus. HEENT exam is nonfocal. He is limited passive range of motion of both hips. His distal neurovascular appears intact in the lower extremities. 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 At this point he is quite symptomatic and limited with progression of his pain along with the disease process. After a thorough discussion of his options he opts to proceed with surgery. We'll plan to proceed with right total hip arthroplasty utilizing a lateral approach. Risks and benefits were discussed at length in layman's terms.
[~2023-04-01 05:44] MED LIST changes: -GABAPENTIN 300 MG CAP PO PRN; -LIDOCAINE 1% (10MG/ML) FOR IV START INTRADERMA PRN; +MELOXICAM 7.5 MG TAB PO PRN; -MIDAZOLAM 2 MG/2 ML VIAL IV PRN; -ONDANSETRON 4 MG/2 ML VIAL IVP PRN; +TRANEXAMIC 1,000 MG/100ML-NACL 1,000 MG in SALINE 1 100ML.BAG IVPB PRN; -TRANEXAMIC ACID IN NACL,ISO-OS 1,000 MG in SALINE 1 100ML.BAG IVPB PRN
[2023-04-01] MEDS ORDERED: ONDANSETRON 4 MG/2 ML VIAL IVP ONE (06:09)
[2023-04-01] MEDS ORDERED: DEXAMETHASONE SOD PHOSPHATE 4 MG/ML 1 ML VIAL IV ONE (06:09)
[2023-04-01] MEDS: LACTATED RINGERS 1,000 ML IV SCH (06:19)
[2023-04-01] MEDS ORDERED: MIDAZOLAM 2 MG/2 ML VIAL IVP ONE (06:53)
[2023-04-01] MEDS ORDERED: DEXAMETHASONE SOD PHOSPHATE 4 MG/ML 1 ML VIAL ONE (07:27)
[2023-04-01] MEDS ORDERED: TRANEXAMIC 1,000 MG/100ML-NACL PREMIX BAG ONE (07:27)
[2023-04-01] MEDS ORDERED: fentaNYL (PF) 50 MCG/ML 2 ML AMP ONE (07:27)
[2023-04-01] MEDS ORDERED: MIDAZOLAM 2 MG/2 ML VIAL ONE (07:27)
[2023-04-01] MEDS ORDERED: ROPIVACAINE 5 MG/ML 30 ML VIAL ONE (07:27)
[2023-04-01] MEDS ORDERED: PROPOFOL 10 MG/ML 20 ML VIAL IV ONE (07:27)
[2023-04-01] MEDS ORDERED: ceFAZolin 1,000 MG in SODIUM CHLORIDE 0.9% 1,000 ML IRRIGATION ONE (07:57)
[2023-04-01] MEDS ORDERED: LACTATED RINGERS 1,000 ML IV ONE (08:18)
--- NOTE | 2023-04-01 08:22 | P.ANPRN ---
Procedure Note - Anesthesia - Nerve Block Performed Right [place] Time Out Performed: Yes Date of Procedure: 04/01/23 Procedure Start Time: 06:53 Procedure Stop Time: 06:57 Location of Patient: PreOp Indication: Acute Post-Operative Pain, Analgesia Sedation Type: Sedate with meaningful contact maintained Preparation: Sterile Prep Position: Supine Catheter: Indwelling Needle Types: Pajunk Needle Gauge: 21 Ultrasound used to visualize needle placement: Yes Ultrasound used to observe medication spread: Yes Injectate: 0.5% Ropivacaine (see comment for volume) (20cc + 4mg dexamethasone) Blood Aspirated: No Pain Paresthesia on Injection Noted: No Resistance on Injection: Normal Image Stored and Saved: Yes Events: Uneventful and Well Tolerated
[2023-04-01] MEDS ORDERED: MAGNESIUM HYDROXIDE 2,400 MG/30 ML CUP PO PRN (09:07)
[2023-04-01] MEDS ORDERED: NALOXONE 0.4 MG/ML 1 ML VIAL IV PRN (09:07)
[2023-04-01] MEDS ORDERED: HYDROcodone/APAP 5-325MG 1 EACH TAB PO PRN (09:07)
--- NOTE | 2023-04-01 09:29 | P.OP ---
Date of Procedure: 04/01/23 Preoperative Diagnosis: Right hip avascular necrosis Postoperative Diagnosis: Same Procedure(s) Performed: Right total hip arthroplastypress-fitlateral approach Implants: Depuy Corail size 11 collared high offset press-fit femoral stem, 52 mm [place] acetabular shell with neutral polyethylene liner, 36+1.5 cobalt chrome femoral head. Anesthesia: spinal Surgeon: Shahid Rousseau Clinical Applications Manager #1: Ran Layne Estimated Blood Loss (ml): 200 Pathology: other (Femoral head) Condition: stable Disposition: PACU Indications for Procedure: The patient is a 42-year-old male who presents with progressive right hip pain secondary to avascular necrosis. A discussion of the risks and benefits of operative intervention versus continued conservative measures was made with patient. Operative options including core decompression with bone grafting versus total hip arthroplasty were discussed. He opted to proceed with total hip arthroplasty. Risks and benefits were discussed at length in layman's terms to include specific risks of infection, neurovascular injury, development of blood clots, fracture, leg length discrepancy, instability, possible component loosening/failure and possible need for subsequent procedures was discussed. Informed consent was obtained. Operative Findings: As below Description of Procedure: The patient was brought to the operating room, and after induction of spinal anesthesia was placed in a lateral decubitus position. The bony prominences were appropriately padded. The pelvis was stable perpendicular to the floor with a pegboard. The right lower extremity was prepped and draped in normal fashion. A 12 cm incision was then made centered over the greater trochanter extending superiorly to level the ASIS and distally in line with the femoral shaft. The skin and subcutaneous tissues were divided sharply. Electrocautery was used for hemostasis. The fascia cristian and gluteus obi fascia was split in line with the skin incision. The muscle fibers were bluntly dissected proximally. A self-retaining retractor was placed. The anterior and posterior margins of the gluteus medius muscles identified and the anterior two thirds was detached from the greater trochanter with electrocautery. The gluteus minimus tendon was identified and detached in a similar fashion. A wide capsulotomy was performed. The femoral neck fracture was identified in the lower neck cut was made approximately 1 1/2 cm above the level of the lesser trochanter with a sagittal saw at a 45 the shaft. The head was then extracted with a corkscrew. Attention was then paid towards preparing the acetabular. Anterior and posterior retractors were placed. The remaining capsular labral tissues debrided sharply clearly defining the acetabular margins. Began reaming with a 47 mm reamer taking care to initially medialize, then reaming at 45 of abduction and 20 of anteversion. Sequential reaming is performed up to 51 mm. This was down to bleeding bony surface. A trial 52 mm acetabular shell was inserted at 45 of abduction and 20 of anteversion. This was fully seated. There was good rim fit and stability. A neutral polyethylene liner was then impacted. Care taken to avoid any soft tissue interposition. Attention was then paid towards preparing the proximal femur. A box chisel was used to open the metaphyseal region. A canal finder was used to find the femoral canal. Sequential broaching was performed up to a size 11. This is placed in 15 of anteversion with the leg perpendicular floor judging off the trans-epicondylar axis. There is good rotational stability. A calcar mill was used to fashion the medial calcar. A trial high offset neck along with a 36 mm + 1.5 trial head was placed. The hip was gently reduced. It was taken through range of motion. I felt to be stable in flexion and extension with internal and external rotation. I felt there was adequate hinduism of soft tissue tension. The hip was gently dislocated. The trial components removed. Pulsatile lavage was utilized. The final size 11 high offset collared femoral stem was inserted again with the leg perpendicular to the floor in 15 of anteversion. Again there was good rotational stability. A 36 mm + 1.5 cobalt chrome femoral head was gently impacted. The hip was gently reduced. Again it was taken through motion and felt to be stable in flexion and extension with internal and external rotation. Pulsatile lavage was again utilized. With the leg in abduction the gluteus minimus and medius tendons reattached to the greater trochanter with #2 Ethibond suture. There was minimal drainage therefore a deep drain was not placed. The fascia cristian and gluteus obi fascia was closed with #2 Ethibond suture. The subcutaneous tissues were reapproximated interrupted 2-0 Vicryl sutures. The skin was reapproximated with 3-0 subcuticular strata fix suture. Skin tape and adhesive was applied. A sterile dressing was applied. The patient was awoken from sedation and transferred to recovery room in good condition. Blood loss was estimated 200 mL. No complications were incurred. Sponge and needle counts were correct in the case. Ran SANTANA assisted during the major composes case to include exposure, implantation, and closure.
[2023-04-01] MEDS: HYDROmorphone 0.5 MG/0.5 ML SYRINGE IVP PRN ×3 (09:52→16:41)
--- NOTE | 2023-04-01 10:16 | XR ---
EXAMINATION TYPE: XR Hip Limited RT DATE OF EXAM: 04/01/2023 Comparison: None Clinical History: 42-year-old male Status post hip surgery, assess surgical alignment Findings: Image shows placement of right total hip arthroplasty. Both the acetabular cup and femoral stem compo nents of the prosthesis are well seated without periprosthetic fracture. Alignment grossly anatomic. Soft tissue air related to recent operation. Impression: Uncomplicated postoperative appearance right total hip arthroplasty.
[2023-04-01] MEDS: HYDROcodone/APAP 7.5-325MG 1 EACH TAB PO PRN ×2 (12:57→20:32)
[2023-04-01] MEDS: ATORVASTATIN 40 MG TAB PO SCH (20:32)
[2023-04-01] MEDS: hydroCHLOROthiazide 25 MG TAB PO SCH (20:34)
[2023-04-01] MEDS: buPROPion SR 150 MG TABLET.ER PO SCH (20:34)
[2023-04-01] MEDS: SENNOSIDES-DOCUSATE SODIUM 1 EACH TAB PO SCH (20:34)
--- NOTE | 2023-04-02 05:28 | CONS ---
CONSULTATION REASON FOR CONSULTATION: Advice regarding hypertension and hyperlipidemia requested by Orthopedic Service. HISTORY OF PRESENT ILLNESS: This is a 42-year-old gentleman with a past medical history of hypertension and hyperlipidemia, underwent a right total hip joint arthroplasty for right hip avascular necrosis. There is no history of any fever or rigors. No history of headache, loss of consciousness, or seizures at this time. PAST MEDICAL HISTORY: Reviewed includes hypertension, hyperlipidemia, and avascular necrosis. Rest of the history and rest of the chart are also reviewed. HOME MEDICATIONS: Reviewed include hydrochlorothiazide. Doses and rest of the medications are noted. ALLERGIES: Lisinopril. FAMILY HISTORY: No history of any heart disease or strokes in the family. SOCIAL HISTORY: History of daily smoking. REVIEW OF SYSTEMS: Fourteen-point review is negative except as mentioned earlier. PHYSICAL EXAMINATION: VITAL SIGNS: Pulse is 81, blood pressure 131/88, respirations 17. HEENT: Conjunctivae are normal. NECK: No jugular venous distention. CARDIOVASCULAR: S1 and S2 muffled. RESPIRATORY: Clear to auscultation. ABDOMEN: Soft. LEGS: Status post surgery. NERVOUS SYSTEM: Nonfocal. LABORATORY DATA: Not available. ASSESSMENT: 1. Status post right total hip joint arthroplasty for avascular necrosis. 2. Hypertension. 3. Hyperlipidemia. 4. History of pericarditis. 5. History of bowel resection. 6. History of nicotine dependence. RECOMMENDATIONS: In this 42-year-old gentleman presented after surgery at this time, I would recommend to resume the home medications and DVT prophylaxis. Otherwise, incentive spirometry. Closely follow with Surgery. Recommend to closely follow up with primary physician in the outpatient setting. MMODL / IJN: [id number] /
[2023-04-02] MEDS: LACTATED RINGERS 1,000 ML IV SCH (05:42)
[2023-04-02] MEDS: HYDROmorphone 1 MG/ML 1 ML SYRINGE IVP PRN ×3 (06:25→21:17)
[2023-04-02] MEDS: PANTOPRAZOLE 40 MG TABLET PO SCH (08:00)
[2023-04-02] MEDS: amLODIPine 10 MG TAB PO SCH (08:00)
[2023-04-02] MEDS: RIVAROXABAN 10 MG TAB PO SCH (08:00)
[2023-04-02] MEDS: buPROPion SR 150 MG TABLET.ER PO SCH ×2 (08:00→21:17)
[2023-04-02 08:20] LABS: Basophils % (A) 0 %; Eosinophils # (A) 0.1 k/uL (0-0.7); Eosinophils % (A) 0 %; HCT 44.1 % (39.0-53.0); Lymphocytes # (A) 1.1 k/uL (1.0-4.8); Lymphocytes % (A) 6 %; MCH 31.3 pg (25.0-35.0); MCHC 34.1 g/dL (31.0-37.0); MCV 91.9 fL (80.0-100.0); Mean Platelet Volume 8.3; Monocytes # (A) 1.3 k/uL (0-1.0); Monocytes % (A) 8 %; Neutrophils % (A) 85 %; Platelet Count 254 k/uL (150-450); RDW 13.6 % (11.5-15.5); WBC 16.5 k/uL (3.8-10.6)
[2023-04-02] MEDS: HYDROcodone/APAP 7.5-325MG 1 EACH TAB PO PRN ×2 (10:26→19:10)
--- NOTE | 2023-04-02 13:07 | PN ---
PROGRESS NOTE DATE OF SERVICE: 04/02/2023 SUBJECTIVE: This is a 42-year-old gentleman who was admitted after right total hip joint arthroplasty, improving significantly. No chest pain, no palpitations, no fever. OBJECTIVE: VITAL SIGNS: Pulse is 91, blood pressure 150/80, respirations 17. HEENT: Conjunctivae normal. CARDIOVASCULAR: S1, S2. ABDOMEN: Soft status post surgery. NERVOUS SYSTEM: No focal deficits. LABORATORY DATA: Reviewed. ASSESSMENT: 1. Status post right total hip joint arthroplasty for avascular necrosis. 2. Hypertension. 3. Hyperlipidemia. 4. History of pericarditis. 5. History of bowel obstruction resection. 6. History of nicotine dependence. RECOMMENDATIONS: Recommended to continue current management, continue symptomatic treatment. Incentive spirometry. DVT prophylaxis. Closely follow with Orthopedic surgery. Further recommendations to follow. MMODL / IJN: [id number] /
--- NOTE | 2023-04-02 13:59 | P.PN ---
Subjective Progress Note Date: 04/02/23 Principal diagnosis: Avascular necrosis right hip Patient seen at bedside this morning sitting in recliner chair. Patient says he did get up a little bit ago with the help of 2 nurses. Patient says it was very difficult when he is bearing weight on the right lower extremity. Patient says he has urinated since surgery was performed yesterday. Patient says if he were to go home he does have a walker and a cane. Patient says he does live at home with his . Patient says he is looking forward to working with physical therapy later today. Patient denies chest pain, fever, shortness of breath, nausea, vomiting, change in vision, loss of bowel/bladder control. Objective - Vital Signs Vital signs: Vital Signs Temp 98.3 F 04/02/23 07:13 Pulse 83 04/02/23 07:13 Resp 14 04/02/23 07:13 BP 147/83 04/02/23 07:13 Pulse Ox 100 04/02/23 07:13 FiO2 Intake & Output 04/01/23 04/02/23 04/02/23 18:59 06:59 18:59 Intake Total 1851 Output Total 200 Balance 1651 Weight 63 kg Intake: IV 1851 Output: Estimated Blood Loss 200 Other: # Voids 2 1 - Exam Right hip: Incision is clean, dry, and intact. The bulky dressing is in good condition. There is minimal soft tissue swelling and ecchymosis surrounding the medial and lateral aspects of the incision. Calf is soft, no tenderness with palpation. Plantar flexion, dorsiflexion, EHL, FHL are intact. Sensory exam to light touch throughout the extremity is intact, dorsal pedis pulses 2+. - Labs CBC & Chem 7: 04/02/23 06:31 Labs: Abnormal Lab Results - Last 24 Hours (Table) 04/02/23 Range/Units 06:31 WBC 16.5 H (3.8-10.6) k/uL Neutrophils # 14.0 H (1.3-7.7) k/uL Monocytes # 1.3 H (0-1.0) k/uL Assessment and Plan Assessment: 1. Avascular necrosis. Right hip - Postoperative day 1 status post right total hip arthroplasty Plan: 1. Avascular necrosis right hip - right total hip arthroplasty performed yesterday, 04/01/2023. Patient stable this morning. Patient does have a walker and cane at home. We will await evaluation by PT/OT before planning discharge. We will keep patient 1 more night for pain control and additional PT/OT. We will continue to see patient during his stay in hospital. Plan for discharge home tomorrow with health services pending improvement in pain and ambulation. 2. Appreciate medical management 3. Pain management - [place] 4. GI prophylaxis - senna; milk of mag; Protonix 5. DVT prophylaxis - Xarelto 6. PT/OT - WBAT w/walker and assistance as necessary 7. Encourage incentive spirometer use 8. Discharge planning - plan for home with health services tomorrow Time with Patient: Less than 30
[2023-04-02] MEDS: SENNOSIDES-DOCUSATE SODIUM 1 EACH TAB PO SCH (21:17)
[2023-04-02] MEDS: hydroCHLOROthiazide 25 MG TAB PO SCH (21:17)
[2023-04-02] MEDS: ATORVASTATIN 40 MG TAB PO SCH (21:17)
[2023-04-03] MEDS: HYDROmorphone 1 MG/ML 1 ML SYRINGE IVP PRN (02:10)
[2023-04-03] MEDS: LACTATED RINGERS 1,000 ML IV SCH (05:44)
[2023-04-03] MEDS: HYDROcodone/APAP 7.5-325MG 1 EACH TAB PO PRN ×2 (06:36→12:04)
[2023-04-03 07:51] VITALS: BP 118/86; PULSE 117; RESP 18; TEMP 99.1
[2023-04-03] MEDS: PANTOPRAZOLE 40 MG TABLET PO SCH (08:34)
[2023-04-03] MEDS: buPROPion SR 150 MG TABLET.ER PO SCH (08:34)
[2023-04-03] MEDS: RIVAROXABAN 10 MG TAB PO SCH (08:34)
[2023-04-03] MEDS: amLODIPine 10 MG TAB PO SCH (08:34)
--- NOTE | 2023-04-03 09:09 | P.PN ---
Subjective Progress Note Date: 04/03/23 Principal diagnosis: Avascular necrosis right hip Patient was seen this morning getting up with physical therapy and walk down the [place] and up-and-down stairs. Patient says he is feeling better today and is looking forward to going home later today. Patient says he does have a walker and cane at home already. Patient says he has urinated daily. Patient says he has not had bowel movement yet, however, patient says he has been passing gas. Patient denies chest pain, fever, shortness breath, nausea, vomiting, change in vision, loss of bowel/bladder control. Objective - Vital Signs Vital signs: Vital Signs Temp 99.1 F 04/03/23 07:28 Pulse 117 H 04/03/23 07:28 Resp 18 04/03/23 07:28 BP 118/86 04/03/23 07:28 Pulse Ox 99 04/03/23 07:28 FiO2 Intake & Output 04/02/23 04/03/23 04/03/23 18:59 06:59 18:59 Intake Total 640 Output Total 350 Balance 290 Intake: Intake, IV Titration 400 Amount Lactated Ringers 1,000 ml 400 @ 20 mls/hr IV .Q24H LO Rx#:[id number] Oral 240 Output: Urine 350 Other: # Voids 4 700 - Exam Right hip: Incision is clean, dry, and intact. The bulky dressing is in good condition. There is minimal soft tissue swelling and ecchymosis surrounding the medial and lateral aspects of the incision. Calf is soft, no tenderness with palpation. Plantar flexion, dorsiflexion, EHL, FHL are intact. Sensory exam to light touch throughout the extremity is intact, dorsal pedis pulses 2+. - Labs CBC & Chem 7: 04/02/23 06:31 Assessment and Plan Assessment: 1. Avascular necrosis. Right hip - Postoperative day 2 status post right total hip arthroplasty Plan: 1. Avascular necrosis right hip - right total hip arthroplasty performed 04/01/2023. Patient stable this morning. Patient does have a walker and cane at home. Patient did do well physical therapy this morning and was able walk on the hallway using a walker and walk up and down stairs. Discharge home today with health services. 2. Appreciate medical management 3. Pain management - Adair 4. GI prophylaxis - senna; milk of mag; Protonix 5. DVT prophylaxis - Xarelto; going home with eliquis 2.5 mg BID x 2 weeks 6. PT/OT - WBAT w/walker 7. Encourage incentive spirometer use 8. Discharge planning - discharge home today with health services Time with Patient: Less than 30
--- NOTE | 2023-04-03 09:14 | P.DS ---
Providers Date of admission: 04/02/23 08:42 Expected date of discharge: 04/03/23 Attending physician: Shahid Rousseau Consults: 04/01/23 09:07 Consult Physician Routine Consulting Provider: Andrew Barnes Consult Reason/Comments: medical management s/p right total hip arthroplasty; DT protocols Do you want consulting provider notified?: Yes Primary care physician: Nehemiah Aureliano [facility] Course: Date of admission: 04/01/2023 Date of discharge: 04/03/2023 Admission diagnosis: Avascular necrosis right hip Discharge diagnosis: Same Attending physician: Dr. Rousseau Surgical procedures: Right total hip arthroplasty Brief history: Patient is a 42-year-old male with a history of avascular necrosis right hip. At this point patient has failed conservative treatment measures and has opted to proceed with a elective right total hip arthroplasty. Hospital course: Details of patient's surgery can be found in operative report. Patient tolerated the procedure well and was subsequently transported to orthopedic floor. Patient's orthopeidc and medical care was provided daily. Patient had daily laboratory tests performed for evaluation of overall blood counts. Patient had daily physical therapy to include strengthening range of motion as well as education with walker ambulation. Patient was treated with Xarelto for their postoperative DVT prophylaxis during their inpatient stay. Patient was noted to have a relatively uneventful postoperative course. Patient reported satisfactory pain control with oral pain medications by postoperative day 2. Patient showed satisfactory progress with physical therapy. Patient moved steadily through the program and had no difficulty meeting the goals by postoperative day 2. Given patient's otherwise satisfactory course and having met physical therapy goals, plan is to discharge patient home with health services on postoperative day 2. Discharge condition/disposition: Patient will be discharged home with health ser vices in stable condition. Discharge medications: Instructions are given on resumption of patient's normal daily medications per primary care recommendation, in addition patient will be prescribed Dubois; senna; eliqusi 2.5 mg BID x 2 weeks. Orthopedic Discharge Instructions: 1. Wound care and infection precautions, keep incision dry and covered while showering, no lotions, creams, moisturizers. No soaking, pools, hot tubs. Do not scrub over incision. 2. Weight-bear as tolerated with walker / cane until follow-up. 3. Ice and elevate when necessary. Do not exceed 20 minutes per hour with ice pack. 4. Utilize compression sleeve until seen at first follow up appointment. 5. Pain meds and anticoagulants per prescription. 6. Pain medication has potential to cause constipation. Increase oral fluid and fiber intake. Contact primary care provider if you have not had a bowel movement within 48 hours after discharge. 7. No anti-inflammatory medication until discussed at first post operative visit, this including Motrin, Aleve, Mobic, Diclofenac. 8. Follow up in office at 2 weeks postop with Sharif Ambrosio PA-C / Ran Layne PA-C 9. Follow up with your primary care doctor 7-10 days after discharge. 10. Contact [facility] with any questions, . Keep incision clean, dry, intact. While showering, cover fusion tape with Saran wrap. Keep fusion tape on until follow-up appointment in office in 2 weeks Assessment: Avascular necrosis right hip Procedures: Right total hip arthroplasty Patient Condition at Discharge: Good Plan - Discharge Summary Discharge Rx Participant: Yes New Discharge Prescriptions: New HYDROcodone/APAP 7.5-325MG [Dubois 7.5] 1 - 2 each PO Q6HR PRN #32 tab PRN Reason: Pain Apixaban [Eliquis] 2.5 mg PO BID #60 tab Sennosides/Docusate Sodium [Senna Plus 8.6-50 mg Softgel] 1 each PO DAILY #20 capsule No Action hydroCHLOROthiazide 25 mg PO HS amLODIPine [Norvasc] 10 mg PO QAM Omeprazole [PriLOSEC] 20 mg PO QAM Atorvastatin [Lipitor] 40 mg PO HS Ergocalciferol [Vitamin D2 (1250 Mcg = 14541 Iu)] 2,000 units PO SA buPROPion SR [Wellbutrin SR] 150 mg PO BID Discharge Medication List hydroCHLOROthiazide 25 mg PO HS 07/26/19 [History] amLODIPine [Norvasc] 10 mg PO QAM 07/10/20 [History] Omeprazole [PriLOSEC] 20 mg PO QAM 07/05/21 [History] Ergocalciferol [Vitamin D2 (1250 Mcg = 22935 Iu)] 2,000 units PO SA 05/14/22 [History] Atorvastatin [Lipitor] 40 mg PO HS 08/22/22 [History] buPROPion SR [Wellbutrin SR] 150 mg PO BID 03/26/23 [History] Apixaban [Eliquis] 2.5 mg PO BID #60 tab 04/03/23 [Rx] HYDROcodone/APAP 7.5-325MG [Dubois 7.5] 1 - 2 each PO Q6HR PRN #32 tab 04/03/23 [Rx] Sennosides/Docusate Sodium [Senna Plus 8.6-50 mg Softgel] 1 each PO DAILY #20 capsule 04/03/23 [Rx] Follow up Appointment(s)/Referral(s): [facility], [NON-STAFF] - 1-2 Days ([facility] will call you to schedule your in home nursing and physical therapy visits. ) Ran Layne PAC [PHYSICIAN [employer]] - 2 Weeks Patient Instructions/Handouts: Total Hip Replacement (DC) Activity/Diet/Wound Care/Special Instructions: Orthopedic Discharge Instructions: 1. Wound care and infection precautions, keep incision dry and covered while showering, no lotions, creams, moisturizers. No soaking, pools, hot tubs. Do not scrub over incision. 2. Weight-bear as tolerated with walker / cane until follow-up. 3. Ice and elevate when necessary. Do not exceed 20 minutes per hour with ice pack. 4. Utilize compression sleeve until seen at first follow up appointment. 5. Pain meds and anticoagulants per prescription. 6. Pain medication has potential to cause constipation. Increase oral fluid and fiber intake. Contact primary care provider if you have not had a bowel movement within 48 hours after discharge. 7. No anti-inflammatory medication until discussed at first post operative visit, this including Motrin, Aleve, Mobic, Diclofenac. 8. Follow up in office at 2 weeks postop with Sharif Ambrosio PA-C / Ran Layne PA-C 9. Follow up with your primary care doctor 7-10 days after discharge. 10. Contact [facility] with any questions, . Keep incision clean, dry, intact. While showering, cover fusion tape with Saran wrap. Keep fusion tape on until follow-up appointment in office in 2 weeks
[2023-04-03] MEDS: HYDROmorphone 0.5 MG/0.5 ML SYRINGE IVP PRN (13:41)
--- NOTE | 2023-04-03 23:34 | PN ---
PROGRESS NOTE DATE OF SERVICE: 04/03/2023 SUBJECTIVE: This 42-year-old gentleman was admitted after right total hip joint arthroplasty. He is improving significantly. No chest pain, no palpitation. OBJECTIVE: VITAL SIGNS: Pulse is 99, blood pressure 150/99, respirations 17. CHEST: Clear to auscultation. ABDOMEN: Soft. LEGS: Status post surgery. LABORATORY DATA: Reviewed. ASSESSMENT: 1. Status post right total hip joint arthroplasty and avascular necrosis. 2. Hypertension. 3. Hyperlipidemia. 4. History of pericarditis. 5. History of bowel obstruction and resection. 6. History of nicotine dependence. RECOMMENDATIONS: Recommended to continue to current management, continue symptomatic treatment. DVT prophylaxis, closely with Orthopedic surgery. Further recommendations to follow. MMODL / IJN: [id number] /
[2023-04-05] MEDS ORDERED: ERGOCALCIFEROL 1,250 MCG (50,000 IU) CAPSULE PO SCH (09:00)
== END 2023-04-03 14:41 | disposition home health service (06) ==
LOC: OR 05:44 → 4SSUR 09:14 → OR 04-02 08:42 → 4SSUR 04-02 08:42
PROVIDERS: ADMIT Orthopaedic Surgery; ATTEND Orthopaedic Surgery
DX: M87.851 Other osteonecrosis, right femur (principal); G89.18 Other acute postprocedural pain; F10.10 Alcohol abuse, uncomplicated; I10 Essential (primary) hypertension; E78.5 Hyperlipidemia, unspecified; G89.29 Other chronic pain; M25.519 Pain in unspecified shoulder; M54.2 Cervicalgia; F32.A Depression, unspecified; F17.200 Nicotine dependence, unspecified, uncomplicated; Z79.899 Other long term (current) drug therapy
CPT/HCPCS: 97116; 97162; 97535; 97166; 64447; 86900; 86901; 88305; 85025; 86850; 88311; 73501; 27130; G0378 ×2; C1776; J2250; J1100; S0106 ×3; J0690 ×2; J2405; J3010; J1170 ×4; J2795; J2704

== ENCOUNTER → 2023-10-24 | Outpatient (CLI) | payer OTHER ==
[2023-10-24 14:34] LABS: Basophils # (A) 0.03 X 10*3/uL (0.00-0.10); Basophils % (A) 0.3 %; Eosinophils # (A) 0.02 X 10*3/uL (0.04-0.35); Eosinophils % (A) 0.2 %; HCT 44.9 % (39.6-50.0); HGB 15.6 g/dL (13.0-17.0); Lymphocytes # (A) 2.31 X 10*3/uL (0.90-5.00); Lymphocytes % (A) 19.8 %; MCH 30.2 pg (27.0-32.0); MCHC 34.7 g/dL (32.0-37.0); MCV 86.8 FL (80.0-97.0); Mean Platelet Volume 9.6 FL (9.5-12.2); Monocytes # (A) 1.12 X 10*3/uL (0.20-1.00); Monocytes % (A) 9.6 %; NRBC Per 100 WBC 0 X 10*3/uL (0.00-0.01); Neutrophils # (A) 8.15 X 10*3/uL (1.80-7.70); Neutrophils % (A) 69.8 %; Platelet Count 321 X 10*3/uL (140-440); RBC 5.17 X 10*6/uL (4.40-5.60); RDW 13.8 % (11.5-14.5); WBC 11.67 X 10*3/uL (4.50-10.00)
[2023-10-24 14:53] LABS: BUN/Creat Ratio 9.22 Ratio (12.00-20.00); Blood Urea Nitrogen 8.3 mg/dL (9.0-27.0); Calcium 9.9 mg/dL (8.7-10.3); Carbon Dioxide 23.2 mmol/L (21.6-31.8); Chloride 103 mmol/L (96-109); Glucose 99 mg/dL (70-110); Potassium 3.6 mmol/L (3.5-5.5); Sodium 139 mmol/L (135-145)
[2023-10-24 14:58] LABS: INR 1.04 sec (0.93-1.11); Prothrombin Time 11.2 sec (9.9-11.9)
== END | disposition home or self-care (01) ==
LOC: LABPAT 10:43
PROVIDERS: ATTEND Orthopaedic Surgery
DX: Z01.812 Encounter for preprocedural laboratory examination (principal); M16.12 Unilateral primary osteoarthritis, left hip; Z22.322 Carrier or suspected carrier of Methicillin resistant Staphylococcus aureus
CPT/HCPCS: 36415; 80048; 85025; 85610; 86850; 86900; 86901; 87070

== ENCOUNTER 2023-11-04 08:19 | Day surgery (SDC) | payer OTHER ==
[2023-10-28 12:14] VITALS: BMI 20.9
--- NOTE | 2023-11-03 09:01 | P.HPOR ---
History of Present Illness H&P Date: 11/03/23 Chief Complaint: left hip pain the patient is a 43-year-old male who presents with progressive left hip pain for the past year worsening recently. He has had anterior thigh and groin pain worse with weightbearing activities. He is having night symptoms. He does use a walker. He's tried medications without much relief. He has a history of avascular necrosis. Review of Systems as per HPI Past Medical History Past Medical History: Hyperlipidemia, Hypertension, Osteoarthritis (OA) Additional Past Medical History / Comment(s): Pericarditis, bowel obstruction, chronic neck and shoulder pain. avascular necrosis bilateral hips History of Any Multi-Drug Resistant Organisms: None Reported Past Surgical History: Bowel Resection, Joint Replacement Additional Past Surgical History / Comment(s): pain clinic procedures, abdominal surgery for scar tissue, RT JANET, CERVICAL FUSION Past Anesthesia/Blood Transfusion Reactions: No Reported Reaction Smoking Status: Current every day smoker - Past Family History Mother Family Medical History: No Reported History Additional Family Medical History / Comment(s): Father Family Medical History: Coronary Artery Disease (CAD) Medications and Allergies Home Medications Medication Instructions Recorded Confirmed Type hydroCHLOROthiazide 25 mg PO HS 07/26/19 10/28/23 History amLODIPine [Norvasc] 10 mg PO QAM 07/10/20 10/28/23 History Omeprazole [PriLOSEC] 20 mg PO QAM 07/05/21 10/28/23 History Ergocalciferol [Vitamin D2 (1250 2,000 units PO SA 05/14/22 10/28/23 History Mcg = 35132 Iu)] Atorvastatin [Lipitor] 40 mg PO HS 08/22/22 10/28/23 History buPROPion SR [Wellbutrin SR] 150 mg PO BID 03/26/23 10/28/23 History Sennosides/Docusate Sodium [Senna 1 each PO DAILY #20 capsule 04/03/23 10/28/23 Rx Plus 8.6-50 mg Softgel] Allergies Allergy/AdvReac Type Severity Reaction Status Date / Time lisinopril Allergy Rash/Hives, Verified 10/28/23 11:43 SWELLING OF FACE Physical Examination - Hip left Gait: antalgic Tenderness with palpation: anterior Pain with motion: internal rotation and hip flexion ROM: flexion: 70 degrees ROM: internal rotation: 10 degrees ROM: external rotation: 50 degrees Crepitus with motion: Yes Strength: extension: 5/5 Strength: flexion: 5/5 Strength: adduction: 5/5 Tests: impingement tests: positive Results the patient is a well-developed well-nourished male approximately 5 foot 9, 138 pounds of endomorphic habitus. HEENT exam is nonfocal, neck is supple. He has painful passive motion of the left hip. He has no clinical leg length discrepancy. He has an antalgic gait pattern. His distal neurovascular appears intact in the left lower extremity. - Diagnostic results Hip x-ray: image reviewed (2 views of the left hip obtained in the office show lytic areas involving the left femoral head. No definite collapse is noted.) Assessment and Plan Assessment: left hip avascular necrosis Plan: I talked to the patient at length regarding his condition along with treatment options. He is quite symptomatic and limited because of pain related to his left hip despite attempted conservative measures. After a thorough discussion he opts to proceed with surgery. We'll proceed with left total hip arthroplasty utilizing a lateral approach. Risks and benefits were discussed at length in layman's terms. We will institute DVT prophylaxis postoperatively.
[2023-11-04] MEDS ORDERED: METOCLOPRAMIDE 5 MG/ML 2 ML VIAL IVP PRN (08:47)
[2023-11-04] MEDS ORDERED: LIDOCAINE 1% (10MG/ML) FOR IV START INTRADERMA PRN (08:47)
[2023-11-04] MEDS ORDERED: DEXAMETHASONE SOD PHOSPHATE 4 MG/ML 1 ML VIAL IV ONE (08:47)
[2023-11-04] MEDS ORDERED: LACTATED RINGERS 1,000 ML IV SCH (08:47)
[2023-11-04] MEDS ORDERED: MIDAZOLAM 2 MG/2 ML VIAL IV PRN (08:47)
[2023-11-04] MEDS ORDERED: HYDROmorphone 0.5 MG/0.5 ML SYRINGE IVP PRN ×2 (08:47→12:18)
[2023-11-04] MEDS ORDERED: ONDANSETRON 4 MG/2 ML VIAL IVP ONE ×2 (08:47→09:24)
[2023-11-04] MEDS ORDERED: fentaNYL (PF) 50 MCG/ML 2 ML AMP IVP PRN (08:47)
[2023-11-04] MEDS ORDERED: DEXAMETHASONE SOD PHOSPHATE 4 MG/ML 1 ML VIAL IVP ONE (09:25)
[2023-11-04] MEDS ORDERED: MIDAZOLAM 2 MG/2 ML VIAL IVP ONE (09:38)
[2023-11-04] MEDS ORDERED: fentaNYL (PF) 50 MCG/1 ML VIAL IVP ONE (09:42)
--- NOTE | 2023-11-04 09:51 | P.ANPRN ---
Procedure Note - Anesthesia - Nerve Block Performed Left Bladimir Single Time Out Performed: Yes Date of Procedure: 11/04/23 Procedure Start Time: 09:36 Procedure Stop Time: :42 Location of Patient: PreOp Indication: Acute Post-Operative Pain, Analgesia, Requested by Surgeon Sedation Type: Sedate with meaningful contact maintained Preparation: Sterile Prep Position: Supine Catheter: None Needle Types: Pajunk Needle Gauge: 21 Ultrasound used to visualize needle placement: Yes Ultrasound used to observe medication spread: Yes Injectate: 0.5% Ropivacaine (see comment for volume) (Ropiv 15ml+NS10ml) Blood Aspirated: No Pain Paresthesia on Injection Noted: No Resistance on Injection: Normal Image Stored and Saved: Yes Events: Uneventful and Well Tolerated
[2023-11-04] MEDS ORDERED: IPRATROPIUM-ALBUTEROL 3 ML NEB ONE (09:54)
[2023-11-04] MEDS ORDERED: DUOVISC KIT (BLUE BOX) INTRAOCULA ONE (09:59)
[2023-11-04] MEDS ORDERED: MIDAZOLAM 2 MG/2 ML VIAL ONE (10:36)
[2023-11-04] MEDS ORDERED: fentaNYL (PF) 50 MCG/ML 2 ML AMP ONE (10:36)
[2023-11-04] MEDS ORDERED: PROPOFOL 10 MG/ML 20 ML VIAL IV ONE (10:36)
[2023-11-04] MEDS ORDERED: KETAMINE HCL IN 0.9 % NACL 50 MG/5 ML SYRINGE ONE (10:36)
[2023-11-04] MEDS ORDERED: SODIUM CHLORIDE 0.9% (PF) 10 ML VIAL ONE (10:36)
[2023-11-04] MEDS ORDERED: ROPIVACAINE 5 MG/ML 30 ML VIAL ONE (10:36)
[2023-11-04] MEDS ORDERED: TRANEXAMIC 1,000 MG/100ML-NACL PREMIX BAG ONE (10:36)
[2023-11-04] MEDS ORDERED: ceFAZolin 1,000 MG in SODIUM CHLORIDE 0.9% 1,000 ML IRRIGATION ONE (11:02)
[2023-11-04] MEDS ORDERED: HYDROcodone/APAP 5-325MG 1 EACH TAB PO PRN (12:18)
[2023-11-04] MEDS ORDERED: NALOXONE 0.4 MG/ML 1 ML VIAL IV PRN (12:18)
[2023-11-04] MEDS ORDERED: MAGNESIUM HYDROXIDE 2,400 MG/30 ML CUP PO PRN (12:18)
[2023-11-04] MEDS ORDERED: hydrOXYzine pamoate 25 MG CAP PO PRN (12:18)
--- NOTE | 2023-11-04 12:40 | P.OP ---
Date of Procedure: 11/04/23 Preoperative Diagnosis: Left hip avascular necrosis Postoperative Diagnosis: Same Procedure(s) Performed: Left total hip arthroplastypress-fitlateral approach Implants: Depuy Corail 135 the high offset press-fit collared femoral stem, 36+1.5 cobalt chrome femoral head, 52mm [employer] acetabular shell with neutral polyethylene liner. Anesthesia: regional, spinal Surgeon: Shahid Rousseau Regional Facilities Manager #1: Ran Layne Estimated Blood Loss (ml): 150 Pathology: none sent (150) Condition: stable Disposition: PACU Indications for Procedure: The patient is a 43-year-old male who presents with progressive left hip pain secondary to progressive avascular necrosis despite attempted conservative measures. A discussion of the risks and benefits of operative intervention versus continued conservative measures was made with the patient. He opted to proceed with surgery. Operative risks to include infection, neurovascular injury, leg length discrepancy, fracture, possible component loosening/failure and need for subsequent procedures was discussed. Informed consent was obtained. Operative Findings: As below Description of Procedure: The patient was brought to the operating room, and after induction of spinal anesthesia was placed in a lateral decubitus position. The bony prominences were appropriately padded. The pelvis was stable perpendicular to the floor with a pegboard. The left lower extremity was prepped and draped in normal fashion. A 12 cm incision was then made centered over the greater trochanter extending superiorly to level the ASIS and distally in line with the femoral shaft. The skin and subcutaneous tissues were divided sharply. Electrocautery was used for hemostasis. The fascia cristian and gluteus obi fascia was split in line with the skin incision. The muscle fibers were bluntly dissected proximally. A self-retaining retractor was placed. The anterior and posterior margins of the gluteus medius muscles identified and the anterior two thirds was detached from the greater trochanter with electrocautery. The gluteus minimus tendon was identified and detached in a similar fashion. A wide capsulotomy was performed. The femoral neck fracture was identified in the lower neck cut was made approximately 1 1/2 cm above the level of the lesser trochanter with a sagittal saw at a 45 the shaft. The head was then extracted with a corkscrew. Attention was then paid towards preparing the acetabular. Anterior and posterior retractors were placed. The remaining capsular labral tissues debrided sharply clearly defining the acetabular margins. Began reaming with a 49 mm reamer taking care to initially medialize, then reaming at 45 of abduction and 20 of anteversion. Sequential reaming is performed up to 51 mm. This was down to bleeding bony surface. A trial 52 mm acetabular shell was inserted at 45 of abduction and 20 of anteversion. This was fully seated. There was good rim fit and stability. A neutral polyethylene liner was then impacted. Care taken to avoid any soft tissue interposition. Attention was then paid towards preparing the proximal femur. A box chisel was used to open the metaphyseal region. A canal finder was used to find the femoral canal. Sequential broaching was performed up to a size 11. This is placed in 15 of anteversion with the leg perpendicular floor judging off the trans-epicondylar axis. There is good rotational stability. A calcar mill was used to fashion the medial calcar. A trial 135 high offset neck along with a 36 mm +1.5 trial head was placed. The hip was gently reduced. It was taken through range of motion. I felt to be stable in flexion and extension with internal and external rotation. I felt there was adequate denominational of soft tissue tension. The hip was gently dislocated. The trial components removed. Pulsatile lavage was utilized. The final size 11 135 high offset collared femoral stem was inserted again with the leg perpendicular to the floor in 15 of anteversion. Again there was good rotational stability. A 36mm + 1.5 cobalt chrome femoral head was gently impacted. The hip was gently reduced. Again it was taken through motion and felt to be stable in flexion and extension with internal and external rotation. Pulsatile lavage was again utilized. With the leg in abduction the gluteus minimus and medius tendons reattached to the greater trochanter with #2 Ethibond suture. There was minimal drainage therefore a deep drain was not placed. The fascia cristian and gluteus obi fascia was closed with #2 Ethibond suture. The subcutaneous tissues were reapproximated interrupted 2-0 Vicryl sutures. The skin was reapproximated with 3-0 subcuticular strata fix suture. Skin tape and adhesive was applied. A sterile dressing was applied. The patient was awoken from sedation and transferred to recovery room in good condition. Blood loss was estimated 150 mL. No complications were incurred. Sponge and needle counts were correct in the case. Ran SANTANA assisted during the major composes case to include exposure, implantation, and closure.
--- NOTE | 2023-11-04 13:13 | XR ---
EXAMINATION TYPE: XR Hip Limited LT DATE OF EXAM: 11/04/2023 1:01 PM CLINICAL INDICATION:Male, 43 years old with history of s/p left total hip arthroplasty (lateral); [facility] COMPARISON: None. TECHNIQUE: XR Hip Limited LT; hip was examined in the frontal FINDINGS: Post arthroplasty changes, hardware is intact, alignment is appropriate. No evidence of fra cture. Postoperative changes of the soft tissues with subcutaneous gas. No evidence of any acute osse ous pathology or joint dislocation. IMPRESSION: Hip arthroplasty with hardware intact and in appropriate alignment. No acute fracture.
[2023-11-04] MEDS: HYDROmorphone 1 MG/ML 1 ML SYRINGE IVP PRN ×2 (15:33→20:53)
[2023-11-04] MEDS: HYDROcodone/APAP 7.5-325MG 1 EACH TAB PO PRN (17:26)
[2023-11-04] MEDS: buPROPion SR 150 MG TABLET.ER PO SCH (20:25)
[2023-11-04] MEDS ORDERED: ATORVASTATIN 40 MG TAB PO SCH (21:00)
[2023-11-04] MEDS ORDERED: SENNOSIDES-DOCUSATE SODIUM 1 EACH TAB PO SCH (21:00)
--- NOTE | 2023-11-04 23:32 | P.CONS ---
History of Present Illness - Reason for Consult Consult date: 11/04/23 Medical management - Chief Complaint Left total hip arthroplasty - History of Present Illness Patient is a 43-year-old male with known history of hypertension, hyperlipidemia, osteoarthritis and avascular necrosis of bilateral hips and currently everyday smoker was admitted to hospital for elective left total hip arthroplasty. Patient tolerated the procedure very well. Currently resting in the bed. Awake alert and oriented x 3. No complaints of chest pain or shortness of breath. Postoperatively blood pressure is 103/63 pulse is 60 respiration 16 and pulse ox 98% on room air. No complaints of dizziness or lightheadedness. Patient is complaining of left ear pain for the past few days but denies any discharge. No fever no chills. No nausea vomiting or abdominal pain or diarrhea. Denies any recent URI symptoms. Laboratory data is not available at this time. Review of Systems Constitutional: Patient denies any fever or chills . no Generalized weakness. Abdomen: Patient denied any nausea or vomiting or abd. pain Cardiovascular: Patient denies any chest pain or short of breath no palpitations. Respiratory: patient denied any cough . no sputum production. No shortness of breath Neurologic: Patient denied any numbness or tingling or headache. Musculoskeletal: Patient denies any complaints of joint swelling or deformity. Skin: Negative Psychiatric: Negative Endocrine: No heat or cold intolerance. No recent weight gain. Genitourinary: No dysuria or hematuria. All other 14 point ROS negative except the above Past Medical History Past Medical History: Hyperlipidemia, Hypertension, Osteoarthritis (OA) Additional Past Medical History / Comment(s): Pericarditis, bowel obstruction, chronic neck and shoulder pain. avascular necrosis bilateral hips History of Any Multi-Drug Resistant Organisms: None Reported Past Surgical History: Bowel Resection, Joint Replacement Additional Past Surgical History / Comment(s): pain clinic procedures, abdominal surgery for scar tissue, RT JANET, CERVICAL FUSION Past Anesthesia/Blood Transfusion Reactions: No Reported Reaction Smoking Status: Current every day smoker - Past Family History Mother Family Medical History: No Reported History Additional Family Medical History / Comment(s): Father Family Medical History: Coronary Artery Disease (CAD) Medications and Allergies Home Medications Medication Instructions Recorded Confirmed Type hydroCHLOROthiazide 25 mg PO HS 07/26/19 11/04/23 History amLODIPine [Norvasc] 10 mg PO QAM 07/10/20 11/04/23 History Omeprazole [PriLOSEC] 20 mg PO QAM 07/05/21 11/04/23 History Ergocalciferol [Vitamin D2 (1250 2,000 units PO SA 05/14/22 11/04/23 History Mcg = 56862 Iu)] Atorvastatin [Lipitor] 40 mg PO HS 08/22/22 11/04/23 History buPROPion SR [Wellbutrin SR] 150 mg PO BID 03/26/23 11/04/23 History Sennosides/Docusate Sodium [Senna 1 each PO DAILY #20 capsule 04/03/23 11/04/23 Rx Plus 8.6-50 mg Softgel] Allergies Allergy/AdvReac Type Severity Reaction Status Date / Time lisinopril Allergy Rash/Hives, Verified 11/04/23 08:59 SWELLING OF FACE Physical Exam Vitals: Vital Signs Temp Pulse Resp BP Pulse Ox 11/04/23 15:29 97.3 F L 85 18 119/78 99 11/04/23 14:30 97 16 114/76 98 11/04/23 14:00 69 16 103/68 98 11/04/23 13:45 63 16 102/68 98 11/04/23 13:34 60 16 103/63 98 11/04/23 13:19 61 16 111/71 100 11/04/23 13:04 59 L 16 124/79 99 11/04/23 12:49 60 16 121/80 100 11/04/23 12:32 96.5 F L 79 16 137/93 99 11/04/23 09:49 74 16 117/70 99 11/04/23 09:08 97.5 F L 85 16 135/86 99 Intake and Output 11/04/23 11/04/23 11/04/23 06:59 14:59 22:59 Intake Total 1051 Output Total 150 Balance 901 Intake: IV 1051 Output: Estimated Blood Loss 150 Other: Weight 62.1 kg PHYSICAL EXAMINATION: Patient is lying in the bed comfortably, no acute distress, awake alert and oriented.. HEENT: Normocephalic. Neck is supple. Pupils reactive. Nostrils clear. Oral cavity is moist. Neck reveals no JVD, carotid bruits, or thyromegaly. CHEST EXAMINATION: Trachea is central. Symmetrical expansion. Lung wesley clear to auscultation and percussion. CARDIAC: Normal S1, S2 with no gallops. No murmurs ABDOMEN: Soft. Bowel sounds present. Nontender. No organomegaly. No abdominal bruits. Extremities: reveal no edema. No clubbing or cyanosis Neurologically awake, alert, oriented x3 with well-coordinated movements. No focal deficits noted Skin: No rash or skin lesions. Psychiatric: Coperative. Nonsuicidal, Musculoskeletal: No joint swelling or deformity. Left hip surgical site intact. No swelling.. Assessment and Plan Assessment: Left total hip arthroplasty press-fit lateral approach. Postoperative day 0 Avascular necrosis of bilateral hips. Likely due to prior history of alcohol use Hypertension Hyperlipidemia Osteoarthritis DVT prophylaxis and GI prophylaxis Plan: Patient will be continued on current pain management, bowel regimen and encourage incentive spirometry. Will be continued on Norvasc and chlorthalidone is on hold. Continue to monitor blood pressure closely. Continue with her home medication including Wellbutrin. Ordered CBC and BMP tomorrow. Will continue to follow closely and further recommendations based on the clinical course. Thank you kindly for your consult.
[2023-11-05] MEDS: HYDROcodone/APAP 7.5-325MG 1 EACH TAB PO PRN ×2 (00:53→13:18)
[2023-11-05] MEDS ORDERED: PANTOPRAZOLE 40 MG TABLET PO SCH (07:30)
[2023-11-05] MEDS: HYDROmorphone 1 MG/ML 1 ML SYRINGE IVP PRN (08:27)
[2023-11-05] MEDS ORDERED: SENNOSIDES-DOCUSATE SODIUM 1 EACH TAB PO SCH (09:00)
[2023-11-05] MEDS ORDERED: RIVAROXABAN 10 MG TAB PO SCH (09:00)
[2023-11-05] MEDS ORDERED: amLODIPine 10 MG TAB PO SCH (09:00)
[2023-11-05] MEDS: buPROPion SR 150 MG TABLET.ER PO SCH (09:05)
--- NOTE | 2023-11-05 10:25 | P.PN ---
Subjective Progress Note Date: 11/05/23 Principal diagnosis: Status post left total hip arthroplasty, lateral approach Patient is evaluated at bedside, he is resting comfortably. He is been up and ambulating with minimal difficulty. He has been urinating with no issues. His pain is well-controlled. Denies headaches, lightheadedness, chest pain or shortness of breath Objective - Vital Signs Vital signs: Vital Signs Temp 98.4 F 11/05/23 07:29 Pulse 76 11/05/23 07:29 Resp 19 11/05/23 07:29 BP 117/79 11/05/23 07:29 Pulse Ox 97 11/05/23 07:50 FiO2 Intake & Output 11/04/23 11/05/23 11/05/23 18:59 06:59 18:59 Intake Total 1051 Output Total 150 1350 250 Balance 901 -1350 -250 Weight 62.1 kg Intake: IV 1051 Output: Urine 1350 250 Estimated Blood Loss 150 - Exam Left lower extremity: Incision is clean, dry, and intact. The surgical dressing is in good condition. There is minimal soft tissue swelling and ecchymosis surrounding the medial and lateral aspects of the incision. Calf is soft, no tenderness with palpation. Plantar flexion, dorsiflexion, EHL, FHL are intact. Sensory exam to light touch throughout the extremity is intact, dorsal pedis pulses 2+. Assessment and Plan Assessment: Postoperative day #1 status post left total hip arthroplasty, lateral approach Plan: Pain control, plan for discharge home on [place] DVT prophylaxis, patient will resume Eliquis 2.5mg bid, he has original script from his first hip surgery in 04/04 Wound care instructions were discussed, this including one to remove surgical bandage, shower instructions Weight-bear as tolerated with walker, home healthcare after discharge Medical recommendations appreciated Discharge planning: Plan for discharge home later this afternoon Time with Patient: Less than 30
--- NOTE | 2023-11-05 10:34 | P.DS ---
Providers Date of admission: 11/04/2023 Expected date of discharge: 11/05/23 Attending physician: Shahid Rousseau Consults: 11/04/23 12:18 Consult Physician Routine Consulting Provider: Andrew Barnes Consult Reason/Comments: medical management s/p left total hip arthroplasty (lateral) Do you want consulting provider notified?: Yes Primary care physician: Nehemiah Bedoya [facility] Course: Date of admission: 11/04/2023 Date of discharge: 11/05/2023 Admission diagnosis: Status post left total hip arthroplasty, lateral approach Discharge diagnosis: Same Attending physician: Dr. Rousseau Surgical procedures: Left total hip arthroplasty, lateral approach Brief history: Patient is a 43-year-old male with a history of left hip avascular necrosis. At this point patient has failed conservative treatment measures and has opted to proceed with a elective left total hip arthroplasty, lateral approach. Hospital course: Details of patient's surgery can be found in operative report. Patient tolerated the procedure well and was subsequently transported to orthopedic floor. Patient's orthopeidc and medical care was provided daily. Patient had daily laboratory tests performed for evaluation of overall blood counts. Patient had daily physical therapy to include strengthening range of motion as well as education with walker ambulation. Patient was treated with Xarelto for their postoperative DVT prophylaxis during their inpatient stay. Patient was noted to have a relatively uneventful postoperative course. Patient reported satisfactory pain control with oral pain medications by postoperative day 1. Patient showed satisfactory progress with physical therapy. Patient moved steadily through the program and had no difficulty meeting the goals by postoperative day 1. Given patient's otherwise satisfactory course and having met physical therapy goals, plan is to discharge patient home on postoperative day 1. Discharge condition/disposition: Patient will be discharged home in stable condition. Discharge medications: Instructions are given on resumption of patient's normal daily medications per primary care recommendation, in addition patient will be prescribed Stout 7.5 mg/325 mg, senna S, Eliquis 2.5mg. Discharge instructions: 1. Wound care and infection precautions, keep incision dry and covered while showering, no lotions, creams, moisturizers. No soaking, tubs, pools, hottubs. Do not scrub over the incision. 2. Weight-bear as tolerated with walker / cane until follow-up. 3. Ice and elevate when necessary. Do not exceed 20 minutes per hour with ice pack. 4. Utilize compression sleeve until seen at first follow up appointment. 5. Visiting nursing care. 6. Home physical therapy. 7. Pain meds and anticoagulants per prescription. 8. Pain medication has potential to cause constipation. Increase oral fluid and fiber intake. Contact primary care provider if you have not had a bowel movement within 48 hours after discharge 9. No anti-inflammatory medication until discussed at first post operative visit, this including Motrin, Aleve, Mobic, Diclofenac. 10. Follow up in office at 2 weeks postop with Sharif Ambrosio PA-C/Ran Rojas 11. Follow up with your primary care doctor 7-10 days after discharge. 12. Contact [facility] with any questions, . Procedures: Left total hip arthroplasty, lateral approach Patient Condition at Discharge: Good Plan - Discharge Summary Discharge Rx Participant: Yes New Discharge Prescriptions: New Sennosides/Docusate Sodium [Senna-S 8.6-50 mg Tablet] 2 each PO DAILY PRN #30 tablet PRN Reason: Constipation Apixaban [Eliquis] 2.5 mg PO BID #60 tab HYDROcodone/APAP 7.5-325MG [Stout 7.5] 1 each PO Q6HR PRN #28 tab PRN Reason: Pain No Action hydroCHLOROthiazide 25 mg PO HS amLODIPine [Norvasc] 10 mg PO QAM Omeprazole [PriLOSEC] 20 mg PO QAM Atorvastatin [Lipitor] 40 mg PO HS Ergocalciferol [Vitamin D2 (1250 Mcg = 67498 Iu)] 2,000 units PO SA buPROPion SR [Wellbutrin SR] 150 mg PO BID Sennosides/Docusate Sodium [Senna Plus 8.6-50 mg Softgel] 1 each PO DAILY #20 capsule Discharge Medication List hydroCHLOROthiazide 25 mg PO HS 07/26/19 [History] amLODIPine [Norvasc] 10 mg PO QAM 07/10/20 [History] Omeprazole [PriLOSEC] 20 mg PO QAM 07/05/21 [History] Ergocalciferol [Vitamin D2 (1250 Mcg = 35102 Iu)] 2,000 units PO SA 05/14/22 [History] Atorvastatin [Lipitor] 40 mg PO HS 08/22/22 [History] buPROPion SR [Wellbutrin SR] 150 mg PO BID 03/26/23 [History] Sennosides/Docusate Sodium [Senna Plus 8.6-50 mg Softgel] 1 each PO DAILY #20 capsule 04/03/23 [Rx] Apixaban [Eliquis] 2.5 mg PO BID #60 tab 11/05/23 [Rx] HYDROcodone/APAP 7.5-325MG [Stout 7.5] 1 each PO Q6HR PRN #28 tab 11/05/23 [Rx] Sennosides/Docusate Sodium [Senna-S 8.6-50 mg Tablet] 2 each PO DAILY PRN #30 tablet 11/05/23 [Rx] Follow up Appointment(s)/Referral(s): Guanako Ambrosio PAC [PHYSICIAN WEBSITE PROGRAMMER] - 2 Weeks Activity/Diet/Wound Care/Special Instructions: Orthopedic Discharge Instructions: 1. Wound care and infection precautions, keep incision dry and covered while showering, no lotions, creams, moisturizers. No soaking, pools, hot tubs. Do not scrub over incision. 2. Weight-bear as tolerated with walker / cane until follow-up. 3. Ice and elevate when necessary. Do not exceed 20 minutes per hour with ice pack. 4. Utilize compression sleeve until seen at first follow up appointment. 5. Pain meds and anticoagulants per prescription. 6. Pain medication has potential to cause constipation. Increase oral fluid and fiber intake. Contact primary care provider if you have not had a bowel movement within 48 hours after discharge. 7. No anti-inflammatory medication until discussed at first post operative visit, this including Motrin, Aleve, Mobic, Diclofenac. 8. Follow up in office at 2 weeks postop with Sharif Ambrosio PA-C/Ran Layne PA-C 9. Follow up with your primary care doctor 7-10 days after discharge. 10. Contact [facility] with any questions, . Wound care instructions: 1. Okay to remove postoperative dressing as of 11/06/2023 2. Keep incision covered and dry while showering, do not remove surgical tape until postoperative appointment Discharge Disposition: HOME WITH HOME HEALTH SERVICES
[2023-11-05 11:03] LABS: HCT 37.6 % (39.6-50.0); HGB 12.7 g/dL (13.0-17.0); MCHC 33.8 g/dL (32.0-37.0); MCV 88.7 FL (80.0-97.0); NRBC Per 100 WBC 0 X 10*3/uL (0.00-0.01); Platelet Count 260 X 10*3/uL (140-440); RBC 4.24 X 10*6/uL (4.40-5.60); RDW 13.7 % (11.5-14.5); WBC 14.52 X 10*3/uL (4.50-10.00)
[2023-11-05 11:21] LABS: BUN/Creat Ratio 13.38 Ratio (12.00-20.00); Blood Urea Nitrogen 10.7 mg/dL (9.0-27.0); Calcium 9.2 mg/dL (8.7-10.3); Chloride 100 mmol/L (96-109); Glucose 134 mg/dL (70-110); Potassium 3.8 mmol/L (3.5-5.5); Sodium 136 mmol/L (135-145)
[2023-11-05 11:35] LABS: Basophils # (M) 0 X 10*3/uL (0.00-0.10); Eosinophils # (M) 0 X 10*3/uL (0.04-0.35); Lymphocytes # (M) 0.73 X 10*3/uL (0.90-5.00); Monocytes # (M) 2.18 X 10*3/uL (0.20-1.00); Neutrophils # (M) 11.62 X 10*3/uL (1.80-7.70); Neutrophils % (M) 80 %
[2023-11-05 14:07] VITALS: BP 145/91; PULSE 82; RESP 18; TEMP 98.5
--- NOTE | 2023-11-06 08:52 | P.PN ---
Subjective Progress Note Date: 11/05/23 - Reason for Consult Consult date: 11/04/23 Medical management - Chief Complaint Left total hip arthroplasty - History of Present Illness Patient is a 43-year-old male with known history of hypertension, hyperlipi demia, osteoarthritis and avascular necrosis of bilateral hips and currently everyday smoker was admitted to hospital for elective left total hip arthroplasty. Patient tolerated the procedure very well. Currently resting in the bed. Awake alert and oriented x 3. No complaints of chest pain or sh ortness of breath. Postoperatively blood pressure is 103/63 pulse is 60 respiration 16 and pulse ox 98% on room air. No complaints of dizziness or lightheadedness. Patient is complaining of left ear pain for the past few days but denies any discharge. No fever no chills. No nausea vomiting or abdominal pain or diarrhea. Denies any recent URI symptoms. Laboratory data is not available at this time. 11/05/2023 Patient is seen in follow-up today and was able to work with physical therapy up and down the halls and reports will be going home and has help in the home. Patient is currently afebrile with no reports of chest pain or shortness of breath. Patient with incentive spirometer at the bedside encouraged the patient to continue using at least 10 times every hour while awake. Patient is tolerating diet with no reported nausea or vomiting. Patient hip site is clean dry and intact. Patient medically stable once cleared by orthopedics for discharge. Review of systems: Constitutional: No reports of fatigue, fever, or chills Cardiovascular: No reports of chest pain or palpitations Respiratory: No reports of shortness of breath or cough GI: No reports of nausea, vomiting, or diarrhea : No reports of dysuria or retention Neurovascular: reports of weakness and some left hip pain but manageable All medications have been reviewed PHYSICAL EXAMINATION: Patient is sitting up in the chair comfortably, no acute distress, awake alert and oriented.. HEENT: Normocephalic. Neck is supple. Pupils reactive. Nostrils clear. Oral cavity is moist. Neck reveals no JVD, carotid bruits, or thyromegaly. CHEST EXAMINATION: Trachea is central. Symmetrical expansion. Lung wesley clear to auscultation and percussion. CARDIAC: Normal S1, S2 with no gallops. No murmurs ABDOMEN: Soft. Bowel sounds present. Nontender. No organomegaly. No abdominal bruits. Extremities: reveal no edema. No clubbing or cyanosis. Left hip surgical site is clean dry and intact Neurologically awake, alert, oriented x3 with well-coordinated movements. No focal deficits noted Skin: No rash or skin lesions. Psychiatric: Coperative. Nonsuicidal, Musculoskeletal: No joint swelling or deformity. Left hip surgical site intact. No swelling.. Assessment: Left total hip arthroplasty press-fit lateral approach. Postoperative day 1 Avascular necrosis of bilateral hips. Likely due to prior history of alcohol use Hypertension Hyperlipidemia Osteoarthritis DVT prophylaxis and GI prophylaxis Plan: Patient will be continued on current pain management, bowel regimen and encourage incentive spirometry. Encouraged at least 10 times every hour while awake including taking home as patient reports he will be going home later today Will be continued on Norvasc and chlorthalidone remains on hold. Continue to monitor blood pressure closely. Continue with her home medication including Wellbutrin. Will continue to follow closely and further recommendations based on the clinical course. The impression and plan of care has been dictated by Renetta Mcgrath, Nurse Practitioner as directed. Dr. Angela MD I have performed a history and examination and MDM of this patient, discussed the same with the dictator, and agree with the dictator's assessment and plan as written ,documented as a scribe. Based on total visit time, I have performed more than 50% of the visit. Objective - Vital Signs Vital signs: Vital Signs Temp 98.4 F 11/05/23 07:29 Pulse 76 11/05/23 07:29 Resp 19 11/05/23 07:29 BP 117/79 11/05/23 07:29 Pulse Ox 97 11/05/23 07:50 FiO2 Intake & Output 11/04/23 11/05/23 11/05/23 18:59 06:59 18:59 Intake Total 1051 Output Total 150 1350 250 Balance 901 -1350 -250 Weight 62.1 kg Intake: IV 1051 Output: Urine 1350 250 Estimated Blood Loss 150 - Labs CBC & Chem 7: 11/05/23 06:23 11/05/23 06:23
== END 2023-11-05 14:32 | disposition home health service (06) ==
LOC: OR 08:19 → 4SSUR 12:32 → OR 11-05 14:32
PROVIDERS: ATTEND Orthopaedic Surgery
DX: M87.88 Other osteonecrosis, other site (principal); I10 Essential (primary) hypertension; G89.29 Other chronic pain; E78.5 Hyperlipidemia, unspecified; F17.200 Nicotine dependence, unspecified, uncomplicated; Z79.01 Long term (current) use of anticoagulants; Z88.8 Allergy status to other drugs, medicaments and biological substances; Z79.899 Other long term (current) drug therapy
CPT/HCPCS: 94760; 97161; 97166; 64447; 80048; 85025; 73501; 27130; C1776; J2250; J1100; S0106 ×2; J0690 ×3; J2405; J1170 ×2; J3010

== ENCOUNTER → 2023-12-05 | Outpatient (CLI) | payer OTHER ==
[2023-12-05 15:04] LABS: Basophils # (A) 0.03 X 10*3/uL (0.00-0.10); Basophils % (A) 0.3 %; Eosinophils # (A) 0.02 X 10*3/uL (0.04-0.35); Eosinophils % (A) 0.2 %; HCT 41.4 % (39.6-50.0); HGB 13.9 g/dL (13.0-17.0); Lymphocytes # (A) 2.75 X 10*3/uL (0.90-5.00); Lymphocytes % (A) 30.7 %; MCHC 33.6 g/dL (32.0-37.0); MCV 89.2 FL (80.0-97.0); Mean Platelet Volume 10.3 FL (9.5-12.2); Monocytes # (A) 0.72 X 10*3/uL (0.20-1.00); NRBC Per 100 WBC 0 X 10*3/uL (0.00-0.01); Neutrophils # (A) 5.41 X 10*3/uL (1.80-7.70); Neutrophils % (A) 60.6 %; Platelet Count 298 X 10*3/uL (140-440); RBC 4.64 X 10*6/uL (4.40-5.60); RDW 14.8 % (11.5-14.5); WBC 8.95 X 10*3/uL (4.50-10.00)
[2023-12-05 15:47] LABS: Chol/HDL Ratio 3.23 Ratio; LDL Cholesterol,Calculated 37.7 mg/dL (0.0-131.0); Prostate Specific Antigen 0.77 ng/mL (0.000-2.500)
[2023-12-05 15:48] LABS: ALT 19 U/L (10-49); AST 28 U/L (14-35); Albumin 4.8 g/dL (3.8-4.9); Albumin/Globulin Ratio 1.66 Ratio (1.60-3.17); Alkaline Phosphatase 156 U/L (41-126); BUN/Creat Ratio 9.12 Ratio (12.00-20.00); Blood Urea Nitrogen 7.3 mg/dL (9.0-27.0); Calcium 10.2 mg/dL (8.7-10.3); Carbon Dioxide 25.4 mmol/L (21.6-31.8); Chloride 101 mmol/L (96-109); Globulin 2.9 g/dL (1.6-3.3); Glucose 107 mg/dL (70-110); Potassium 3.9 mmol/L (3.5-5.5); Sodium 141 mmol/L (135-145); Total Bilirubin 0.4 mg/dL (0.3-1.2); Total Protein 7.7 g/dL (6.2-8.2)
== END | disposition home or self-care (01) ==
LOC: LABWHC1 09:38
PROVIDERS: ATTEND Family Medicine
DX: Z00.00 Encounter for general adult medical examination without abnormal findings (principal); N40.0 Benign prostatic hyperplasia without lower urinary tract symptoms
CPT/HCPCS: 36415; 80053; 80061; 82306; 84153; 85025

== ENCOUNTER → 2024-03-15 | Outpatient (CLI) | payer OTHER ==
--- NOTE | 2024-03-15 19:16 | MR ---
EXAMINATION TYPE: MR brain wo con DATE OF EXAM: 03/15/2024 5:20 PM CLINICAL INDICATION:Male, 43 years old with history of R41.3 Other amnesia; PHH, Memory issues for th e past few months COMPARISON: None. TECHNIQUE: Multi planar, multi sequence imaging was performed through the brain including: T1, T2, In version recovery, Diffusion weighted imaging, and gradient echo imaging. No gadolinium was given. FINDINGS: The hunter-white junctions, ventricular system, basal cisterns appear unremarkable. Scattered foci of high T2 signal intensity are seen within the periventricular white matter as well as near the trigon es bilaterally.. Midline structures show no abnormality. Diffusion-weighted imaging shows no evidence of restricted diffusion. The susceptibility weighted images do not reveal any evidence for micro-hem orrhage. The bone marrow signal is within normal limits. Paranasal sinuses and mastoid air cells: No significant paranasal sinus disease. Visualized orbits: Orbital contents are intact. IMPRESSION: 1. No evidence of intracranial mass or acute/subacute infarct. 2. Nonspecific white matter changes, this is more than expected for patient of this age. Correlate fo r demyelination finding less likely be chronic small vessel ischemic disease in a 43-year-old.
== END | disposition home or self-care (01) ==
LOC: RADMRIMAIN 16:49
PROVIDERS: ATTEND Family Medicine
DX: G93.89 Other specified disorders of brain (principal)
CPT/HCPCS: 70551

== ENCOUNTER → 2024-03-22 | Outpatient (CLI) | payer OTHER ==
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
== END | disposition home or self-care (01) ==
LOC: RADMRIMAIN 19:01
PROVIDERS: ATTEND Orthopaedic Surgery
DX: M51.17 Intervertebral disc disorders with radiculopathy, lumbosacral region (principal); M47.27 Other spondylosis with radiculopathy, lumbosacral region
CPT/HCPCS: 72148

== ENCOUNTER → 2024-08-13 | Outpatient (CLI) | payer OTHER ==
[2024-08-13 16:06] LABS: HCT 43.4 % (39.6-50.0); HGB 14.8 g/dL (13.0-17.0); MCH 30.4 pg (27.0-32.0); MCHC 34.1 g/dL (32.0-37.0); MCV 89.1 FL (80.0-97.0); Mean Platelet Volume 10.3 FL (9.5-12.2); NRBC Per 100 WBC 0 X 10*3/uL (0.00-0.01); Platelet Count 262 X 10*3/uL (140-440); RBC 4.87 X 10*6/uL (4.40-5.60); RDW 14.5 % (11.5-14.5); WBC 8.82 X 10*3/uL (4.50-10.00)
[2024-08-13 16:15] LABS: ALT 34 U/L (10-49); AST 38 U/L (14-35); Albumin 4.5 g/dL (3.8-4.9); Albumin/Globulin Ratio 1.67 Ratio (1.60-3.17); Alkaline Phosphatase 159 U/L (41-126); BUN/Creat Ratio 8.78 Ratio (12.00-20.00); Blood Urea Nitrogen 7.9 mg/dL (9.0-27.0); Calcium 9.5 mg/dL (8.7-10.3); Carbon Dioxide 25.2 mmol/L (21.6-31.8); Chloride 101 mmol/L (96-109); Globulin 2.7 g/dL (1.6-3.3); Glucose 95 mg/dL (70-110); Potassium 3.7 mmol/L (3.5-5.5); Sodium 140 mmol/L (135-145); Total Bilirubin 0.5 mg/dL (0.3-1.2); Total Protein 7.2 g/dL (6.2-8.2)
== END | disposition home or self-care (01) ==
LOC: LABWHC1 10:59
PROVIDERS: ATTEND Orthopaedic Surgery
DX: Z01.818 Encounter for other preprocedural examination (principal); M48.02 Spinal stenosis, cervical region; Z79.899 Other long term (current) drug therapy; I10 Essential (primary) hypertension
CPT/HCPCS: 36415; 80053; 85027; 93005

== ENCOUNTER 2024-08-31 11:25 | Day surgery (SDC) | payer OTHER ==
[2024-08-24 16:58] VITALS: BMI 21.5
--- NOTE | 2024-08-29 12:31 | P.HPOR ---
History of Present Illness H&P Date: 08/02/24 .D:Date: 08/02/24 : 04:43pm .T:Title: NEW PATIENT Barbra [facility] [address] [place] [id number]| DO CA MARKHAM, MSN, DOG OBEDIENCE INSTRUCTOR-C DEMOGRAPHICS: Age: 43 year Height: 5'9" Weight: 147 lbs BP:128/78 BMI: 21.71 kg/m2 Occupation: Disabled CC: lumbar pain * VAS: 5 HISTORY: Mr. Amador presents to the office today, 08/06/24, for a recheck of his lumbar spine. Patient reports low back pain that is increased with walking, standing, and sitting. He is having night time symptoms that keep him awake. Since last visit patient received bilateral L4-S1 facet block injections. He notes 20% relief for 2 weeks from these. Patient is currently taking [place] without resolution of his symptoms. Patient denies any f/c/sob/cp, perineal numbness or tingling, bowel, or bladder incontinence/retention. Patient is ambulatory with a cane. P1 The patients past social, medical, family, surgical history, as well as review of systems, have been reviewed. Please refer to the History and Physical form that has been scanned into our electronic medical record system. R0 16 points review of systems completed and as stated in HPI, all other systems reviewed are negative. PAST TREATMENTS: PAST IMAGING: YES - TRAUMA RELATED: NO - WORK RELATED: NO - PT IN LAST 6 MONTHS: YES - PHYSICIAN DIRECTED HOME EXERCISE PROGRAM: YES - ACTIVITY MODIFICAITON: YES - MEDICATIONS: YES - ALTERNATIVE INTERVENTIONS (CHIROPRACTIC, ACCUPUNCTURE, MASSAGE, RICE): YES - BRACING: NO - INJECTIONS (HAO, TF, RFA): YES - MEDICAL HISTORY: Past Medical History: REVIEWED STATED IN CHART Past Surgical History: REVIEWED STATED IN CHART Social History: REVIEWED STATED IN CHART SMOKING: Never smoker ETOH: None SUBSTANCES: None Family History: REVIEWED STATED IN CHART P1 Current Medications: Rx: blood pressure medication , Ref: 0 Instructions: 10 mg 1 daily Rx: water pill , Ref: 0 Instructions: .25 mg 1 daily Rx: TylenoL Ref: 0 Rx: HYDROcodone 7.5 mg-acetaminophen 325 mg tablet Ref: 0 Instructions: take 1 tablet by oral route every 6 hours as needed for pain Rx: ibuprofen 600 mg tablet Ref: 0 Instructions: TAKE 1 TABLET(600 MG) BY MOUTH 2 TO 3 TIMES PER DAY WITH FOOD NEEDED P1 PHYSICAL EXAM: General: AOX3, NAD, Well hydrate, well nourished HEENT: No lumps or masses Extremities: No color changes, no pooling Heart: RRR, no murmur, no gallop Lungs: CTAB, no w/r/r INTEGUMENT: Appearance: Normal color and turgor Surgical Incisions: Hairy Patches: ABSENT Dorsal Skin Dimples: Normal [employer] spots: ABSENT PALPATION: TTP Midline: NO Paracervical: NO Parathoracic: NO Paralumbar: YES SIJ TESTING: TESTED/NOT TESTED * [place] Finger: * FABER4: * Compression: * Distraction: * Thigh thrust: * Hip thrust: POSTURAL BALANCE: Coronal: BALANCED Sagittal: BALANCED Shoulder height: LEVEL Pelvic Girdle: LEVEL ROM AND APPEARANCE: Neck: UNRESTRICTED Lumbar: RESTRICTED Shoulders: Symmetrical Hips: Symmetrical Knees: Symmetrical Hands: Symmetrical Feet: Symmetrical VASCULAR STATUS: PALPABLE PULSES B/L UE AND LE 2/4 RAD/ULNAR/DP/PT Edema: NONE NEUROLOGICAL EXAMINATION: Mental Status: Awake, alert, fully oriented with normal attention, concentration, and memory. Fluent appropriate speech. CRANIAL NERVES: I: Olfactory not assessed. II: Visual acuity normal, no visual field deficit noted with confrontation. III, IV: Normal pupillary reflexes & intact extraocular movements without nystagmus. V, : Intact symmetrical facial sensation. VII: Intact symmetrical facial motor movement: Hearing intact. IX, X: Intact gag, swallow, & normal voice. XI: Sternocleidomastoid, trapezius function intact. XII: Tongue midline with normal movements. TENSIONING: * L'HERMITTE'S SIG:NEG SPURLUNG'S SIGN:NEG CUBITAL TUNNEL COMPRESSION:NEG TINELS AT WRIST:NEG STRAIGH LEG RAISE:NEG CONTRALATERAL STRAIGHT LEG RAISE: NEG MOTOR EXAM (0-5/5, NT) Muscle appearance: Symmetrical, without signs of atrophy or dystrophy UPPER EXTREMITY RIGHT LEFT Shoulder Abduction 5 5 Biceps 5 5 Triceps 5 5 Wrist Extension 5 5 Hand Intrinsics 5 5 Spring Former Hand 5 5 LOWER EXTREMITY RIGHT LEFT Hip Flexion 4 4 Knee Extension 4 4 Knee Flexion 4 4 Dorsiflexion 4 4 Plantarflexion 4 4 EHL 4 4 FHL 4 4 REFLEXES (0-4/2, NT): RIGHT LEFT Bicep 2 2 Brachioradialis 2 2 Triceps 2 2 Patellar 2 2 Achilles 2 2 PATHOLOGICAL REFLEXES: RIGHT LEFT FARMER'S ABSENT ABSENT CLONUS ABSENT ABSENT BABINSKI ABSENT ABSENT RECTAL TONE: INTACT/NT SENSATION (0-4, NT): Sensation intact to LT and Pain * C5-T1 distribution BUE * L2-S2 distribution BLE *Exceptions below* DERMATOMAL DEFICIT/RADICULAR PATTERN: NA GAIT AND FUNCTIONAL EVALUATION: AMBULATORY AID cane ROMBERG'S TEST INTACT HAND AND FINGER DEXTERITY INTACT YES DYSDIADOCHOKINESIA EXAM NEG B/L YES TOE/HEEL WALK INTACT WITH GOOD BALANCE YES SQUAT AND RISE W/O ASSISTANCE TO 60 DEG KNEE FLEXION YES SINGLE LEG STANCE INTACT TRENDELENBURG NEG IMAGING: No new images taken today IMPRESSION: It was my pleasure to have seen and examined Sanchez. I reviewed the patient's clinical syndrome, physical findings, and imaging studies during the appointment today. It is my impression that the patient has a diagnosis of. 1.L4-S1 facet arthropathy 2.Status post C4-7 ACDF PLAN: DISCUSSION: -I have discussed the patients clinical signs and sx as well as treatment options. At this time the patient would like to pursue more invasive options as the conservative options of Rx and OTC meds, PT, Home exercise, Chiropractics, massage, Ice, heat, ADL limitations have failed to give him lasting relief. He is also skeptical of RFA as he had it once time before in the past and had conflicting results. After watching an informational video on the MBT he has elected to proceed as follows: SURGICAL RECOMMENDATION -Bilateral medial branch transection L4-S1 Surgical Procedure Risk Review Sanchez Amador is a 43 year old male presenting for evaluation of sudden onset of severe sharp low back pain as well as facet pain, pain with ROM and backbending. It was my pleasure to have seen and examined Mr. Amador. In our visit today we have had a chance to go over subjective complaints, physical examination findings and treatments, including the natural course history without intervention and various interventional options. The imaging de monstrates facet arthropathy that is severe from L4-S1 bilaterally. Axial degenerative changes with disc degeneration and dessication . On physical exam, Mr. Amador demonstrates TTP over the facets L4-S1 b/l that is painful, there is pain with ROM and specifically back bending and side bending of the lumbar spine at L4-S1 with radiation in to the buttock b/l. There is no real radiculopathy rating noted. No lesions no fractures. . I explained to the patient that as his condition progresses it could cause Continues and progressive pain with natural progression . At this time, based on the patients imaging and physical exam, I recommend surgery in the form or a: L4-S1 bilateral medial branch transection . I discussed the risk and benefits of this procedure at length with Mr. Amador. The patient agreed to consider pursuing the procedure mentioned above. Plan: 1. Bilateral medial branch transection L4-S1 2. Follow up with PCP for surgical clearance 3. Review of surgical risks and benefits as well as an educational packet on the proposed surgical procedure. 4. pre op labs, ekg, pre op planning. Risks: All surgical procedures come with inherent risks, including those related to positioning, anesthesia, intraoperative findings, and postoperative complications. It is important to understand that surgery does not come with any guarantee of a successful outcome as complications and adverse events are always possible. The patient was given a handout in office today discussing the surgical procedure and risks associated with the intervention, both of which were discussed with the patient. These risks include but are not limited to the following: ? Experiencing same, different or even worse symptoms in back, neck, arms, or legs compared to before surgery. ? Requiring further surgery or other forms of treatment presently or at some time in the future at same or other levels of the intended spine surgery. ? On an extreme but fortunately relatively rare basis severe complication such as blindness, stroke, heart attack, temporary and/or permanent nerve injury, paralysis, coma, or may occur, sometimes without known explanation. ? Surgical complications may include but are not limited to risk of infection, fluid accumulation in the surgical dissection site, including a seroma or hematoma, that requires additional surgery, wound drainage, bleeding, new numbness or weakness, vision changes/loss, spinal fluid leakage, non-healing and/or infected incision, headaches, difficulty or inability to swallow, hoarseness, hemopneumothorax, pneumothorax, impotence, retrograde ejaculation, vaginal dryness; injury to nerves, spinal cord, blood vessels, lymphatics or other vital organs (i.e., bowel injury, injury to the great vessels); heterotopic bone formation; complications related to the hardware such as screws, rods, cages including misplaced hardware, device failure, instrumentation at the wrong spine level, hardware fracture/breakage, or hardware loosening; vertebral failure of the spinal column above or below the newly placed hardware; retained surgical instrumentations or devices and the need for further surgery. ? Medical risks of the planned spine surgery include but are not limited to generalized Infections to the whole body or local areas outside of the surgical site (sepsis), heart attack, bleeding, anaphylaxis, meningitis, seizure, epilepsy, hearing loss, burn dumont, laceration of the head or other areas of the body, bruising, hypersensitivity of the skin, bladder over distension; allergic reaction; shoulder injury related to positioning; fat, blood and air clots to other areas of the body like heart, lungs, brain; failure of internal organs such as lungs, kidneys, liver and excessive bleeding. If blood transfusions are necessary, note that transfusions may cause intolerance reactions such as anaphylaxis or other complex reactions. Despite best efforts, the results of spine surgery might not heal in terms of bone, soft tissues such as skin, fascia, ligaments, and joints. Additionally, in order to achieve best possible results, spine surgery may be carried out beyond the initially planned levels and involve decompression, fusion including insertion of hardware at levels other than the original intended area of surgical interest change some portions of the procedure in order to ensure the best possible outcomes. With spine surgery and spinal fusion, there are different off label uses of i nstrumentation (devices, implants and hardware) as well as biological substances (bone morphogenic proteins, demineralized bone matrix) as well as using extra bone from allograft sources (i.e. cadaver bone) or autograft (iliac crest bone, ribs, or the spine itself). The patient has been given information about these practices and their inherent risks and benefits. Maddie Galloway Physician Assistants are medically trained surgical providers who function in the outpatient, inpatient, and operating room setting under the direct supervision of the attending surgeon.They assist in the op erating room with direct supervision of the attending surgeons. The patient has had a chance to review all the listed information, has been given print outs detailing this information, and has had all his/her questions answered to their satisfaction. It was my pleasure to have seen and examined Mr. Amador. In our visit today we have had a chance to go over my understanding of our patient's current condition, the natural course history without intervention and various interventional options. Questions were invited and answered, and the patient wishes to proceed as outlined above. I have seen and examined the patient for 25 minutes and we have spent more than 50% of the time in repeat and detailed counseling about the patient's condition, its natural course history with out and as much as can be predicted with surgery and re-review of various surgical treatment options. In conclusion,Mr. Amador and his spouse/partner requested we proceed with the above suggested surgery and are willing to accept risks and limitations of the suggested surgery as nature of the disease process and our best attempts at treatment for the condition. AUTHORIZATION REQUEST & SURGICAL RATIONALE Patient: Sanchez Amador : 1980 Procedure: Bilateral Medial Branch Transection L4-S1 CPT Code(s): * 83592-11 (Bilateral medial branch nerve transection, lumbar) ICD-10 Code(s): * M47.816 (Spondylosis without myelopathy or radiculopathy, lumbar region) M47.26 (Other spondylosis with radiculopathy, lumbar region) RATIONALE FOR SURGERY: Mr. Amador is a 43-year-old male with severe lumbar facet arthropathy who has failed conservative management. Clinical findings support the medical necessity for surgical intervention based on: * Failed Conservative Treatment: * Physical therapy Medication management including [place], NSAIDs Activity modification Home exercise program Alternative interventions (chiropractic, massage) Recent bilateral L4-S1 facet blocks with only 20% temporary relief * Clinical Findings: * Tenderness to palpation over L4-S1 facets bilaterally Restricted lumbar range of motion Pain with back bending and side bending VAS pain score of 5/10 Night time symptoms affecting sleep Requires ambulatory assistance (cane) * Imaging Findings: * Severe facet arthropathy L4-S1 bilaterally Axial degenerative changes Disc degeneration and desiccation * Functional Impairment: * Disabled occupational status Increased pain with walking, standing, and sitting Sleep disruption Failed response to less invasive interventions The patient has demonstrated appropriate surgical indications including: * Failure of conservative management Documented pathology on imaging Correlation between clinical symptoms and imaging findings Functional limitation affecting quality of life Previous favorable but temporary response to diagnostic facet blocks The proposed bilateral medial branch transection at L4-S1 is the most appropriate surgical intervention given the patient's clinical presentation and previous treatment responses. The patient has been educated on surgical risks and benefits and wishes to proceed with surgical intervention. Note: While I've provided typical CPT and ICD-10 codes based on the procedure and diagnosis described, please verify these codes as I don't have real-time access to current medical coding databases and may not be fully accurate. FOLLOW UP: Post-operation PLAN AT NEXT VISIT: Post-op recheck PATIENT EDUCATION: Medications Reviewed: YES In our visit today Mr. Amador and I have had a chance to go over my understanding of the patient's current condition, the natural course history without intervention and various interventional options. Questions were invited and answered, and the patient wishes to proceed as outlined above. I will be sure to keep you updated after Mr. Amador returns here for further follow-up. Thank you again for your referral. Please do not hesitate to contact me if you have any further questions. Signed and authenticated by: Silverio Landers [facility] [address] [place], [place] [id number] . This message is confidential, intended only for the named recipient(s) and may contain information that is privileged or exempt from disclosure under applicable law. If you are not the intended recipient(s), you are notified that the dissemination, distribution or copying of this information is prohibited. If you received this message in error, please notify the sender then delete this message. # SIGNED BY Silverio Caldera (GOO)08/11/2024 05:49PM Past Medical History Past Medical History: Hyperlipidemia, Hypertension, Osteoarthritis (OA), Skin Disorder Additional Past Medical History / Comment(s): Hx pericarditis, hx bowel obstruction, chronic back, neck and shoulder pain, acne. History of Any Multi-Drug Resistant Organisms: None Reported Past Surgical History: Bowel Resection, Joint Replacement Additional Past Surgical History / Comment(s): Pain clinic procedures, abdominal surgery for scar tissue, bilateral hip replacement. Past Anesthesia/Blood Transfusion Reactions: No Reported Reaction Smoking Status: Current every day smoker - Past Family History Mother Family Medical History: No Reported History Additional Family Medical History / Comment(s): . Father Family Medical History: Coronary Artery Disease (CAD) Medications and Allergies Home Medications Medication Instructions Recorded Confirmed Type hydroCHLOROthiazide 25 mg PO HS 07/26/19 08/24/24 History amLODIPine [Norvasc] 10 mg PO QAM 07/10/20 08/24/24 History Omeprazole [PriLOSEC] 20 mg PO QAM 07/05/21 08/24/24 History Ergocalciferol [Vitamin D2 (1250 1,250 mcg PO SA 05/14/22 08/24/24 History Mcg = 84197 Iu)] Atorvastatin [Lipitor] 40 mg PO HS 08/22/22 08/24/24 History buPROPion SR [Wellbutrin SR] 150 mg PO BID 03/26/23 08/24/24 History Apixaban [Eliquis] 2.5 mg PO BID #60 tab 11/05/23 08/24/24 Rx HYDROcodone/APAP 7.5-325MG [[place] 1 each PO Q6HR PRN #28 tab 11/05/23 08/24/24 Rx 7.5] Sennosides/Docusate Sodium 2 each PO DAILY PRN #30 tablet 11/05/23 08/24/24 Rx [Senna-S 8.6-50 mg Tablet] Minocycline HCl [Minocin] 100 mg PO Q12H 08/24/24 08/24/24 History Allergies Allergy/AdvReac Type Severity Reaction Status Date / Time lisinopril Allergy Rash/Hives, Verified 08/24/24 16:45 SWELLING OF FACE Physical Examination Osteopathic Statement: *. No significant issues noted on an osteopathic structural exam other than those noted in the History and Physical/Consult.
[~2024-08-31 11:25] MED LIST changes: -ACETAMINOPHEN TAB 500 MG TAB PO PRN; -MELOXICAM 7.5 MG TAB PO PRN
[2024-08-31] MEDS: ACETAMINOPHEN TAB 500 MG TAB PO PRN (11:55)
[2024-08-31] MEDS: GABAPENTIN 300 MG CAP PO PRN (11:56)
[2024-08-31] MEDS: IV FLUID CONTINUATION 1,000 ML IV ONE ×2 (12:07→14:30)
[2024-08-31] MEDS: ONDANSETRON 4 MG/2 ML VIAL IVP PRN (12:08)
[2024-08-31] MEDS: LACTATED RINGERS 1,000 ML IV SCH (12:08)
[2024-08-31] MEDS ORDERED: TRANEXAMIC 1,000 MG/100ML-NACL PREMIX BAG ONE (12:30)
[2024-08-31] MEDS ORDERED: MIDAZOLAM 2 MG/2 ML VIAL ONE (12:30)
[2024-08-31] MEDS ORDERED: PHENYLEPHRINE 10 MG/ML VIAL ONE (12:30)
[2024-08-31] MEDS ORDERED: PROPOFOL 10 MG/ML 20 ML VIAL IV ONE (12:30)
[2024-08-31] MEDS ORDERED: KETOROLAC 15 MG/ML 1 ML VIAL ONE (12:30)
[2024-08-31] MEDS ORDERED: fentaNYL (PF) 50 MCG/ML 2 ML AMP ONE (12:30)
[2024-08-31] MEDS ORDERED: SUCCINYLCHOLINE CHLORIDE 200 MG/10 ML VIAL IV ONE (12:30)
[2024-08-31] MEDS: BUPIVACAINE (PF) 0.5% 30 ML VIAL SQ ONE ×2 (12:51)
[2024-08-31] MEDS: LIDOCAINE 2%-EPI 1:100,000 20 ML VIAL SQ ONE ×2 (12:51)
[2024-08-31] MEDS: MIDAZOLAM 2 MG/2 ML VIAL IV ONE (14:33)
--- NOTE | 2024-08-31 14:38 | FL ---
Fluoroscopy History: L4-S1 Transection L4-S1 Transection 1.18min fluoro time 7.0431 [facility], , 08/31/2024 2:36 PM
--- NOTE | 2024-08-31 14:39 | XR ---
Fluoroscopy History: L4-S1 Transection L4-S[address] Caldera [facility], , 08/31/2024 2:37 PM
[2024-08-31] MEDS: MIDAZOLAM 2 MG/2 ML VIAL IVP ONE (16:10)
[2024-08-31] MEDS: HYDROmorphone 0.5 MG/0.5 ML SYRINGE IVP PRN (16:13)
[2024-08-31] MEDS ORDERED: LORazepam 2 MG/ML INJ IV PRN (19:16)
[2024-08-31 20:14] LABS: Basophils # (A) 0.1 k/uL (0-0.2); Basophils % (A) 1 %; Eosinophils # (A) 0.1 k/uL (0-0.7); Eosinophils % (A) 1 %; HCT 46.1 % (39.0-53.0); HGB 14.9 gm/dL (13.0-17.5); Lymphocytes # (A) 2.6 k/uL (1.0-4.8); Lymphocytes % (A) 25 %; MCH 30.9 pg (25.0-35.0); MCHC 32.4 g/dL (31.0-37.0); MCV 95.3 fL (80.0-100.0); Mean Platelet Volume 8.4; Monocytes # (A) 0.7 k/uL (0-1.0); Monocytes % (A) 7 %; Neutrophils # (A) 6.6 k/uL (1.3-7.7); Neutrophils % (A) 64 %; Platelet Count 173 k/uL (150-450); RBC 4.83 m/uL (4.30-5.90); RDW 14.7 % (11.5-15.5); WBC 10.3 k/uL (3.8-10.6)
[2024-08-31 20:24] LABS: ALT 53 U/L (4-49); AST 79 U/L (17-59); African American GFR (CKD) >90 (>60 ml/min/1.73 sqM); Albumin 4.1 g/dL (3.5-5.0); Albumin/Globulin Ratio 1.5; Alkaline Phosphatase 139 U/L (38-126); Anion Gap 7 mmol/L; Blood Urea Nitrogen 8 mg/dL (9-20); Calcium 8.5 mg/dL (8.4-10.2); Carbon Dioxide 26 mmol/L (22-30); Chloride 103 mmol/L (98-107); Globulin 2.7 g/dL; Glucose 107 mg/dL (74-99); Magnesium 1.7 mg/dL (1.6-2.3); Non-African American GFR(CKD) >90 (>60 ml/min/1.73 sqM); Potassium 3.8 mmol/L (3.5-5.1); Sodium 136 mmol/L (137-145); Total Bilirubin 1.3 mg/dL (0.2-1.3); Total Protein 6.8 g/dL (6.3-8.2)
[2024-08-31] MEDS: SENNOSIDES-DOCUSATE SODIUM 1 EACH TAB PO PRN (20:27)
[2024-08-31] MEDS: PANTOPRAZOLE 40 MG/10 ML VIAL IVP SCH (20:27)
[2024-08-31] MEDS: ATORVASTATIN 40 MG TAB PO SCH (20:27)
[2024-08-31] MEDS: buPROPion SR 150 MG TABLET.ER PO SCH (20:51)
[2024-08-31] MEDS: ACETAMINOPHEN TAB 325 MG TAB PO PRN (20:51)
--- NOTE | 2024-08-31 21:56 | P.OP ---
Date of Procedure: 08/31/24 Preoperative Diagnosis: 1. L4-S1 FACET ARTHROSIS 2. LOW BACK PAIN Postoperative Diagnosis: 1. L4-S1 FACET ARTHROSIS 2. LOW BACK PAIN Procedure(s) Performed: L4-5 AND L5-S1 BILATERAL MEDIAL BRANCH TRANSECTION Implants: NONE Anesthesia: GETA Surgeon: Silverio Caldera Pest Management Supervisor #1: Ran Layne (WAS PRESENT AND ASSISTED WITH ALL ASPECTS OF THE CASE FROM POSITION TO DRESSING) Estimated Blood Loss (ml): 20 IV fluids (ml): 1,000 Urine output (ml): 0 Pathology: none sent Condition: stable Disposition: PACU Indications for Procedure: Sanchez Amador is a 43 year old male presenting for evaluation of sudden onset of severe sharp low back pain as well as facet pain, pain with ROM and backbending. It was my pleasure to have seen and examined Mr. Amador. In our visit today we have had a chance to go over subjective complaints, physical examination findings and treatments, including the natural course history without intervention and various interventional options. The imaging demonstrates facet arthropathy that is severe from L4-S1 bilaterally. Axial degenerative changes with disc degeneration and dessication . On physical exam, Mr. Amador demonstrates TTP over the facets L4-S1 b/l that is painful, there is pain with ROM and specifically back bending and side bending of the lumbar spine at L4-S1 with radiation in to the buttock b/l. There is no real radicu lopathy rating noted. No lesions no fractures. . I explained to the patient that as his condition progresses it could cause Continues and progressive pain with natural progression . At this time, based on the patients imaging and physical exam, I recommend surgery in the form or a: L4-S1 bilateral medial branch transection . I discussed the risk and benefits of this procedure at length with Mr. Amador. The patient agreed to consider pursuing the procedure mentioned above. Plan: 1. Bilateral medial branch transection L4-S1 Description of Procedure: BILATERAL L4-S1 MBT The patient was seen and examined in the preoperative area. All preoperative protocols were followed. Informed consent was obtained, risks and benefits of the procedure were discussed at length. Risks including bleeding, infection, damage to the surrounding tissue and risk of reoperation were discussed with the patient. Risk of anesthesia up to and including was discussed with the patient. These are outlined in the risk review. They were willing to accept these risks and all of the risks of surgery. The patient was given a weight- based dose of antibiotics in the form of 2 g Ancef. The patient was seen and evaluated by the anesthesia team who deemed them fit for surgery. The sites were marked, the patient was willing to proceed with the procedure. The patient was transferred to the operative suite by the Department of anesthesia. They were then drifted off to sleep by the department anesthesia and GETA was performed. The patient tolerated this well. Once confirmation of lines and ventilation the patient was transferred to a prone Lauri table very carefully. All bony prominences including wrists, elbows, axilla, chest, hips, and thighs, and feet were padded very well. Special attention was paid to the genitalia and these were padded accordingly. SCDs were placed on bilateral lower extremities and were connected. Arms were well padded and placed on arm boards up and out in the 90/90 position. Once in position, again we confirmed good ventilation capabilities and that lines were running appropriately. The patient's lumbar spine was then exposed. 1010s were placed outlining the incision sites. Standard alcohol was used to clean the incision sites and allowed to dry. C-arm was used to biomark the patient and confirm levels for incision which were marked with a skin marker. Operative briefing was performed with all teams and everyone in agreement to proceed. The patient was then prepped and draped in a normal sterile fashion. Timeout was then performed and all parties were in agreement with the procedure to be performed. Starting on the right side, an 18-gauge needle was used to localize the L4-L5 and L5-S1 facet joints. Lidocaine 2% with epi and Marcaine .25% w/o placed in these areas. Skin nicks were then made and a trocar for the scope was entered. X-ray used to localize these areas. Once this was confirmed, accessory portals were made and trocars placed through here. We then used the ArthroCare wand to skeletonize the transverse processes on the right-hand side at L4-L5 and L5-S1 as well as sacral ala. This was then followed out medially until the L4-L5 and L5-S1 facet joints medially and mamillary processes were identified as well as the ligaments in these areas. Nerves were identified at L4-L5 and L5-S1 levels and visualized directly when they were transected. ArthroCare wand was then used to burn the areas to retract the nerve ends. The procedure was then repeated on the left side in identical fashion at L4-L5 and L5-S1 levels. The scope was lavaged with pictures taken in these areas and inspected; there was no damage or issues and no bleeding. The scopes were removed. The wounds were then cleaned and simple stitches were placed in the skin and they were glued. These were then dressed sterilely with Band-Aids. The patient was transferred back to their hospital bed atraumatically. Patient was then awakened and extubated by the department of anesthesia having tolerated the procedure very well with no complications. They were transferred to the postoperative care unit in stable condition.
[2024-09-01] MEDS: HYDROcodone/APAP 7.5-325MG 1 EACH TAB PO PRN (00:51)
[2024-09-01] MEDS: HYDROmorphone 0.5 MG/0.5 ML SYRINGE IVP STA (05:35)
[2024-09-01] MEDS: amLODIPine 10 MG TAB PO SCH (08:11)
[2024-09-01 08:39] VITALS: BP 142/88; PULSE 71; RESP 18; TEMP 98.2
--- NOTE | 2024-09-01 15:23 | P.HPIM ---
History of Present Illness H&P Date: 09/01/24 This is a 44-year-old male who was initially admitted and an outpatient procedure with Dr. Caldera for L4-5 and L5-S1 bilateral medial branch transection. According to nursing staff and postop patient developed some increasing agitation and what appeared to be like panic attacks and anesthesia felt patient should be observed overnight on telemetry monitoring for any further episodes. Patient did not openly admit he drinks heavily daily with last drink being just before surgery. Patient also admits to using THC daily. Patient admitted to medicine and monitored overnight maintained on CIWA protocol although did not require any Ativan and did not have any further episodes. Patient will be cleared for discharge and instructed to follow-up with orthopedics as well as primary care provider on discharge. Patient does follow with Dr. Bedoya in the outpatient setting with a past medical history of hyperlipidemia, hypertension, osteoarthritis, chronic back neck and shoulder pain, depression, currently everyday smoking, heavy drinking daily, and marijuana use. REVIEW OF SYSTEMS: CONSTITUTIONAL: No fever, no malaise, no fatigue. HEENT: No recent visual problems or hearing problems. Denied any sore throat. CARDIOVASCULAR: No chest pain, orthopnea, PND, no palpitations, no syncope. PULMONARY: No shortness of breath, no cough, no hemoptysis. GASTROINTESTINAL: No diarrhea, no nausea, no vomiting, no abdominal pain. NEUROLOGICAL: No headaches, no weakness, no numbness. HEMATOLOGICAL: Denies any bleeding or petechiae. GENITOURINARY: Denies any burning micturition, frequency, or urgency. MUSCULOSKELETAL/RHEUMATOLOGICAL: Reports significant back pain ENDOCRINE: Denies any polyuria or polydipsia. The rest of the 14-point review of systems is negative. PHYSICAL EXAMINATION: GENERAL: This is a pleasant 44-year-old -[place] male who is alert and oriented x3, not in any acute distress. Well developed, well nourished. Appears older than stated age HEENT: Pupils are round and equally reacting to light. EOMI. No scleral icterus. No conjunctival pallor. Normocephalic, atraumatic. No pharyngeal erythema. No thyromegaly. CARDIOVASCULAR: S1 and S2 present. No murmurs, rubs, or gallops. PULMONARY: Chest is clear to auscultation, no wheezing or crackles. ABDOMEN: Soft, nontender, nondistended, normoactive bowel sounds. No palpable organomegaly. MUSCULOSKELETAL: No joint swelling or deformity. Surgical dressings are dry and intact of the lumbar spine EXTREMITIES: No cyanosis, clubbing, or pedal edema. NEUROLOGICAL: Gross neurological examination did not reveal any focal deficits. SKIN: No rashes. Assessment: Recent L4-5 and L5-S1 bilateral medial branch transection, postop day 1 Concerns of possible alcohol withdrawal with postoperative panic attack and increased agitation that improved after Valium History of hyperlipidemia History of hypertension Osteoarthritis Chronic back pain History of pericarditis History of depression Continued ongoing nicotine dependence THC use Daily drinker with initial concerns of alcohol withdrawal, patient is not actively withdrawing at this time GI prophylaxis DVT prophylaxis Full code Plan: Patient was admitted as orthopedics and anesthesia did not feel comfortable sending him home after experiencing an episodic panic attack postoperatively in the PACU and was admitted to medicine with telemetry monitoring Full medications reviewed and resumed as appropriate Continue with pain management per orthopedics This was an outpatient procedure and patient was cleared by orthopedics and no need to reconsult per Dr. Caldera while being watched overnight by medicine Strongly encourage complete alcohol cessation and also recommend AA meetings and continued counseling Patient is medically stable with no further events overnight and is completely alert and oriented x 3. at the bedside with questions and concerns that were answered to the best of our ability. Patient will be discharged today The impression and plan of care has been dictated by Nurse Sadie Prac titioner as directed. Dr. Jessica MD I have performed a history and examination and MDM of this patient, discussed the same with the dictator, and agree with the dictator's assessment and plan as written ,documented as a scribe. Based on total visit time, I have performed more than 50% of the visit. Past Medical History Past Medical History: Hyperlipidemia, Hypertension, Osteoarthritis (OA), Skin Disorder Additional Past Medical History / Comment(s): Hx pericarditis, hx bowel obstruction, chronic back, neck and shoulder pain, acne. History of Any Multi-Drug Resistant Organisms: None Reported Past Surgical History: Bowel Resection, Joint Replacement Additional Past Surgical History / Comment(s): Pain clinic procedures, abdominal surgery for scar tissue, bilateral hip replacement. Past Anesthesia/Blood Transfusion Reactions: No Reported Reaction Past Psychological History: Depression Additional Psychological History / Comment(s): PT HAS BEEN DOING COUNSELING Smoking Status: Current every day smoker Past Alcohol Use History: Occasional Additional Past Alcohol Use History / Comment(s): SMOKER OF <1 PPD SINCE AGE 15, CURRENTLY DOWN TO 1/2 PPD. USED TO BE A HEAVY DRINKER BUT NOT NOW. Past Drug Use History: Marijuana Additional Drug Use History / Comment(s): Marijuana use daily. Aware no use 24 hrs prior to procedure. - Past Family History Mother Family Medical History: No Reported History Additional Family Medical History / Comment(s): . Father Family Medical History: Coronary Artery Disease (CAD) Medications and Allergies Home Medications Medication Instructions Recorded Confirmed Type hydroCHLOROthiazide 25 mg PO HS 07/26/19 08/24/24 History amLODIPine [Norvasc] 10 mg PO QAM 07/10/20 08/24/24 History Omeprazole [PriLOSEC] 20 mg PO QAM 07/05/21 08/24/24 History Ergocalciferol [Vitamin D2 (1250 1,250 mcg PO SA 05/14/22 08/24/24 History Mcg = 94970 Iu)] Atorvastatin [Lipitor] 40 mg PO HS 08/22/22 08/24/24 History buPROPion SR [Wellbutrin SR] 150 mg PO BID 03/26/23 08/24/24 History HYDROcodone/APAP 7.5-325MG [Remlap 1 each PO Q6HR PRN #28 tab 11/05/23 08/24/24 Rx 7.5-325] Sennosides/Docusate Sodium 2 each PO DAILY PRN #30 tablet 11/05/23 08/24/24 Rx [Senna-S 8.6-50 mg Tablet] Minocycline HCl [Minocin] 100 mg PO Q12H 08/24/24 08/24/24 History Cyclobenzaprine [Flexeril] 5 mg PO TID #21 tablet 08/31/24 Rx HYDROcodone/APAP 7.5-325MG [Remlap 1 tab PO Q6HR PRN #28 tab 08/31/24 Rx 7.5-325] Sennosides/Docusate Sodium [Senna 1 each PO DAILY #20 capsule 08/31/24 Rx Plus 8.6-50 mg Softgel] Allergies Allergy/AdvReac Type Severity Reaction Status Date / Time lisinopril Allergy Rash/Hives, Verified 08/31/24 11:46 SWELLING OF FACE Physical Exam Vitals: Vital Signs Temp Pulse Resp BP BP Pulse Ox 09/01/24 07:33 98.2 F 71 18 142/88 99 09/01/24 00:35 99.1 F 72 17 123/77 99 08/31/24 18:55 98.8 F 84 18 135/86 99 08/31/24 18:21 99.0 F 84 18 135/86 98 08/31/24 17:50 93 18 126/74 99 08/31/24 16:35 96 12 138/83 100 08/31/24 16:05 86 16 145/87 96 08/31/24 15:50 89 18 144/94 100 08/31/24 15:41 82 16 137/89 100 08/31/24 15:26 82 16 119/77 100 08/31/24 15:11 81 16 121/78 100 08/31/24 14:56 82 16 121/81 100 08/31/24 14:41 82 20 126/82 100 08/31/24 14:26 80 20 138/87 100 08/31/24 14:11 96.7 F L 88 20 155/92 96 08/31/24 11:48 99.8 F H 108 H 17 148/82 98 Intake and Output 08/31/24 09/01/24 09/01/24 22:59 06:59 14:59 Intake Total 400 540 Output Total 1000 Balance -600 540 Intake: IV 400 Oral 540 Output: Urine 1000 Other: Voiding Method Urinal # Voids 1 Weight 64.2 kg Results CBC & Chem 7: 08/31/24 19:39 08/31/24 19:39 Labs: Abnormal Lab Results - Last 24 Hours (Table) 08/31/24 Range/Units 19:39 Sodium 136 L (137-145) mmol/L BUN 8 L (9-20) mg/dL Glucose 107 H (74-99) mg/dL AST 79 H (17-59) U/L ALT 53 H (4-49) U/L Alkaline Phosphatase 139 H (38-126) U/L Thrombosis Risk Factor Assmnt - Choose All That Apply Any of the Below Risk Factors Present?: Yes Each Factor Represents 1 point: Age 41-60 years Other Risk Factors: Yes Each Risk Factor Represents 2 Points: Major surgery Other congenital or acquired thrombophilia - If yes, enter type in comment: No Thrombosis Risk Factor Assessment Total Risk Factor Score: 3 Thrombosis Risk Factor Assessment Level: Moderate Risk
--- NOTE | 2024-09-01 15:29 | P.DS ---
Providers Expected date of discharge: 09/01/24 Attending physician: Andrew Barnes Primary care physician: Nehemiah Bedoya Hospital Course: Final diagnosis Recent L4-5 and L5-S1 bilateral medial branch transection, postop day 1 Concerns of possible alcohol withdrawal with postoperative panic attack and increased agitation that improved after Valium History of hyperlipidemia History of hypertension Osteoarthritis Chronic back pain History of pericarditis History of depression Continued ongoing nicotine dependence THC use Daily drinker with initial concerns of alcohol withdrawal, patient is not actively withdrawing at this time GI prophylaxis DVT prophylaxis Full code Discharge disposition Patient is being discharged in a stable condition with guarded prognosis to home. Patient will follow-up with Dr. Bedoya in the outpatient setting upon discharge. Patient is to continue with close outpatient follow-up with Dr. Caldera orthopedics as scheduled. Total time taken is greater than 35 minutes. Hospital course This is a 44-year-old male who was initially admitted and an outpatient procedure with Dr. Caldera for L4-5 and L5-S1 bilateral medial branch transection. According to nursing staff and postop patient developed some increasing agitation and what appeared to be like panic attacks and anesthesia felt patient should be observed overnight on telemetry monitoring for any further episodes. Patient did not openly admit he drinks heavily daily with last drink being just before surgery. Patient also admits to using THC daily. Patient admitted to medicine and monitored overnight maintained on CIWA protocol although did not require any Ativan and did not have any further episodes. Patient will be cleared for discharge and instructed to follow-up with orthopedics as well as primary care provider on discharge. Patient does follow with Dr. Bedoya in the outpatient setting with a past medical history of hyperlipidemia, hypertension, osteoarthritis, chronic back neck and shoulder pain, depression, currently everyday smoking, heavy drinking daily, and marijuana use. Currently no reports of chest pain, shortness of breath, or palpitations. Patient is afebrile. No reports of nausea or vomiting and patient is tolerating diet. Patient has been monitored overnight with no further events reports would like to go home. Patient will be discharged home with at the bedside. Guarded prognosis and high risk for readmissions. PHYSICAL EXAMINATION: GENERAL: This is a pleasant 44-year-old -[place] male who is alert and oriented x3, not in any acute distress. Well developed, well nourished. Appears older than stated age HEENT: Pupils are round and equally reacting to light. EOMI. No scleral icterus. No conjunctival pallor. Normocephalic, atraumatic. No pharyngeal erythema. No thyromegaly. CARDIOVASCULAR: S1 and S2 present. No murmurs, rubs, or gallops. PULMONARY: Chest is clear to auscultation, no wheezing or crackles. ABDOMEN: Soft, nontender, nondistended, normoactive bowel sounds. No palpable or ganomegaly. MUSCULOSKELETAL: No joint swelling or deformity. Surgical dressings are dry and intact of the lumbar spine EXTREMITIES: No cyanosis, clubbing, or pedal edema. NEUROLOGICAL: Gross neurological examination did not reveal any focal deficits. SKIN: No rashes. Please refer to medication reconciliation sheet for a list of medications. The impression and plan of care has been dictated by Renetta Mcgrath, Nurse Practitioner as directed. Dr. Jessica MD I have performed a history and examination and MDM of this patient, discussed the same with the dictator, and agree with the dictator's assessment and plan as written ,documented as a scribe. Based on total visit time, I have performed more than 50% of the visit. Patient Condition at Discharge: Fair Plan - Discharge Summary Discharge Rx Participant: Yes New Discharge Prescriptions: New HYDROcodone/APAP 7.5-325MG [[place] 7.5-325] 1 tab PO Q6HR PRN #28 tab PRN Reason: Pain Sennosides/Docusate Sodium [Senna Plus 8.6-50 mg Softgel] 1 each PO DAILY #20 capsule Cyclobenzaprine [Flexeril] 5 mg PO TID #21 tablet Continue hydroCHLOROthiazide 25 mg PO HS amLODIPine [Norvasc] 10 mg PO QAM Omeprazole [PriLOSEC] 20 mg PO QAM Atorvastatin [Lipitor] 40 mg PO HS Sennosides/Docusate Sodium [Senna-S 8.6-50 mg Tablet] 2 each PO DAILY PRN #30 tablet PRN Reason: Constipation Minocycline HCl [Minocin] 100 mg PO Q12H Ergocalciferol [Vitamin D2 (1250 Mcg = 25239 Iu)] 1,250 mcg PO SA buPROPion SR [Wellbutrin SR] 150 mg PO BID HYDROcodone/APAP 7.5-325MG [[place] 7.5-325] 1 each PO Q6HR PRN #28 tab PRN Reason: Pain Discharge Medication List hydroCHLOROthiazide 25 mg PO HS 07/26/19 [History] amLODIPine [Norvasc] 10 mg PO QAM 07/10/20 [History] Omeprazole [PriLOSEC] 20 mg PO QAM 07/05/21 [History] Ergocalciferol [Vitamin D2 (1250 Mcg = 68059 Iu)] 1,250 mcg PO SA 05/14/22 [History] Atorvastatin [Lipitor] 40 mg PO HS 08/22/22 [History] buPROPion SR [Wellbutrin SR] 150 mg PO BID 03/26/23 [History] HYDROcodone/APAP 7.5-325MG [[place] 7.5-325] 1 each PO Q6HR PRN #28 tab 11/05/23 [Rx] Sennosides/Docusate Sodium [Senna-S 8.6-50 mg Tablet] 2 each PO DAILY PRN #30 tablet 11/05/23 [Rx] Minocycline HCl [Minocin] 100 mg PO Q12H 08/24/24 [History] Cyclobenzaprine [Flexeril] 5 mg PO TID #21 tablet 08/31/24 [Rx] HYDROcodone/APAP 7.5-325MG [[place] 7.5-325] 1 tab PO Q6HR PRN #28 tab 08/31/24 [Rx] Sennosides/Docusate Sodium [Senna Plus 8.6-50 mg Softgel] 1 each PO DAILY #20 capsule 08/31/24 [Rx] Follow up Appointment(s)/Referral(s): Nehemiah Bedoya DO [Primary Care Provider] - 09/08/24 2:30 pm Silverio Caldera DO [Doctor of Osteopathic Medicine] - 09/15/24 10:00 am Patient Instructions/Handouts: Lumbar Spinal Fusion (DC) Activity/Diet/Wound Care/Special Instructions: Spine Discharge and Recovery Instructions Date of Surgery: 08/31/2024 Diagnosis: L4-S1 facet arthropathy Procedure: Bilateral medial branch transection L4-S1 Medications: See medication list All medication refills should be obtained through your primary care doctor or your clinic spine surgeon. Please discuss prescription refills at your follow up appointment. Do not call the hospital for medication refills. Dressing: Leave your dressing in place for a total of 5 days post operatively. Then you may remove your dressing and leave open to air. Keep the area clean and if not able to keep area clean, then cover with sterile gauze and tape. Showering: You may shower 3 days after your procedure allowing soap and water to run over incision. Do not scrub. Do not soak. Blot dry. Follow up: Please confirm a follow up appointment with your surgeon 3 weeks post operatively. Please make an appointment to follow up with your PCP in 1-2 weeks after surgery for evaluation '3 phase, 3-week plan' POST OP WEEKS 1-3 1. Lifting/carrying/pushing/pulling limited to less than 5 pounds. 2. Do not sit for longer than 15 minutes at one time. Get up and walk around. Prolonged sitting is NOT advised. If you lay down, see if you can tolerate laying down on you front (belly side) 3. Walk for periods of 15 minutes = 1 mile but no longer; do it multiple times times each day. 4. Ice your low back after activity. POST OP WEEKS 3-6 1. Lifting limited to less than 20 pounds. 2. Do not sit for longer than 30 minutes at a time. Frequently change positions. Use a sit-to stand workstation or take frequent breaks from sitting if you have returned to work. 3. Walk for 30 minutes each day. If possible, do these three or more times a day POST OP WEEKS 6+ At your 6-week appointment we will give you a physical therapy referral to focus on a core stabilization and strengthening program. You should also work on leg & buttock strengthening, hamstring & quadriceps stretching, and continue a low impact aerobic activity program such as swimming, walking, or riding a stationary bicycle. During the initial 6 weeks after your surgery, you are at the highest risk of re-injuring your spine. You should generally avoid BLT's (bending, lifting and twisting combination motions) and follow the above guidelines to reduce the chance of reinjury. You can anticipate post op appointments in our office at approximately 3 weeks and 6 weeks after your surgery. INCISION CARE: If your incision is not draining you do NOT need to cover it with a dressing. Keep your incision clean, dry and intact. In most cases, we apply skin glue, avani or sutures to the incision at the time of surgery. This will be like a crust or have the appearance of a scab and will fall off in time on its own. The stitches or avani need to be removed at 3 weeks post op appointment. You may begin to shower 3 days after surgery (this allows the glue to gama well). However, please avoid scrubbing the incision site or peeling off any of the skin glue. This will ensure optimal healing of your incision. Also, during this time avoid soaking the incision area in water - this includes swimming pools, hot tubs or baths. No ointments, lotions or oils on the incision until your surgeon allows. Leave avani, sutures or glue in place. Neurological dysfunction that comes on suddenly can also be a sign of a stroke. Below some common symptoms of a stroke are listed: B - balance difficulty such as sudden onset walking or leaning to one side - NEW E - eye problem such as sudden double vision or trouble seeing on one side - NEW F - Facial weakness or numbness on one side - NEW A - Arm or leg weakness or numbness on one side - NEW S - Slurred speech or difficulty with word finding - NEW T - Time is BRAIN! Call 911 as soon as you recognize these symptoms Diet: Consume a regular diet rich in vegetables and lean protein such as chicken or fish. You should consume in a ratio of approximately 20% fats|40% carbohydrates|40%protein. Vegetables, sweet potatoes, brown rice or quinoa are examples of good carbohydrates. Chips, white bread, cookies and sweets/sugar are examples of bad carbohydrates. Limit your bad carbs, go wild with good carbs. "Life's Simple 7" Guidelines as per [place] [employer] These will help you reclaim your life after surgery and pipefitter helper in your recovery, keeping in mind your restrictions. (1) Get Active. Physical activity can help people lose weight, control high blood pressure and cholesterol, feel emotionally better, and sleep better. (2) Control Cholesterol. Avoid a diet high in saturated fat, trans fat, & cholesterol. Limit whole milk & cream, ice cream, butter, egg yolks, processed meats (like sausage and hot dogs), and fatty meats. Choose healthy foods that are low in saturated fat, trans fat and cholesterol which include: Fruits and vegetables, fiber rich grain products (like whole grain pasta and brown rice), lean meat such as chicken, fish, nuts, seeds, and legumes. (3) Eat Better. Eat small portions. Shop at the grocery with a list and do not stray from it. Tips for a healthy diet include: Limit sodium intake to less than 1500mg daily, avoid prepackaged, processed, and fast foods, choose a diet rich in fruits, vegetables, and whole grain, high fiber foods, and limit saturated & cholesterol in your diet. (4) Manage Blood Pressure. If you have high blood pressure, you should have a cuff at home so that you can check your blood pressure regularly. Be sure you have a good cuff. An arm one is generally better than a wrist one. Bring the cuff to a doctor's appointment to validate that the measurements that your cuff are taking are accurate. Take your blood pressure twice daily when you are sitting down and relaxing. Record the numbers in a log and bring this log with you to your doctors' appointments. (5) Lose Weight if your BMI is above 25. A healthy BMI is between 19-25. To calculate Your BMI, you may use a Standard BMI Calculator on the NIH BMI website: <www.nhlbi.nih.gov/guidelines/obesity/BMI/bmicalc.htm>. Weigh oneself daily. If you are overweight, set a goal to lose weight. A pound a week loss if needed is a good target. (6) Reduce Blood Sugar. Limit foods and liquids with "added sugars." (Added sugars include sucrose, fructose, glucose, maltose, dextrose, high fructose corn syrup, corn syrup, concentrated fruit juice and honey). (7) Stop Smoking. If you smoke, quitting smoking is one of the best things that you can do for your health. Smoking increases your risk of heart attack, stroke, and peripheral vascular disease, which is a build-up of plaque in your arteries. Please discard all the cigarettes and lighters in your house. Have a plan for what you will do when you have the urge to smoke. Direct and second- hand smoke shortens your life as well as the lives of your family, friends and others around you. For your health and the health of those around you, please consider quitting! Proper Bending Body Mechanics: Maintain a wide stance with one foot slightly in front of the other. Keep your back straight. Bend utilizing the strength in your hips and knees. Do not bend at the waist. Maintain the lifted object at your waist-level close to your body. Avoid lifting weight that causes immediately pain or pain anywhere in the body afterwards. Smoking/Nicotine If there was ever one thing that you could do to increase your overall health, decrease your risk of cardiovascular problems by about 39% the second you make the choice, it is to STOP SMOKING. Your body's most instant gratification is the second you stop smoking. We have all heard the studies, read the articles but it is true, smoking is extremely bad for your overall health, and moreover it is detrimental to your bone health. Nicotine, IN ANY FORM, kills bone cells, prevents your body from healing fractures, and significantly prolongs healing after surgery. In spine surgery specifically, it increases your risk of not healing your bones to create a fusion and increases your risk of having a revision surgery due to this up to 60%. I know it is hard. I know it feels impossible. But there are ways. Take control of your life. We are here to help you through it. And when you are ready, ask us and we can direct you to help if you desire. Use the START Plan to Quit Smoking (please visit the Helpguide.org website listed below for more information): S = Set a quit date. Choose a date within the next 2 weeks, so you have enough time to prepare without losing your motivation to quit. If you mainly smoke at work, quit on the weekend, so you have a few days to adjust to the change. T = Tell family, friends, and co-workers that you plan to quit. Let your friends and family in on your plan to quit smoking and tell them you need their support and encouragement to stop. Look for a quit ronak who wants to stop smoking as well. You can help each other get through the rough times. A = Anticipate and plan for the challenges you'll face while quitting. Most people who begin smoking again do so within the first 3 months. You can help yourself make it through by preparing ahead for common challenges, such as nicotine withdrawal and cigarette cravings. R = Remove cigarettes and other tobacco products from your home, car, and work. Throw away all your cigarettes (no emergency pack!), lighters, ashtrays, and matches. Wash your clothes and freshen up anything that smells like smoke. Shampoo your car, clean your drapes and carpet, and steam your furniture. T = Talk to your doctor about getting help to quit. Your doctor can prescribe medication to help with withdrawal and suggest other alternatives. If you can't see a doctor, you can get many products over the counter at your local pharmacy or grocery store, including the nicotine patch, nicotine lozenges, and nicotine gum. Resources for Quitting Smoking: <https://www.[place].gov/documents/[facility]/Quit_Tobacco_Resources_for_patients_313 480_7.pdf> Supplementation: Take recommended dosages of Vitamin D and Calcium to help fortify your bones and help them to heal. See your health maintenance packet for dosages and recommended levels. DVT/VTE prophylaxis: You will be given compression stockings from the hospital. Wear these daily for the first two weeks after surgery. You may take them off at night. You may be prescribed a medication to help thin your blood. Take this as directed. If you are not prescribed this medication, early and frequent ambulation has been shown to be the best prophylaxis to deep vein thrombosis and sequelae related to this event. Discharge Disposition: HOME SELF-CARE
== END 2024-09-01 13:28 | disposition home or self-care (01) ==
LOC: OR 11:25 → 4SSUR 18:10 → OR 09-01 13:28
PROVIDERS: ATTEND Hospitalist
DX: M47.26 Other spondylosis with radiculopathy, lumbar region (principal); I10 Essential (primary) hypertension; F41.0 Panic disorder [episodic paroxysmal anxiety]; G89.29 Other chronic pain; F32.A Depression, unspecified; E78.5 Hyperlipidemia, unspecified; F17.210 Nicotine dependence, cigarettes, uncomplicated; E66.9 Obesity, unspecified; Z68.25 Body mass index [BMI] 25.0-25.9, adult; Z79.01 Long term (current) use of anticoagulants; Z88.8 Allergy status to other drugs, medicaments and biological substances; Z96.643 Presence of artificial hip joint, bilateral; Z79.899 Other long term (current) drug therapy
CPT/HCPCS: 80053; 83735; 85025; 72020; 64772; J2250; S0106 ×2; J0690; J2405; J1171 ×2; J0665; J2470 ×2